=== PATIENT | male | born 1965 | race African-American/Black ===

== ENCOUNTER 2024-01-15 14:48 | Outpatient (AMB) | payer OTHER, SELFPAY ==
--- NOTE | 2024-01-15 14:53 | MHC.OFFVIS ---
Intake Visit Reasons: ENP-Neuropathy Intake Note: Patient presents for neuropathy Coding
[2024-01-15 14:59] VITALS: BP 120/84; PULSE 108; O2SAT 98; BMI 22.2
--- NOTE | 2024-01-15 14:59 | A.OFFVIS_ITS ---
Vital Signs 01/15/24 14:59 Height 5 ft 10 in Weight 155 lb BMI 22.2 BP 120/84 Blood Pressure Location Rt brachial Position Sitting Pulse 108 H Pulse Source Pulse Oximeter Pulse Oximetry (%) 98 Oxygen Delivery Method Room Air Intake Visit Reasons: ENP-Neuropathy Intake Note: Patient presents for neuropathy. I'm having numbness in feet at night time before going to bed. Allergies No Known Allergies Allergy (Verified 01/15/24 15:00) Medication List - Last Reconciled 01/15/24 by KRISTIN Ernst allopurinol 300 mg PO DAILY ferrous sulfate (Feosol) 325 mg PO DAILY [id number] 3,000-9,500- 15,000 unit (Creon) caps PO metformin ER 500 mg PO BID metoclopramide HCl 5 mg PO DAILY HPI Comments Details: 58-yr-old male presents for neurological evaluation of: BLE paresthesias. 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 He states he does not have diabetes, his HgA1C was elevated at some point but this has been normal for a while. Pt reports he has BLE distal 1/3 of calves down through entire foot pain and decreased sensation (if he curls his toes it feels funny), which is most noticable once he lies down in bed. He may occasionally have some non-bothersome sensations in his feet. Pt states that he has had this for a little while , at least a yr. He takes Gabapentin 300mg qhs, thinks it helps. Rarely has an episode of more intense BLE pain, again only in bed. He can feel a little off-balance when walking on stairs, finding himself needing to hold onto a banister/railing if on unfamiliar stairs. He can no longer stand on one leg. States if he is walking, he does feel his legs. He has had 4-5 episodes of syncope/pre-syncope- last episodes was 5-8 months ago, now thinks this was being active in hot weather, tries to pace himself and take fluids in the hot weather. DEscribes as seeing a white flash, dizziness, passes out, unsure of duration. When he comes to, he feels ok. One time, he was about to pass out, his brother sat him down and this prevented him from fulling passing out. He states he eats 1-2 meals per day, snacks, has at least 1 meal. Does take salt. Drinks juices/water/milk. Alcohol use- beer use varies- 6 pack/day most days, more if social gathering. Denies headaches, back/neck pain, leg cramps, restless legs, sleep issues. 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 He previously saw Dr Mata. States he has had a nerve conduction study. November labs showed- H&H 11.4 & 33.3, MCV 103.7H, B12 414, folate > 20, Sodium 131 (12/04) 134 (12/17), Ferritin 313 October 2022, MRI BRAIN WITHOUT CONTRAST: unremarkable. Jun 2022: HST- AHI 2/hr w/ O2 amanda 84% (SpO2 < 90% x's 14 min) [facility] Medical History (Updated 01/15/24 @ 16:46 by KRISTIN Ernst) Weight loss Pancreatitis Hyperlipidemia Allergic rhinitis Gout Fatty liver Atypical chest pain Syncope Pancreatic mass Diabetes Surgical History (Updated 01/15/24 @ 15:32 by ROYAL Villarreal) H/O vasectomy Hx of colonoscopy Family History (Updated 01/15/24 @ 15:02 by ROYAL Villarreal) Father HTN (hypertension) Mother HTN (hypertension) Social History (Updated 01/15/24 @ 15:02 by ROYAL Villarreal) Alcohol intake: current Patient Tobacco Use Status: Never used Tobacco Review of Systems Const All systems reviewed & are unremarkable except as noted in HPI and below Physical Exam Vital Signs: Last Vital Signs Pulse 108 H 01/15/24 14:59 BP 120/84 01/15/24 14:59 Pulse Ox 98 01/15/24 14:59 Oxygen Delivery Method Room Air 01/15/24 14:59 BMI result Body Mass Index 22.2 Const General: cooperative and no acute distress Orientation/consciousness: patient oriented x3 HEENT Head: Yes normocephalic Resp Effort & Inspection: normal respiratory effort and able to speak in complete sentences Neuro Other: RUE and BLE R > L tone. No tremor Tandem- slightly unsteady. General: patient oriented x3, Normal light touch and pain sensation and CN's II- XI intact bilaterally Cognition (Neuro): normal cognition Gait exam (Neuro): Normal gait present Motor exam (neuro): 5/5 motor strength present throughout Deep tendon reflexes (DTR's): Right triceps reflex intensity grade: 2+, Left triceps reflex intensity grade: 2+, Rt Biceps (C5, C6): 2+, Left biceps reflex intensity grade: 2+, Right brachioradialis reflex intensity grade: 2+, Left brachioradialis reflex intensity grade: 2+, Right patellar reflex intensity grade: 1+ and Left patellar reflex intensity grade: 1+ Coordination: atcnfk-wh-[id number] test normal and Romberg test negative Psych Appearance: grossly normal Mental Status: mental status grossly normal Speech and movement: Normal speech and movement present Affect: normal affect Attitude: cooperative Thought process: Normal thought process present Thought content: Normal thought content present Insight: Good insight present (Psych) Assessment & Plan Assessment & Plan (1) Peripheral neuropathy: Code(s): G62.9 - Polyneuropathy, unspecified Category: Medical (2) Anemia: Code(s): D64.9 - Anemia, unspecified Category: Medical Plan Check labs for nutritional deficiencies which may be causing/worsening BLE neuropathy s/s. Advised to start OTC Vitamin B complex. Advised to reduce alcohol intake- pt states he can stop at anytime. Will request previous EMG/NCS done through Dr Mata's office- if not done yet, will order BLE EMG/NCS. Pt seen in c/w Dr Chyna Ray. Orders: Orders Vitamin B1 Today D64.9 - Anemia, unspecified, G62.9 - Polyneuropathy, unspecified Vitamin B3 (Niacin) Today D64.9 - Anemia, unspecified, G62.9 - Polyneuropathy, unspecified Complete Blood Count Auto Diff Today D64.9 - Anemia, unspecified, G62.9 - Polyneuropathy, unspecified Comprehensive Met. Panel Today D64.9 - Anemia, unspecified, G62.9 - Polyneuropathy, unspecified Homocysteine Today D64.9 - Anemia, unspecified, G62.9 - Polyneuropathy, unspecified Vitamin B12 and Folate Today D64.9 - Anemia, unspecified, G62.9 - Santiago yneuropathy, unspecified Vitamin B2 (Riboflavin) Today D64.9 - Anemia, unspecified, G62.9 - Polyneuropathy, unspecified Vitamin B5 (Pantothenic Acid) Today D64.9 - Anemia, unspecified, G62.9 - Polyneuropathy, unspecified Vitamin B6 Today D64.9 - Anemia, unspecified, G62.9 - Polyneuropathy, unspecified Methylmalonic Acid Today D64.9 - Anemia, unspecified, G62.9 - Polyneuropathy, unspecified Coding Level of Care Code New Pt Level 4 (90497) Diagnoses Peripheral neuropathy G62.9 Anemia D64.9
== END 2024-01-15 16:12 | disposition home or self-care (01) ==
PROVIDERS: PCP Internal Medicine; Visit Provider Nurse Practitioner Family
DX: G62.9 Polyneuropathy, unspecified (principal); D64.9 Anemia, unspecified
CPT/HCPCS: 99204

== ENCOUNTER → 2024-01-15 14:48 | Outpatient (BNVA) | payer OTHER, SELFPAY | PROVIDERS: PCP Internal Medicine; Visit Provider Nurse Practitioner Family ==

== ENCOUNTER 2024-01-16 08:52 | Outpatient (REF) | payer OTHER, SELFPAY ==
[2024-01-16 18:12] LABS: Hematocrit 35.2 % (42.0-52.0); Hemoglobin 12.4 g/dl (14.0-18.0); Mean Corpuscular HGB Conc 35.2 g/dl (31.0-36.0); PLT CLUMP 1; Red Cell Distribution Width 12.3 % (11.0-16.0); SCAN SMEAR FLAG 1
[2024-01-16 18:15] LABS: Basophils Percent Auto 0.8 % (0-2); Eosinophils Absolute Auto 0.1 X10*3/uL (0.0-0.4); Eosinophils Percent Auto 3.3 % (0-4); Imm Gran Abs Auto 0.01 X10*3/uL (0.00-0.03); Imm Gran Pct Auto 0.4 % (0.0-0.4); Lymphocytes Absolute Auto 0.9 X10*3/uL (1.2-4.9); MANUAL DIFF FLAG SCAN; Mean Corpuscular Hemoglobin 36.5 pg (27.0-33.0); Mean Corpuscular Volume 103.5 fL (80.0-98.0); Monocytes Absolute Auto 0.3 X10*3/uL (0.1-1.2); Monocytes Percent Auto 11.1 % (2-11); Neutrophils Absolute Auto 1.2 x10*3/uL (2.0-8.3); Neutrophils Percent Auto 49.4 % (45-73)
[2024-01-16 18:38] LABS: Alanine Aminotransferase 26 U/L (0-40); Albumin Level 3.4 g/dL (3.5-5.0); Alkaline Phosphatase 114 U/L (39-117); Anion Gap 15 (12-20); Aspartate Amino Transferase 50 U/L (5-37); Bilirubin Total 0.9 mg/dL (0.0-1.0); Blood Urea Nitrogen 4 mg/dL (9-16); Calcium 9.2 mg/dL (8.4-10.2); Carbon Dioxide 26 mmol/L (22-29); Chloride 100 mmol/L (96-108); Estimated Glomerular Filt Rate > 60; Glucose Random 119 mg/dL (60-115); Potassium 4.5 mmol/L (3.3-5.1); Sodium 136 mmol/L (135-145); Total Protein 6.6 g/dL (6.5-8.0)
[2024-01-16 18:42] LABS: Platelet Count 140 X10*3/uL (160-400); White Blood Count 2.2 X10*3/uL (4.8-10.8)
[2024-01-16 18:43] LABS: SLIDE REVIEW VERIFIED
[2024-01-16 19:21] LABS: Folate 11.7 ng/mL (> or = 4.0); Vitamin B12 427 pg/mL (200-900)
[2024-01-17 20:38] LABS: Homocysteine 27.9 umol/L (<11.4)
[2024-01-21 10:54] LABS: Methylmalonic Acid 149 nmol/L (55-335)
[2024-01-22 14:04] LABS: Nicotinamide <20 ng/mL (see note); Vit B3 - Nicotinic Acid <20 ng/mL (see note)
[2024-01-27 06:34] LABS: Vitamin B1 <6 nmol/L (8-30)
[2024-02-02 12:59] LABS: Vitamin B6 45.7 ng/mL (2.1-21.7)
== END 2024-01-16 08:53 | disposition home or self-care (01) ==
LOC: HO.HKASLDS 08:52
PROVIDERS: Visit Provider Nurse Practitioner Family
DX: G62.9 Polyneuropathy, unspecified (principal); D64.9 Anemia, unspecified
CPT/HCPCS: 36415; 80053; 82607; 82746; 83090; 83921; 84207; 84252; 84425; 84591; 85025

== ENCOUNTER 2024-01-30 08:44 | Outpatient (REF) | payer OTHER, SELFPAY ==
[2024-01-30 16:39] LABS: Iron 105 mcg/dL (45-160); Percent Iron Saturation 53 % (15-50); Total Iron Binding Capacity 198 mcg/dL (228-428); Unsaturated Iron Binding 93 ug/dL
[2024-01-30 16:56] LABS: Ferritin 241 ng/mL (20-250)
[2024-01-31 14:43] LABS: Transferrin 171 mg/dL (188-341)
== END 2024-01-30 08:45 | disposition home or self-care (01) ==
LOC: HO.HKASLDS 08:44
PROVIDERS: Visit Provider Nurse Practitioner Family
DX: D64.9 Anemia, unspecified (principal)
CPT/HCPCS: 36415; 82728; 83540; 84466

== ENCOUNTER 2024-07-22 13:49 | Outpatient (AMB) | payer OTHER, SELFPAY ==
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
[2024-07-22 14:04] VITALS: BP 120/84; PULSE 88; O2SAT 97; BMI 23.5
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
--- OUTSIDE RECORDS SUMMARY | 2024-07-22 16:31 | XMS_ITS | Encounter Summary ---
Author Organization [facility] Address [address] [place] [address] Care Team Providers Care Doula Name Role Phone Sriram Moreland MD Primary Care Provider [phone] Reason for Visit * Reason Comments Rash On back for about 6 months itchy Encounter Details Date Type Department Care Team (Late st Contact Info) Description 07/11/2024 9:45 AM EST Office Visit Walk-In Clinic [facility] [address] [place] [id number] Jose Ocasio PA [address] [place] [address] Tinea versicolor (Primary Dx) Social History Tobacco Use Types Packs/Day Years [...] on file documented as of this encounter Last Filed Vital Signs Vital Sign Reading Time Taken Comments Blood Pressure 106/62 07/11/2024 9:47 AM EST Pulse 104 07/11/2024 9:47 AM EST Temperature 36.4 ??C (97.6 ??F) 07/11/2024 9:47 AM ES T Respiratory Rate - - Oxygen Saturation 99% 07/11/2024 9:47 AM EST Inhaled Oxygen Concentration - - Weight - - Height - - Body Mass Index - - documented in this encounter Ordered Prescriptions Prescription Sig Dispense Quantity Refills Last Filled Start Date End Date fluconazole (DIFLUCAN) 150 mg tablet Take 2 tablets by mouth at the same time once weekly until resolution, up to 4 weeks. 8 tablet 07/11/2024 documented in this encounter Progress Notes * LUCIANO Greene - 07/11/2024 9:45 AM EST CHIEF COMPLAINT: Chief Complaint Patient presents with Rash On back for about 6 months itchy HPI: Mikey Vann Jr. is a 59 y.o. old male presenting with about 6 months of itchy rash on the trunk and back inside of the legs. The region is itching intermittently. He received ciclopirox cream which he has been using for a couple of days and states that it is helping the areas to feel better, however he has sites on his back that he has not been able to reach. Requesting alternative therapy sincehe cannot apply cream to his back and has no one at home to help him apply at a regular basis. ROS: Remainder of the 12 point review of symptoms unremarkable except for those idenitified in the HPI. PAST MEDICAL HISTORY: Patient Active Problem List Diagnosis Date Noted Tinea pedis of both feet 07/06/2024 Tinea corporis 07/06/2024 Insomnia 07/06/2024 Lung nodule 07/23/2023 Syncope 08/20/2022 Atypical chest pain 08/14/2022 Type 2 diabetes mellitus with microalbuminuria ([facility]) 04/17/2021 Type 2 diabetes mellitus with diabetic neuropathy ([facility]) 06/17/2020 Pancreatic mass 12/14/2016 Fatty liver 08/04/2013 Allergic rhinitis 05/01/2006 Gout 05/01/2006 Hyperlipidemia 06/18/2005 Past Surgical History: Procedure Laterality Date COLONOSCOPY 03/12/2014 PROCEDURE: HISTORICAL COLONOSCOPY; COMMENT: Urgent procedure as inpt at [facility]; sub-optimal prep; not an adequate screening exam. COLONOSCOPY 03/21/2010 PROCEDURE: HISTORICAL COLONOSCOPY; COMMENT: Up to cecum, good preparation, 2 rectal polyps removed:hyperplastic UPPER GASTROINTESTINAL ENDOSCOPY 03/09/2014 PROCEDURE: CA UPPER GI ENDOSCOPY PERFORMED; COMMENT: Rickie; normal. VASECTOMY 2002 PROCEDURE: CA VASECTOMY UNI/BI SPX W/POSTOP SEMEN EXAMS SOCIAL HISTORY: Social History Tobacco Use Smoking status: Never Smokeless tobacco: Never Substance Use Topics Alcohol use: Yes FAMILY HISTORY: Family History Problem Relation Name Age of Onset Diabetes Mother emphysema, Copd, smoker, normal [id number] level Stroke Maternal Grandfather Other (Other: TB) Paternal Grandmother Hypertension Father HTN, 3 adenomatous transverse colon polyps Colon polyps Father Glaucoma Maternal Grandmother CRF-dialysis Asthma Brother Hypertension Brother Family Status Relation Name Status Mother at age 60 MGF PGM Father Alive MGM (Not Specified) Brother Alive Brother Alive PGF at age 67 No partnership data on file MEDICATIONS DISCONTINUED/REORDERED: There are no discontinued medications. ACTIVE MEDICATIONS: No outpatient medications have been marked as taking for the 07/11/24 encounter (Office Visit) with LUCIANO Greene. ALLERGIES: Allergies Allergen Reactions Other Seasonal Allergies PHYSICAL EXAM: Vitals: 07/11/24 0947 BP: 106/62 Pulse: 104 Temp: 36.4 ??C (97.6 ??F) SpO2: 99% CONSTITUTIONAL: alert, calm, cooperative, in no acute distress HEAD: normocephalic, atraumatic EYES: extraocular movement intact (EOMI), sclera non-icteric EARS: no hearing deficit noted NECK/THYROID: neck range of motion grossly intact SKIN: warm and dry. Scaling xerotic well-demarcated hyperpigmented patches noted scattered along the trunk, multiple sites coalescing into large plaques which are irregular but up to a region of 13 cm in diameter. Skin type IV. LUNGS: respirations regular rate and depth without acute distress EXTREMITIES: no clubbing, cyanosis, or edema NEUROLOGIC: alert and oriented, no tremor, cranial nerves II-XII grossly intact PSYCH: mood/affect full range, speech clear, good eye contact, cooperative with exam LABS/IMAGING: None Lab Results Component Value Date EGFR 104 04/07/2024 IMPRESSION: 1. Tinea versicolor PLAN: The patient's PMH, problem list and medications were reviewed in reference to the above diagnosis/diagnoses. Based on ROS, HPI, and PE, suggestive of tinea versicolor. Patient unable to reach the sites on hisback that are affected and unable to apply topical antifungals. Oral antifungal indicated. Educated patient to keep the area clean and dry. May moisturize as needed. Initiate fluconazole 300 mg by mouth once weekly until resolution, approximately 2-4 weeks. The risks and benefits of this medication were discussed with the patient. The patient understands the potential side effects and basic interactions of this medication. The patient is asked to call me or my colleagues if they begin to experience any difficulties with this medication. Advised to follow up with PCP in if symptoms do not improve. Advised to follow up with UC or PCP immediately for new or worsening symptoms. Educated on red flags symptoms. Advised to go to the ER or call 911 for these symptoms. Patient understands the plan. Patient verbalizes agreement with the plan. No orders of the defined types were placed in this encounter. Other orders fluconazole (DIFLUCAN) 150 mg tablet; Take 2 tablets by mouth at the same time once weekly until resolution, up to 4 weeks. LUCIANO Greene on 07/11/2024 at 10:15 AM EST Today's documentation was made using voice recognition software. This note may contain grammatical errors secondary to this software. Cosigned by Geoff Cyr MD at 07/16/2024 12:05 PM EST documented in this encounter Plan of Treatment Upcoming Encounters Date Type Department Care Team (Late st Contact Info) Description 10/01/2024 11:30 AM EDT Office Visit Internal Medicine - [address] [phone] Sriram Moreland MD [address] [place] [address] 10/05/2024 1:30 PM EDT Office Visit Internal Medicine - [address] [phone] Ele Lyon NP [address] [place] [address] documented as of this encounter Visit Diagnoses Diagnosis Tinea versicolor- Primary Pityriasis versicolor documented in this encounter Care Teams Doula Relationship Specialty Start Date End Date Sriram Moreland MD [address] [place] [id number] PCP - General Internal Medicine 01/18/20 documented as of this encounter
--- OUTSIDE RECORDS SUMMARY | 2024-07-22 16:31 | XMS_ITS | Clinical Summary ---
Author Organization [address] [facility] Building Address [address] [place] [phone] Phone Care Team Providers Care Cs Associate Name Role Phone Sriram Moreland MD Primary Care Provider [phone] Allergies Active Allergy Reactions Criticality Noted Date Comments Other 11/18/2012 Seasonal Allergies Medications allopurinoL (ZYLOPRIM) 300 mg tablet Take 1 tablet (300 mg total) by mouth 1 (one) time each day. 4 Active gabapentin (NEURONTIN) 300 mg capsule Take 1 cap before sleep 4 Active multivitamin with minerals (MULTIPLE VITAMIN-MINERAL S ORAL) Take 1 capsule by mouth 1 (one) time each day. Active pantoprazole (PROTONIX) 40 mg EC tablet TAKE 1 TAB BY MOUTH DAILY IN THE AM ON EMPTY STOMACH, WAIT 30 MIN & THEN EAT TO ACTIVATE MEDICATION 4 Active pancrelipase, Yck-Ndfz-Ddmo, (Creon) 24,000-76,000 -120,000 unit capsule Take 1 Capsule by mouth 3 times daily. 0 Active cyanocobalamin (VITAMIN B-12) 500 mcg tablet Take 1 tablet (500 mcg total) by mouth 1 (one) time each day. for 30 days 4 Active metFORMIN XR (GLUCOPHAGE-XR) 500 mg 24 hr tablet TAKE 1 TABLET BY MOUTH TWICE A DAY WITH FOOD 180 tablet 1 4 Active mirtazapine (REMERON) 7.5 mg tabletIndicatio ns:Insomnia, unspecified type Take 1 tablet (7.5 mg total) by mouth at bedtime. at bedtime. 90 tablet 3 5 Active ciclopirox (LOPROX) 0.77 % creamIndication s:Tinea pedis of both feet,Tinea corporis Apply thin layer to affected area BID for 2 weeks then stop. 30 g 5 Active fluconazole (DIFLUCAN) 150 mg tablet Take 2 tablets by mouth at the same time once weekly until resolution, up to 4 weeks. 8 tablet 5 Active mirtazapine (REMERON) 7.5 mg tablet Take 1 Tablet by mouth at bedtime. 4 07/06/19 25 Discontin ued(Reord er) Active Problems Problem Noted Date Diagnosed Date Tinea pedis of both feet 07/06/2024 Tinea corporis 07/06/2024 Insomnia 07/06/2024 Lung nodule 07/23/2023 Assessment & Plan (04/07/2024 1:38 PM EST): I have ordered a CT chest again and advised patient to make sure he books appointment to follow-up on his lung nodule. Orders: CT Chest wo Contrast; Future Syncope 08/20/2022 Overview (02/25/2024): - Recurrent episodes that are vaguely described but sound orthostatic in nature with clear prodrome of tunnel vision, diaphoresis followed by loss of consciousness or near loss of consciousness - Orthostatics trending towards positive on today's exam - Has had an unexplained weight loss over the past couple of years Last Assessment & Plan: Likely secondary to orthostasis/vasovagal phenomenon At this point, I am discontinuing his antihypertensive medications-he is normotensive today and in reviewing his flowsheets, he has actually had some blood pressures that are below 100 systolic; he trended fairly heavily towards having orthostatic vital signs being positive (there was ultimately more than a 20 point drop in systolic blood pressure from lying to standing) Consider hematology/oncology work-up for pancytopenia, unexplained weight loss-ultimately I defer to his PCP No primary cardiac cause suspected Counseled him specifically on alcohol cessation or at least cutting back significantly as undoubtedly this is affecting his current physiology Atypical chest pain 08/14/2022 Overview (02/25/2024): - Exercise stress echocardiogram on 06/06/2022: He exercised for just over 6 minutes to 95% of max predicted heart rate with no echocardiographic evidence of ischemia or infarction. He did not have any resting wall motion abnormalities and had a preserved ejection fraction of 55 to 60%. Last Assessment & Plan: Noncardiac-reassuring exercise stress echo, no further work-up Type 2 diabetes mellitus with microalbuminuria 1 06/17/2020 Type 2 diabetes mellitus with diabetic neuropath y 06/17/2020 Assessment & Plan (04/07/2024 1:39 PM EST): Will monitor A1c. Diabetic diet discussed. If diabetes improves, I will reduce his metformin dose. He is on gabapentin for neuropathy. Strongly advised him to quit drinking alcohol for his neuropathy. 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 Resolved as of February 2020 Fatty liver 08/04/2013 Assessment & Plan (04/07/2024 1:39 PM EST): Will monitor LFTs. He is being followed by GI as well. Orders: Comprehensive metabolic panel; Future Allergic rhinitis 05/01/2006 Gout 05/01/2006 Assessment & Plan (04/07/2024 1:39 PM EST): Under control with allopurinol. Hyperlipidemia 06/18/2005 Encounters Date Type Department Care Team Description 07/11/2024 9:45 AM EST Office Visit [facility] - [place] [address] [place] [phone] Jose Ocasio PA Tinea versicolor (Primary Dx) 07/10/2024 Telephone Internal Medicine - [facility] [address] [place] [phone] Sriram Moreland MD Rash 07/06/2024 2:30 PM EST Office Visit Internal Medicine - [address] [phone] Ele Lyon, EM Tinea pedis of both feet (Primary Dx); Tinea corporis; Insomnia, unspecified type 06/29/2024 1:45 PM EST Office Visit [facility] Hematology Oncology [address] [place] [phone] Marta Mack MD Anemia, unspecified type; Thrombocytopenia (CMS/HCC) 06/25/2024 Lab Requisition [facility] - Main Lab [address] [facility] [place] [phone] Jose Covarrubias MD Dysuria 06/12/2024 1:00 PM EST Office Visit Gastroenterology [facility] [address] [facility] [address] [facility] [address] [place] [phone] Jan Hoover, PA Fatty liver (Primary Dx); Elevated LFTs; Pancreatic insufficiency; Diabetes 1.5, managed as type 2 (CMS/HCC) 05/25/2024 Telephone Internal Medicine - [address] [phone] Sriram Moreland MD Call Back 04/27/2024 8:53 AM EST - 04/27/2024 11:59 PM EST Hospital Encounter CT Scan - [address] [phone] Lung nodule Discharge Disposition: Home or Self Care from Last 3 Months Immunizations Name Administration Dates Next Due Influenza Quadravalent, MDCK , 0.5ml, preservative free (Flucelvax) 6mo and older 08/06/2019 Influenza trivalent, with pr eservative (Fluzone; Afluria) 6mo and older 02/29/2012,02/21/2011,05/06/2007,05/01 MMR, measles mumps and rubel la Live (Priorix; M-M-R II) 12mo and older 04/25/2012 Pneumococcal polysaccharide 23 valent (Pneumovax 23) 2yo and older 04/18/2021 Td Tetanus diptheria (Tdvax) 7yo and older 05/01/2006 Tdap Tetanus diptheria acell ular pertussis (Boostrix; Adacel) 7yo and older 12/05/2023,08/03/2013 Zoster recombinant (Shingrix ) 19yo and older 08/07/2021 Surgical History Surgery Date Site/Laterality Comments VASECTOMY 2002 PROCEDURE: KS VASECTOMY UNI/BI SPX W/POSTOP SEMEN EXAMS COLONOSCOPY 03/12/2014 PROCEDURE: HISTORICAL COLONOSCOPY; COMMENT: Urgent procedure as inpt at [facility]; sub-optimal prep; not an adequate screening exam. COLONOSCOPY 03/21/2010 PROCEDURE: HISTORICAL COLONOSCOPY; COMMENT: Up to cecum, good preparation, 2 rectal polyps removed: hyperplastic UPPER GASTROINTESTINAL ENDOSCOPY 03/09/2014 PROCEDURE: KS UPPER GI ENDOSCOPY PERFORMED; COMMENT: Rickie; normal. Medical History Medical History Date Comments Fatty liver 08/04/2013 DX:Fatty liver Allergic rhinitis 05/01/2006 DX:Allergic rh initis Gout 05/01/2006 DX:Gout Hyperlipidemia 06/18/2005 DX:Hyperlipidemi a History of pancreatitis 02/24/2015 DX:Histo ry of pancreatitis Hypertension 05/01/2006 DX:Hypertension History of chronic pancreatitis 12/14/2016 DX:History of chronic pancreatitis; COMMENT: 3 enlarging cystic masses noted on MRI 07/2016 COVID-19 virus detected 04/24/2020 DX:COVID -19 virus detected; COMMENT: 04/24/2020--- positive precolonoscopy COVID-19 test. Type 2 diabetes mellitus wit h diabetic neuropathy (CMS/HCC) 06/17/2020 DX:Type 2 diabetes melli tus with diabetic neuropathy (HCC) Type 2 diabetes mellitus wit h microalbuminuria (CMS/HCC) 04/17/2021 DX:Type 2 diabetes mellitus with microalbuminuria (HCC) Weight loss DX:Weight loss Pancreatitis DX:Pancreatitis Gastritis DX:Gastritis Weight loss, abnormal DX:Weight loss, abnormal Decreased appetite DX:Decreased appetite Esophageal reflux DX:Esophageal reflux Chronic pancreatitis (CMS/HCC) D X:Chronic pancreatitis (HCC) Lung nodule 07/23/2023 DX:Lung nodule Family History Medical History Relation Name Comments Asthma Brother 1 Hypertension Brother 2 Colon polyps Father Hypertension Father HTN, 3 adenomat ous transverse colon polyps Stroke Maternal Grandfather Glaucoma Maternal Grandmother CRF-otis lysis Diabetes Mother emphysema, Copd , smoker, normal [id number] level Other: TB Paternal Grandmother Relation Name Status Comments Brother 1 Alive Brother 2 Alive Father Alive Maternal Grandfather Maternal Grandmother Mother (Age 60) Paternal Grandfather (Age 67) Paternal Grandmother Social History Tobacco Use Types Packs/Day Years Used Date Smoking Tobacco: Never Smokeless Tobacco: Never Tobacco Cessation:Counseling Given: Not Answered Alcohol Use Standard Drinks/Week Comments Yes 0 (1 standard drink = 0.6 oz pur e alcohol) Sex and Gender Information Value Date Recorded Sex Assigned at Not on file Legal Sex Male 9:20 PM EST Gender Identity Not on file Sexual Orientation Not on file Obstetrics History Last Filed Vital Signs Vital Sign Reading Time Taken Comments Blood Pressure 106/62 07/11/2024 9:47 AM EST Pulse 104 07/11/2024 9:47 AM EST Temperature 36.4 ??C (97.6 ??F) 07/11/2024 9:47 AM ES T Respiratory Rate - - Oxygen Saturation 99% 07/11/2024 9:47 AM EST Inhaled Oxygen Concentration - - Weight 73.1 kg (161 lb 1.6 oz) 07/06/2024 2:34 P M EST Height 177.8 cm (5' 10 ) 06/12/2024 1:04 PM EST Body Mass Index 23.12 06/12/2024 1:04 PM EST Plan of Treatment Upcoming Encounters Date Type Department Care Team (Late st Contact Info) Description 10/01/2024 11:30 AM EDT Office Visit Internal Medicine - [address] [phone] Sriram Moreland MD [address] [place] [address] 10/05/2024 1:30 PM EDT Office Visit Internal Medicine - [address] [phone] Ele Lyon NP [address] [place] [address] Health Maintenance Due Date Last Done Comments Diabetes: Annual Retina Eye Exam 1975 Hepatitis A Vaccines (1 of 2 - Risk 2-dose series) 1984 Hepatitis B Vaccines (1 of 3 - 19+ 3-dose series) 1984 Pneumococcal Vaccine: 50+ Years (2 of 2 - PCV) 04/18/2022 04/18/2021 Pneumococcal Vaccine: Pediatrics (0 to 5 Years) and At-Risk Patients (6 to 64 Years) (2 of 2 - PCV) 04/18/2022 04/18/2021 Depression Screening 04/21/2022 Social Influencers of Health Screening 04/21/2022 COVID-19 Vaccine ( season) 2024 06/23/2021, 08/25/2020, 07/29/2020 Influenza Vaccine (#1) 2024 , 02/29/2012, 02/21/2011, Additional history exists Diabetes: Annual Foot Exam 04/02/2024 04/02/2023 Diabetes: Blood Sugar Control Test (HGBA1C) 10/05/2024 04/07/2024, 12/05/2023, 12/05/2023 Diabetes: Annual Urine Albumin-Creatinine Ratio (uACR) 12/17/2024 12/18/2023 Diabetes: Annual GFR (Glomerular Filtration Rate) 04/07/2025 04/07/2024, 12/05/2023, 12/05/2023 Cholesterol Screening (Lipid Panel) 12/04/2028 12/05/2023, 07/01/2023 Colorectal Cancer Screening: Colonoscopy 08/04/2031 08/03/2021 DTaP,Tdap,and Td Vaccines (4 - Td or Tdap) 12/04/2033 12/05/2023, 08/03/2013, 05/01/2006 RSV Immunization Patients 60+ Years Old (1 - 1-dose 75+ series) 2040 MMR Vaccines Aged Out 04/25/2012 No longer eligi ble based on patient's age to complete this topic Zoster Vaccines Completed 08/07/2021, 06/22/2021 HIV Screening Completed 05/03/2022 Hepatitis C Screening Completed 04/02/2023 HIB Vaccines Aged Out No longer eligi ble based on patient's age to complete this topic HPV Vaccines Aged Out No longer eligi ble based on patient's age to complete this topic IPV Vaccines Aged Out No longer eligi ble based on patient's age to complete this topic Meningococcal ACWY Vaccine Aged Out N o longer eligible based on patient's age to complete this topic Meningococcal B Vacine Aged Out No lo nger eligible based on patient's age to complete this topic RSV Immunization Patients Under 20 months Aged Out No longer eligible based on patient's age to complete this topic Varicella Vaccines Aged Out No longer eligible based on patient's age to complete this topic Procedures Procedure Name Priority Date/Time Associated Diagnosis Comments CHLAMYDIA TRACHOMATIS AND NEISSERIA GONORRHOEAE PCR Routine 06/25/2024 12:[address] CHEST WO CONTRAST Routine 04/27/2024 9:03 AM EST Lung nodule COMPREHENSIVE METABOLIC PANEL Routine 04/07/2024 1:45 PM EST Fatty liver HEMOGLOBIN A1C Routine 04/07/2024 1:45 PM EST Type 2 diabetes mellitus with diabetic neuropathy, without long-term current use of insulin ([facility]/HCC) URINE ALBUMIN CREATININE RATIO Routine 12/18/2023 LIPID PANEL Routine 12/05/2023 HEPATITIS C SCREENING Routine 04/02/2023 DIABETES FOOT EXAM Routine 04/02/2023 HIV SCREENING Routine 05/03/2022 COLONOSCOPY Routine 08/03/2021 from Last 3 Months or Most Recently Relevant to Health Maintenance Results * Chlamydia trachomatis and Neisseria gonorrhoeae molecular study (06/25/2024 12:00 AM EST) Neisseria gonorrhoeae PCR Negative Negative LAB MOLECULAR DIAGNOSTICS METHOD 06/25/2024 5:36 PM EST [facility] Chlamydia trachomatis PCR Negative Negative LAB MOLECULAR DIAGNOSTICS METHOD 06/25/2024 5:36 PM EST [facility] Urine Urethral structure / Unknown Non-blood Collection / Unknown 06/25/2024 06/25/2024 2:34 PM EST us Jose Covarrubias MD LAB MICROBIOLOGY - GENERAL ORDER LAXMI Final Result [facility] [address] [place] [address], [place] [phone] * CT Chest wo Contrast (04/27/2024 9:03 AM EST) Anatomical Region Laterality Modality Body Computed Tomogra phy 04/27/2024 9:50 AM EST Impressions 04/27/2024 10:17 AM EST Platelike nodularity along the bilateral fissures as described above, stable from June 2023. -------- FINAL REPORT -------- Dictated By: Jazmyne Kumar Dictated Date: 04/27/2024 09:50 ET Assigned Physician: Jazmyne Kumar Reviewed and Electronically Signed By: Jazmyne Kumar Signed Date: 04/27/2024 10:17 ET Workstation ID: [id number] Transcribed By: Self Edit Transcribed Date: 04/27/2024 09:50 ET Narrative 04/27/2024 10:[address] CHEST WO CONTRAST TECHNIQUE: Multidetector CT of the chest was performed without intravenous contrast. COMPARISON: Chest CT on July 09, 2023. ??MRI of the abdomen on August 02, 2023 HISTORY: follo wup on lung nodule FINDINGS: Lungs: Central airways are patent. ??No focal consolidation. ??Tiny 0.2 cm pulmonary nodule in the anteromedial aspect of the left upper lobe is unchanged (2:81). ??Previously seen right middle lobe nodule measuring up to 0.5 cm appears to represent a platelike thickening of the right minor fissure (2:155, sagittal 80,342:151). ??Nodularity and focal platelike thickening along the left major fissure are unchanged: 2:143, 2:148, 2:155. Pleura: No pleural effusion or pneumothorax. Mediastinum: Heart is normal in size. ??Severe coronary artery calcifications. ??No pericardial effusion. ??Unchanged caliber of the ascending thoracic aorta measuring up to 3.3 cm on the coronal plane (80,341:44). Lymph Nodes: No lymphadenopathy. Upper Abdomen: Hepatic steatosis. ??Vascular calcifications. ??Chronic findings of the pancreas were better seen on the previous MR study. Chest Wall: No concerning findings. Bones: No suspicious bone lesions. Procedure Note Jazmyne Kumar MD - 04/27/2024 CT CHEST WO CONTRAST TECHNIQUE: Multidetector CT of the chest was performed without intravenouscontrast. COMPARISON: Chest CT on July 09, 2023. MRI of the abdomen on 2023 HISTORY: follo wup on lung nodule FINDINGS: Lungs: Central airways are patent. No focal consolidation. Tiny 0.2 cmpulmonary nodule in the anteromedial aspect of the left upper lobe isunchanged (2:81). Previously seen right middle lobe nodule measuring upto 0.5 cm appears to represent a platelike thickening of the right minorfissure (2:155, sagittal 80,342:151). Nodularity and focal platelikethickening along the left major fissure are unchanged: 2:143, 2:148,2:155. Pleura: No pleural effusion or pneumothorax. Mediastinum: Heart is normal in size. Severe coronary arterycalcifications. No pericardial effusion. Unchanged caliber of theascending thoracic aorta measuring up to 3.3 cm on the coronal plane(80,341:44). Lymph Nodes: No lymphadenopathy. Upper Abdomen: Hepatic steatosis. Vascular calcifications. Chronicfindings of the pancreas were better seen on the previous MR study. Chest Wall: No concerning findings. Bones: No suspicious bone lesions. IMPRESSION: Platelike nodularity along the bilateral fissures as described above,stable from June 2023. -------- FINAL REPORT -------- Dictated By: Jazmyne Kumar Dictated Date: 04/27/2024 09:50 ET Assigned Physician: Jazmyne Kumar Reviewed and Electronically Signed By: Jazmyne Kumar Signed Date: 04/27/2024 10:17 ET Workstation ID: [id number] Transcribed By: Self Edit Transcribed Date: 04/27/2024 09:50 ET Sriram Moreland MD IMG CT PROCEDURES Final R esult * Hemoglobin A1c (04/07/2024 1:45 PM EST) Pathologist [facility] Hemoglobin A1C 5.0 <6.5 % LAB CHEMISTRY METHOD 04/08/2024 1:01 PM EST [facility] Mean Bld Glu Estim. 97 mg/dL LAB CHEMISTRY METHOD 04/08/2024 1:01 PM [facility] Blood Venous blood specimen / Unknown Venipuncture / Unknown 04/07/2024 1:45 PM EST 04/07/2024 1:45 PM EST Sriram Moreland MD LAB BLOOD ORDERABLES Cathleen l Result [facility] [address] [place] [address], * (ABNORMAL) Comprehensive metabolic panel (04/07/2024 1:45 PM EST) [facility] Sodium 136 133 - 145 mmol/L LAB CHEMISTRY METHOD 04/07/2024 6:23 PM [facility] Potassium 4.3 3.5 - 5.5 mmol/L LAB CHEMISTRY METHOD 04/07/2024 6:23 PM [facility] Chloride 101 96 - 110 mmol/L LAB CHEMISTRY METHOD 04/07/2024 6:23 PM [facility] CO2 26 21 - 32 mmol/L LAB CHEMISTRY METHOD 04/07/2024 6:23 PM [facility] Anion Gap 9 3 - 11 LAB CHEMISTRY METHOD 04/07/2024 6:23 PM [facility] Glucose 112(H) 70 - 100 mg/dL LAB CHEMISTRY METHOD 04/07/2024 6:23 PM [facility] BUN 4(L) 5 - 25 mg/dL LAB CHEMISTRY METHOD 04/07/2024 6:23 PM [facility] Creatinine 0.77 0.70 - 1.30 mg/dL LAB CHEMISTRY METHOD 04/07/2024 6:23 PM [facility] eGFR 104 >=60 mL/min/1. 73m2 LAB CHEMISTRY METHOD 04/07/2024 6:23 PM [facility] Comment:Calculation based on the??Chronic Kidney Disease Epidemiology Collaboration (CKD-EPI) equation refit??without adjustment for race. BUN/Creatinine Ratio 5.2 LAB CHEMISTRY METHOD 04/07/2024 6:23 PM [facility] Calcium 8.9 8.5 - 10.5 mg/dL LAB CHEMISTRY METHOD 04/07/2024 6:23 PM [facility] AST (SGOT) 92(H) 10 - 42 unit/L LAB CHEMISTRY METHOD 04/07/2024 6:23 PM [facility] ALT (SGPT) 39 10 - 60 unit/L LAB CHEMISTRY METHOD 04/07/2024 6:23 PM [facility] Alkaline Phosphatase 131(H) 42 - 121 unit/L LAB CHEMISTRY METHOD 04/07/2024 6:23 PM [facility] Total Protein 6.6 6.0 - 8.0 g/dL LAB CHEMISTRY METHOD 04/07/2024 6:23 PM [facility] Albumin 3.1(L) 3.2 - 5.0 g/dL LAB CHEMISTRY METHOD 04/07/2024 6:23 PM [facility] Total Bilirubin 1.1 0.0 - 1.4 mg/dL LAB CHEMISTRY METHOD 04/07/2024 6:23 PM [facility] Blood Venous blood specimen / Unknown Venipuncture / Unknown 04/07/2024 1:45 PM EST 04/07/2024 1:45 PM EST Sriram Moreland MD LAB BLOOD ORDERABLES Cathleen l Result [facility] [address] [place] [address], [place] [phone] * Urine Albumin Creatinine Ratio (12/18/2023) [facility] Urine Albumin Creatinine Ratio abstracted Historical Provider HEALTH MAINTENANCE Final Result * Lipid panel (12/05/2023) [facility] Cholesterol 105 0 - 200 mg/dL Blood Venous blood specimen / Unknown Result [facility] Provider LAB BLOOD ORDERABLES Cathleen l Result * Hepatitis C Screening (04/02/2023) [facility] Hepatitis C Screening abstracted Historical Provider HEALTH MAINTENANCE Final Result * Diabetes Foot Exam (04/02/2023) [facility] Diabetes: Annual Foot Exam abstracted Result [facility] Historical Provider HEALTH MAINTENANCE Final Result * HIV Screening (05/03/2022) [facility] HIV Screening abstracted Result [facility] Provider HEALTH MAINTENANCE Final Result * Colonoscopy (08/03/2021) [facility] Colonoscopy no interpretation , abstracted Anatomical Region Laterality Modality Other Result [facility] Historical Provider HEALTH MAINTENANCE Final Result from Last 3 Months or Most Recently Relevant to Health Maintenance Insurance [employer] Advance Directives Documents on File Type Date Recorded Patient Design Consultant Expl anation Health Care Decision (hx) 01/19/2020 AD GEORGE DIRECTIVE Health Care Decision (hx) 01/19/2020 AD GEORGE DIRECTIVE Health Care Decision (hx) 01/19/2020 AD GEORGE DIRECTIVE Health Care Decision (hx) 01/19/2020 AD GEORGE DIRECTIVE Health Care Decision (hx) 01/19/2020 AD GEORGE DIRECTIVE Health Care Decision (hx) 01/19/2020 AD GEORGE DIRECTIVE Health Care Decision (hx) 01/19/2020 AD GEORGE DIRECTIVE Health Care Decision (hx) 01/19/2020 AD GEORGE DIRECTIVE Health Care Decision (hx) 01/19/2020 AD GEORGE DIRECTIVE Health Care Decision (hx) 01/19/2020 AD GEORGE DIRECTIVE Health Care Decision (hx) 01/19/2020 AD GEORGE DIRECTIVE Care Teams Cs Associate Relationship Specialty Start Date End Date Sriram Moreladn MD [address] [place] [id number] PCP - General Internal Medicine 01/18/20
--- OUTSIDE RECORDS SUMMARY | 2024-07-22 16:31 | XMS_ITS | Encounter Summary ---
Author Organization [facility] Address [address] [place] [address] Care Team Providers Care Mold Cutting Machine Operator Name Role Phone Sriram Moreland MD Primary Care Provider [phone] [phone] Reason for Visit * Reason Comments Follow-up * Consultation (Routine) - Closed Specialty Diagnoses / Procedures Referred By Contstephon t Referred To Contact Hematology and Oncology Diagnoses Anemia, unspecified type Thrombocytopenia (CMS/HCC) Sriram Moreland MD [address] [place] [address] Phone: tel: fax: [facility] Hematology Oncology [address] [place] [phone] Phone: tel: fax: Referral ID Status Reason Start Date Expiration Date V isits Requested Visits Authorized [id number] Closed Specialty Services Required 04/12/2024 04/12/2025 1 1 Encounter Details Date Type Department Care Team (Late st Contact Info) Description 06/29/2024 1:45 PM EST Office Visit [facility] Hematology Oncology [address] [place] [phone] Marta Mack MD [address] [place], [place] [id number] Anemia, unspecified type; Thrombocytopenia (CMS/HCC) Social History Tobacco Use Types Packs/Day Years [...] Sign Reading Time Taken Comments Blood Pressure 137/79 06/29/2024 1:52 PM EST Pulse 93 06/29/2024 1:52 PM EST Temperature 36.8 ??C (98.2 ??F) 06/29/2024 1:52 PM ES T Respiratory Rate - - Oxygen Saturation 99% 06/29/2024 1:52 PM EST Inhaled Oxygen Concentration - - Weight 72.6 kg (160 lb) 06/29/2024 1:52 PM EST Height - - Body Mass Index 22.96 06/12/2024 1:04 PM EST documented in this encounter Progress Notes * Marta Mack MD - 06/29/2024 1:45 PM EST ONC CANCER FOLLOW UP CHIEF COMPLAINT: Follow-up IDENTIFIER:Mikey Vann Jr. is a 59 y.o. male. HPI: 59-year-old man with multiple medical issues including chronic liver disease/pancreatitis due to alcohol, patient saw me a couple years ago regarding pancytopenia, patient was sees pancytopenia is secondary to chronic liver disease, patient recent labs again showed mild to moderate pancytopenia with elevation of liver enzymes. ROS: Has been feeling fair No significant recurrent infection Denies any chest pain shortness of breath or cough Denies any abdominal pain or discomfort Denies any significant bleeding bruising PAST MEDICAL HISTORY: Patient Active Problem List Diagnosis Allergic rhinitis Atypical chest pain Fatty liver Gout Hyperlipidemia Lung nodule Pancreatic mass Syncope Type 2 diabetes mellitus with diabetic neuropathy (CMS/HCC) Type 2 diabetes mellitus with microalbuminuria (CMS/HCC) Past Medical History: Diagnosis Date Allergic rhinitis 05/01/2006 DX:Allergic rhinitis Chronic pancreatitis (CMS/HCC) DX:Chronic pancreatitis (HCC) COVID-19 virus detected 04/24/2020 DX:COVID-19 virus detected; COMMENT: 04/24/2020--- positive precolonoscopy COVID- 19 test. Decreased appetite DX:Decreased appetite Esophageal reflux DX:Esophageal reflux Fatty liver 08/04/2013 DX:Fatty liver Gastritis DX:Gastritis Gout 05/01/2006 DX:Gout History of chronic pancreatitis 12/14/2016 DX:History of chronic pancreatitis; COMMENT: 3 enlarging cystic masses noted on MRI 07/2016 History of pancreatitis 02/24/2015 DX:History of pancreatitis Hyperlipidemia 06/18/2005 DX:Hyperlipidemia Hypertension 05/01/2006 DX:Hypertension Lung nodule 07/23/2023 DX:Lung nodule Pancreatitis DX:Pancreatitis Type 2 diabetes mellitus with diabetic neuropathy (CMS/HCC) 06/17/2020 DX:Type 2 diabetes mellitus with diabetic neuropathy (HCC) Type 2 diabetes mellitus with microalbuminuria (CMS/HCC) 04/17/2021 DX:Type 2 diabetes mellitus with microalbuminuria (HCC) Weight loss DX:Weight loss Weight loss, abnormal DX:Weight loss, abnormal SOCIAL HISTORY: Social History Tobacco Use Smoking status: Never Smokeless tobacco: Never Substance Use Topics Alcohol use: Yes FAMILY HISTORY: Family History Problem Relation Name Age of Onset Diabetes Mother emphysema, Copd, smoker, normal yczhq-1-gmagpzjqdff level Stroke Maternal Grandfather Other (Other: TB) Paternal Grandmother Hypertension Father HTN, 3 adenomatous transverse colon polyps Colon polyps Father Glaucoma Maternal Grandmother CRF-dialysis Asthma Brother Hypertension Brother Family Status Relation Name Status Mother at age 60 MGF PGM Father Alive MGM (Not Specified) Brother Alive Brother Alive PGF at age 67 No partnership data on file Current Outpatient Medications: allopurinoL (ZYLOPRIM) 300 mg tablet, Take 1 tablet (300 mg total) by mouth 1 (one) time each day.,Disp: , Rfl: cyanocobalamin (VITAMIN B-12) 500 mcg tablet, Take 1 tablet (500 mcg total) by mouth 1 (one) time each day. for 30 days, Disp: , Rfl: gabapentin (NEURONTIN) 300 mg capsule, Take 1 cap before sleep, Disp: , Rfl: metFORMIN XR (GLUCOPHAGE-XR) 500 mg 24 hr tablet, TAKE 1 TABLET BY MOUTH TWICE A DAY WITH FOOD, Disp: 180 tablet, Rfl: 1 mirtazapine (REMERON) 7.5 mg tablet, Take 1 Tablet by mouth at bedtime., Disp: , Rfl: multivitamin with minerals (MULTIPLE VITAMIN-MINERALS ORAL), Take 1 capsule by mouth 1 (one) time each day., Disp: , Rfl: pancrelipase, Eag-Fafm-Truz, (Creon) 24,000-76,000 -120,000 unit capsule, Take 1 Capsule by mouth 3times daily., Disp: , Rfl: pantoprazole (PROTONIX) 40 mg EC tablet, TAKE 1 TAB BY MOUTH DAILY IN THE AM ON EMPTY STOMACH, WAIT30 MIN & THEN EAT TO ACTIVATE MEDICATION, Disp: , Rfl: Allergies Allergen Reactions Other Seasonal Allergies PHYSICAL EXAM: Visit Vitals BP 137/79 (BP Location: Left arm, Patient Position: Sitting, BP Cuff Size: Adult) Pulse 93 Temp 36.8 ??C (98.2 ??F) (Temporal) Wt 72.6 kg (160 lb) SpO2 99% BMI 22.96 kg/m?? Smoking Status Never BSA 1.9 m?? ECOG 0 APPEARANCE: Alert and oriented in no acute distress EYES: nonicteric sclera pink conjunctiva ORAL CAVITY: No mucositis or thrush NECK: Neck supple, no significant adenopathy, HEART: normal S1 and S2 LUNG: clear to auscultation bilaterally LYMPH NODES: No palpable superficial adenopathy ABDOMEN: Slightly distended, soft, nontender and no gross organomegaly appreciated though there is some fullness in upper quadrant EXTREMITIES: No petechia ecchymosis purpura LABS: WBC 3.3, hemoglobin 12.2 g, hematocrit 36.4%, MCV 104.9 and platelet count 110 IMPRESSION: 1. Anemia, unspecified type 2. Thrombocytopenia (CMS/HCC) Patient is a 59-year-old [place] Citizen man, who has chronic mild pancytopenia, patient also havefatty liver and chronic liver disease, patient workup was unremarkable couple years ago patient total blood cell counts are not significantly different than 2022, I told patient he has mild pancytopenia most likely secondary to chronic liver disease, I did counseling on alcohol as well as recommendthat he should see a finishing range feeder. I told patient I would not recommend bone marrow biopsy or any hematological intervention at this time PLAN: I would recommend strongly that patient should cut down on alcohol consumption as well as patient should be referred to finishing range feeder Marta Mack MD documented in this encounter Plan of Treatment Upcoming Encounters Date Type Department Care Team (Late st Contact Info) Description 10/01/2024 11:30 AM EDT Office Visit Internal Medicine - [address] [phone] Sriram Moreland MD [address] [place] [address] 10/05/2024 1:30 PM EDT Office Visit Internal Medicine - [address] [phone] Ele Lyon NP [address] [place] [address] documented as of this encounter Visit Diagnoses Diagnosis Anemia, unspecified type Thrombocytopenia (CMS/HCC) Unspecified thrombocytopenia documented in this encounter Orders Outpatient Referral Count Last Ordered Date Fir st Ordered Date AMB REFERRAL TO HEMATOLOGY / ONCOLOGY 1 02/2025 documented in this encounter Care Teams Mold Cutting Machine Operator Relationship Specialty Start Date End Date Sriram Moreland MD [address] [place] [id number] PCP - General Internal Medicine 01/18/20 documented as of this encounter
--- OUTSIDE RECORDS SUMMARY | 2024-07-22 16:31 | XMS_ITS | Encounter Summary ---
Author Organization [facility] Address [address] [place] [address] Care Team Providers Care Hydro Generation Manager Name Role Phone Sriram Moreland MD Primary Care Provider [phone] Reason for Visit * Reason Onset Date Comments Call Back 05/25/2024 Encounter Details Date Type Department Care Team (Late st Contact Info) Description 05/25/2024 [facility] [address] [place] [phone] Sriram Moreland MD [address] [place] [phone] Call Back Social History Tobacco Use Types Packs/Day Years [...] as of this encounter Progress Notes * Sriram Moreland MD - 05/26/2024 7:11 PM EST Noted. * Chana Barrera MA - 05/26/2024 10:48 AM EST Spoke with pt and relayed referral denial message. Pt stated he was aware and that he already applied to the Fire department services as suggested by Referral dept. * Giana Mclaughlin MA - 05/26/2024 8:17 AM EST Did anyone call this patient? * Pamella Nye - 05/25/2024 5:03 PM EST Patient returning call to PCP's office. documented in this encounter Plan of Treatment Upcoming Encounters Date Type Department Care Team (Late st Contact Info) Description 10/01/2024 11:30 AM EDT Office Visit Internal Medicine - [facility] [address] [place] [address] Sriram Moreland MD [address] [place] [phone] 10/05/2024 1:30 PM EDT Office Visit Internal Medicine - [facility] [address] [place] [address] Ele Lyon NP [address] [place] [address] documented as of this encounter Visit Diagnoses Not on filedocumented in this encounter Care Teams Hydro Generation Manager Relationship Specialty Start Date End Date Sriram Moreland MD [address] [place] [address] PCP - General Internal Medicine 01/18/20 documented as of this encounter
--- OUTSIDE RECORDS SUMMARY | 2024-07-22 16:31 | XMS_ITS | Encounter Summary ---
Author Organization [facility] Address [address] [place] [address] Care Team Providers Care Carrier Loader Name Role Phone Sriram Moreland MD Primary Care Provider [phone] [phone] Reason for Visit * Reason Comments Rash Encounter Details Date Type Department Care Team (Late st Contact Info) Description 07/06/2024 2:30 PM EST Office Visit Internal Medicine - [address] [phone] Ele Lyon, EM [address] [place] [address] Tinea pedis of both feet (Primary Dx); Tinea corporis; Insomnia, unspecified type Social History Tobacco Use Types Packs/Day Years [...] Sign Reading Time Taken Comments Blood Pressure 107/85 07/06/2024 2:34 PM EST Pulse 100 07/06/2024 2:34 PM EST Temperature - - Respiratory Rate - - Oxygen Saturation - - Inhaled Oxygen Concentration - - Weight 73.1 kg (161 lb 1.6 oz) 07/06/2024 2:34 P M EST Height - - Body Mass Index 23.12 06/12/2024 1:04 PM EST documented in this encounter Ordered Prescriptions Prescription Sig Dispense Quantity Refills Last Filled Start Date End Date ciclopirox (LOPROX) 0.77 % creamIndications:T inea pedis of both feet,Tinea corporis Apply thin layer to affected area BID for 2 weeks then stop. 30 g 07/06/2024 mirtazapine (REMERON) 7.5 mg tabletIndications: Insomnia, unspecified type Take 1 tablet (7.5 mg total) by mouth at bedtime. at bedtime. 90 tablet 3 07/06/2024 documented in this encounter Progress Notes * Ele Soto NP - 07/06/2024 2:30 PM EST CHIEF COMPLAINT: Rash HPI: Mikey Vann Jr. is a 59 y.o. old male with PMH of [place], syncope, lung nodules, rhinitis, insomnia and gout. Patient is here today for a rash on his body. Patient has a rash on bilateral foot. skin area is dry and itchy. Patient also feels tightness on the skin in the area. No drainage, no redness. Feels as if there is swelling. Also has 2 other areas 1 on his back and 1 on his chest. Over the last 2 were much more smaller. ROS: See HPI for pertinent positives Constitutional: no weakness fever/ sweats, or weight change Respiratory: no shortness of breath, cough or wheezing Cardiovascular: no chest pain or palpitations, no orthopnea or edema Skin: See HPI PHYSICAL EXAM: Visit Vitals BP 107/85 (BP Location: Right arm, Patient Position: Sitting, BP Cuff Size: Large adult) Pulse 100 Wt 73.1 kg (161 lb 1.6 oz) BMI 23.12 kg/m?? Smoking Status Never BSA 1.9 m?? APPEARANCE: Alert and in no acute distress HEART: RRR with normal S1 and S2, no murmurs, no gallops LUNG: Clear to auscultation bilaterally. Able to talk in full complete sentences Skin: Rash noted on bilateral feet on the top of the foot. Positive pedal pulses, positive ROM, positive capillary refill less than 3 seconds. No discoloration, no edema. Skin color, texture, turgor normal. The rash is not scaly but is very dry. The rash on the left foot looks like ringworm EXTREMITIES: Extremities warm and well perfused without clubbing, cyanosis, or edema. NEURO: Alert and oriented x 3. Gait steady. PAST MEDICAL HISTORY: Patient Active Problem List Diagnosis Allergic rhinitis Atypical chest pain Fatty liver Gout Hyperlipidemia Lung nodule Pancreatic mass Syncope Type 2 diabetes mellitus with diabetic neuropathy (CMS/HCC) Type 2 diabetes mellitus with microalbuminuria (CMS/HCC) Tinea pedis of both feet Tinea corporis Insomnia ACTIVE MEDICATIONS: Outpatient Medications Marked as Taking for the 07/06/24 encounter (Office Visit) with Ele Soto NP Medication Sig Dispense Refill allopurinoL (ZYLOPRIM) 300 mg tablet Take 1 tablet (300 mg total) by mouth 1 (one) time each day. cyanocobalamin (VITAMIN B-12) 500 mcg tablet Take 1 tablet (500 mcg total) by mouth 1 (one) time each day. for 30 days gabapentin (NEURONTIN) 300 mg capsule Take 1 cap before sleep metFORMIN XR (GLUCOPHAGE-XR) 500 mg 24 hr tablet TAKE 1 TABLET BY MOUTH TWICE A DAY WITH FOOD 180 tablet 1 mirtazapine (REMERON) 7.5 mg tablet Take 1 tablet (7.5 mg total) by mouth at bedtime. at bedtime. 90 tablet 3 multivitamin with minerals (MULTIPLE VITAMIN-MINERALS ORAL) Take 1 capsule by mouth 1 (one) time each day. pancrelipase, Yql-Ndkz-Ovpn, (Creon) 24,000-76,000 -120,000 unit capsule Take 1 Capsule by mouth 3 times daily. pantoprazole (PROTONIX) 40 mg EC tablet TAKE 1 TAB BY MOUTH DAILY IN THE AM ON EMPTY STOMACH, WAIT 30 MIN & THEN EAT TO ACTIVATE MEDICATION [DISCONTINUED] mirtazapine (REMERON) 7.5 mg tablet Take 1 Tablet by mouth at bedtime. ALLERGIES: Allergies Allergen Reactions Other Seasonal Allergies IMPRESSION: 1. Tinea pedis of both feet 2. Tinea corporis 3. Insomnia, unspecified type PLAN: 1. Patient has a rash on the top of both feet, upper chest and back.: Differential diagnosis tinea corporis, tinea pedis of bilateral feet, eczema, psoriasis. Prescribed Loprox, a fungal cream to apply on both feet and to upper chest and back area. 2. Patient requesting refill on on medication for sleep. Refill sent to pharmacy. 3. Follow-up in 3 months with PCP and team. Discussed red flags that would warrant further evaluation. Plan of care reviewed with patient and patient verbalized understanding and is in agreement with plan. Today's documentation was made using voice recognition software.This note may contain grammatical errors secondary to this software. Ele Soto NP on 07/06/2024 documented in this encounter Plan of Treatment Upcoming Encounters Date Type Department Care Team (Late st Contact Info) Description 10/01/2024 11:30 AM EDT Office Visit Internal Medicine - [address] [phone] Sriram Moreland MD [address] [place] [address] 10/05/2024 1:30 PM EDT Office Visit Internal Medicine - [address] [phone] Ele Lyon NP [address] [place] [address] documented as of this encounter Visit Diagnoses Diagnosis Tinea pedis of both feet- Primary Tinea corporis Dermatophytosis of the body Insomnia, unspecified type documented in this encounter Discontinued Medications Medication Sig Discontinue Reason Start Date End Da te mirtazapine (REMERON) 7.5 mg tablet Take 1 Tablet by mouth at bedtime. Reorder 12/05/2023 07/06/2024 documented as of this encounter Care Teams Carrier Loader Relationship Specialty Start Date End Date Sriram Moreland MD [address] [place] [address] PCP - General Internal Medicine 01/18/20 documented as of this encounter
--- OUTSIDE RECORDS SUMMARY | 2024-07-22 16:31 | XMS_ITS | Clinical Summary ---
Author Organization [facility] Address [address] [place] [address] Care Team Providers Care Film Color Tester Name Role Phone Sriram Moreland MD Primary Care Provider [phone] [phone] Medications No known medications Active Problems No known active problems Social History Tobacco Use Types Packs/Day Years Used Date Smoking Tobacco: Never Passive Smoke Exposure: Past Smokeless Tobacco: Never Tobacco Cessation:Counseling Given: Not Answered Alcohol Use Standard Drinks/Week Comments Yes 0 (1 standard drink = 0.6 oz pur e alcohol) Rare Sex and Gender Information Value Date Recorded Sex Assigned at Not on file Gender Identity Not on file Sexual Orientation Not on file Job Start Date Occupation Industry Not on file Not on file Not on file Last Filed Vital Signs Vital Sign Reading Time Taken Comments Blood Pressure 119/81 05/25/2022 8:10 AM EST Pulse 88 05/25/2022 8:10 AM EST Temperature 37.2 ??C (98.9 ??F) 05/25/2022 8:10 AM ES T Respiratory Rate - - Oxygen Saturation 100% 05/25/2022 8:10 AM EST Inhaled Oxygen Concentration - - Weight 62.1 kg (137 lb) 05/25/2022 8:10 AM EST Height 177.8 cm (5' 10 ) 05/25/2022 8:10 AM EST Body Mass Index 19.66 05/25/2022 8:10 AM EST Plan of Treatment Health Maintenance Due Date Last Done Comments Hepatitis B Vaccines (1 of 3 - 3-dose series) 1965 Hepatitis C Screening 1965 COVID-19 Vaccine (#1) 1965 Depression Screening 1977 Preventative Health Evaluation 1983 Colon Cancer Screening (Colonoscopy) 2010 Shingrix-Zoster Vaccine (2 of 2) 10/02/2021 08/07/2021 DTap / Tdap / Td (2 - Td or Tdap) 08/04/2023 08/03/2013, 05/01/2006 Influenza Vaccine (#1) 2024 0, 02/29/2012, 02/21/2011, Additional history exists Pneumococcal Vaccine Aged Out 04/18/2021 No long er eligible based on patient's age to complete this topic RSV Ped < 20 months Aged Out No longe r eligible based on patient's age to complete this topic Care Teams Film Color Tester Relationship Specialty Start Date End Date Sriram Moreland MD [address] [place] [address] PCP - General Internal Medicine 05/15/22
--- OUTSIDE RECORDS SUMMARY | 2024-07-22 16:31 | XMS_ITS | Encounter Summary ---
Author Organization [facility] Address [address] [place] [address] Care Team Providers Care Police Crime Scene Technician Name Role Phone Sriram Moreland MD Primary Care Provider [phone] Encounter Details Date Type Department Care Team (Late Contact Info) Description 06/25/2024 Lab Requisition [facility] - Main Lab [address] [facility] [address] Jose Covarrubias MD [address] [phone] Dysuria Social History Tobacco Use Types Packs/Day Years [...] on file documented as of this encounter Plan of Treatment Upcoming Encounters Date Type Department Care Team (Late Contact Info) Description 10/01/2024 11:30 AM EDT Office Visit Internal Medicine - [address] [phone] Sriram Moreland MD [address] [place] [address] 10/05/2024 1:30 PM EDT Office Visit Internal Medicine - [address] [phone] Ele Lyon, EM [address] [place] [address] documented as of this encounter Procedures Procedure Name Priority Date/Time Associated Diagnosis Comments CHLAMYDIA TRACHOMATIS AND NEISSERIA GONORRHOEAE PCR Routine 06/25/2024 12:00 AM EST Dysuria documented in this encounter Results * Chlamydia trachomatis and Neisseria gonorrhoeae molecular study (06/25/2024 12:00 AM EST) Neisseria gonorrhoeae PCR Negative Negative LAB MOLECULAR DIAGNOSTICS METHOD 06/25/2024 5:36 PM EST [facility] Chlamydia trachomatis PCR Negative Negative LAB MOLECULAR DIAGNOSTICS METHOD 06/25/2024 5:36 PM EST [facility] Urine Urethral structure / Unknown Non-blood Collection / Unknown 06/25/2024 06/25/2024 2:34 PM EST us Jose Covarrubias MD LAB MICROBIOLOGY - GENERAL ORDER LAXMI Final Result [facility] [address] [place] [address], documented in this encounter Visit Diagnoses Diagnosis Dysuria documented in this encounter Care Teams Police Crime Scene Technician Relationship Specialty Start Date End Date Sriram Moreland MD [address] [place] [address] PCP - General Internal Medicine 01/18/20 documented as of this encounter
== END 2024-07-22 14:45 | disposition home or self-care (01) ==
PROVIDERS: PCP Internal Medicine; Visit Provider Nurse Practitioner Family
DX: G62.9 Polyneuropathy, unspecified (principal); D64.9 Anemia, unspecified; E67.2 Megavitamin-B6 syndrome; E51.9 Thiamine deficiency, unspecified; E53.8 Deficiency of other specified B group vitamins
CPT/HCPCS: 99214

== ENCOUNTER → 2024-07-22 13:49 | Outpatient (BNVA) | payer OTHER, SELFPAY | PROVIDERS: PCP Internal Medicine; Visit Provider Nurse Practitioner Family ==

== ENCOUNTER 2024-08-20 13:25 | Outpatient (REF) | payer OTHER, SELFPAY ==
--- NOTE | 2024-08-20 13:28 | EMG_ITS ---
Chief complaint: Feet numbness, history of B12 and B1 deficiency Exam: no atrophy, no foot drop Reason for referral: Evaluate for neuropathy Referred by: Lisa Yoo NP Procedure done: Bilateral lower extremity NCS/EMG Precautions and/or limitations: None The limb temperature was monitored continuously and remained between 32-36 degrees C during the performance of the NCS. Nerve Conduction Studies Anti Sensory Summary Table ?Stim Site NR Onset (ms) Norm Onset (ms) Peak (ms) Norm Peak (ms) O-P Amp (?V) Norm O-P Amp Site1 Site2 Delta-0 (ms) Dist (cm) Lai (m/s) Norm Lai (m/s) Left Sural Anti Sensory (Lat Mall) Calf NR <4.0 >5.0 Calf Lat Mall 14.0 Right Sural Anti Sensory (Lat Mall) Calf NR <4.0 >5.0 Calf Lat Mall 14.0 Motor Summary Table ?Stim Site NR Onset (ms) Norm Onset (ms) O-P Amp (mV) Norm O-P Amp iAmp (mV) Amp (1st) (%) Site1 Site2 Delta-0 (ms) Dist (cm) Lai (m/s) Norm Lai (m/s) Right Peroneal Motor (Ext Dig Brev) Ankle ? 5.9 <4.0 1.0 >2.5 1.2 100.0 Ankle Ext Dig Brev 5.9 0.0 B Fib ? 15.1 0.7 0.8 70.0 B Fib Ankle 9.2 33.0 36 >40 Poplt ? 16.7 0.7 0.8 70.0 Poplt B Fib 1.6 6.5 41 >40 Left Tibial Motor (Abd Zuniga Brev) Ankle ? 4.3 <5 5.4 >2.5 7.1 100.0 Ankle Abd Zuniga Brev 4.3 0.0 Knee ? 15.2 2.7 3.3 50.0 Knee Ankle 10.9 39.0 36 >40 Right Tibial Motor (Abd Zuniga Brev) Ankle ? 3.5 <5 4.2 >2.5 5.7 100.0 Ankle Abd Zuniga Brev 3.5 0.0 Knee ? 14.9 2.5 3.0 59.5 Knee Ankle 11.4 43.5 38 >40 EMG ?Side Muscle Nerve Root Ins Act Fibs Psw Amp Dur Poly Recrt Int Pat Comment Right AbdHallucis MedPlantar S1-2 Incr 1+ 1+ Nml Nml 0 Nml Complete Right AntTibialis Dp Br Peron L4-5 Nml Nml Nml Nml Nml 0 Nml Complete Right PostTibialis Tibial L5, S1 Nml Nml Nml Nml Nml 0 Nml Complete Right MedGastroc Tibial S1-2 Nml Nml Nml Nml Nml 0 Nml Complete Right VastusMed Femoral L2-4 Nml Nml Nml Nml Nml 0 Nml Complete Left AbdHallucis MedPlantar S1-2 Incr 1+ 1+ Nml Nml 0 Nml Complete Left AntTibialis Dp Br Peron L4-5 Nml Nml Nml Nml Nml 0 Nml Complete Left PostTibialis Tibial L5, S1 Nml Nml Nml Nml Nml 0 Nml Complete Left MedGastroc Tibial S1-2 Nml Nml Nml Nml Nml 0 Nml Complete Left VastusMed Femoral L2-4 Nml Nml Nml Nml Nml 0 Nml Complete Paraspinal EMG ?Side Muscle Nerve Root Ins Act Fibs Psw Comment Right Lumbar Upper Rami Nml Nml Nml Right Lumbar Mid Rami Nml Nml Nml Right Lumbar Lower Rami Nml Nml Nml Left Lumbar Upper Rami Nml Nml Nml Left Lumbar Mid Rami Nml Nml Nml Left Lumbar Lower Rami Nml Nml Nml FINDINGS: Right peroneal nerve showed increased distal latency, low amplitude and slow conduction velocity. Bilateral tibial nerves showed normal distal latency, normal amplitude and slow conduction velocity. Bilateral sural nerves showed absent response. Concentric needle EMG was performed in selected muscles of the bilateral lower extremity and lumbar paraspinals. Study revealed signs of electric abnormalities as shown in the table above. Bilateral AH showed increased insertional activity, PSWs and fibrillations. IMPRESSION: 1. This is an abnormal study. 2. There is electrodiagnostic evidence for symmetric distal sensorimotor polyneuropathy, predominantly axonal. 3. There is no electrodiagnostic evidence for lumbosacral plexopathy or lumbar radiculopathy. Thank you for your kind referral. Jennifer Burks MD, JAN Board Certified, [place] Board of Physical Medicine and Rehabilitation (ABPMR) Board Certified, [place] Board of Electrodiagnostic Medicine (ABEM) CODIN [address]448 x 2 [facility]
--- OUTSIDE RECORDS SUMMARY | 2024-08-20 14:39 | XMS_ITS | Encounter Summary ---
Author Organization [facility] Address [address] [place] [address] Care Team Providers Care General Farmworker Name Role Phone Sriram Moreland MD Primary Care Provider [phone] Reason for Visit * Reason Comments Elevated LFTs Encounter Details Date Type Department Care Team (Latest Contact Info) Description 08/17/2024 2:20 PM EDT Office Visit Gastroenterology - [place] [address] [place] [phone] Jan Hoover PA [address] [place] [address] Fatty liver (Primary Dx); Elevated alkaline phosphatase level; Pancreatic insufficiency Social History Tobacco Use Types Packs/Day Years [...] Sign Reading Time Taken Comments Blood Pressure 112/70 08/17/2024 2:32 PM EDT Pulse 85 08/17/2024 2:32 PM EDT Temperature - - Respiratory Rate - - Oxygen Saturation - - Inhaled Oxygen Concentration - - Weight - - Height 177.8 cm (5' 10 ) 08/17/2024 2:32 PM EDT Body Mass Index - - documented in this encounter Patient Instructions * Attachments The following attachments cannot be sent through Care Everywhere. * NAFLD: Nonalcoholic Fatty Liver Disease (Amharic) documented in this encounter Progress Notes * LUCIANO Miguel - 08/17/2024 2:20 PM EDT Patient returns for follow up of fatty liver. It was noted that his alk phos was slight elevated but labs to rule out the isoenymzes show that a percentage is coming from the liver due to a fatty liver and the other portion is coming from his bones. Patient will continue to be monitored for a fattyliver. Has had noted a dilated pancreatic duct but last year had MRI which states that the duct was stabeleand no further work up is needed at this time. Patient will also continue to use the creon as directed. Aware to contact office with any questions or concerns. * LUCIANO Miguel - 08/17/2024 2:20 PM EDT DENTIFIER: Mikey Vann Jr. is a 59 y.o. old male who presents to the gastroenterology department today for re-evaluation of elevated alk phos, fatty liver and pancreatic insufficiency. HPI: 59-year-old gentleman returns for follow up of fatty liver. It was noted that his alk phos on recent labs was slight elevated but labs to rule out the isoenymzes show that a percentage is coming from the liver due to a fatty liver and the other portion is coming from his bones. It is aware that the alk phos being elevated slightly is due to a fatty liver and we will continue to monitor patient Has had noted a dilated pancreatic duct but last year had MRI which states that the duct was stableand no further work up is needed at this time. Patient does have pancreatic insufficiency and patient will also continue to use the creon as directed. Aware to contact office with any questions or concerns. ROS: GENERAL: No malaise, significant weight loss or fever HEENT: No changes in hearing or vision, nose bleeds or swallowing problems NECK: No lumps, goiter, pain or significant neck swelling RESPIRATORY: No cough, wheezing or shortness of breath CARDIOVASCULAR: No chest pain, leg swelling or palpitations GI: Positive for fatty liver, elevated alk phos, pancreatic insufficiency, history of slightly dilated pancreatic duct that stable MUSCULOSKELETAL: No joint pain or swelling, back pain, or muscle pain. SKIN: No lesions, rash or itching The remainder of the review of systems is reviewed and negative. PAST MEDICAL HISTORY: Patient Active Problem List Diagnosis Date Noted Tinea pedis of both feet 07/06/2024 Tinea corporis 07/06/2024 Insomnia 07/06/2024 Lung nodule 07/23/2023 Syncope 08/20/2022 Atypical chest pain 08/14/2022 Type 2 diabetes mellitus with microalbuminuria ([facility]) 04/17/2021 Type 2 diabetes mellitus with diabetic neuropathy ([facility]) 06/17/2020 Pancreatic mass 12/14/2016 Fatty liver 08/04/2013 Allergic rhinitis 05/01/2006 Gout 05/01/2006 Hyperlipidemia 06/18/2005 SOCIAL HISTORY: Social History Tobacco Use Smoking status: Never Smokeless tobacco: Never Substance Use Topics Alcohol use: Yes FAMILY HISTORY: Family History Problem Relation Name Age of Onset Diabetes Mother emphysema, Copd, smoker, normal [id number] level Stroke Maternal Grandfather Other (Other: TB) Paternal Grandmother Hypertension Father HTN, 3 adenomatous transverse colon polyps Colon polyps Father Glaucoma Maternal Grandmother CRF-dialysis Asthma Brother Hypertension Brother ACTIVE MEDICATIONS: Outpatient Medications Marked as Taking for the 08/17/24 encounter (Office Visit) with LUCIANO Miguel Medication Sig Dispense Refill allopurinoL (ZYLOPRIM) 300 mg tablet Take 1 tablet (300 mg total) by mouth 1 (one) time each day. ciclopirox (LOPROX) 0.77 % cream Apply thin layer to affected area BID for 2 weeks then stop. 30 g 0 cyanocobalamin (VITAMIN B-12) 500 mcg tablet Take 1 tablet (500 mcg total) by mouth 1 (one) time each day. for 30 days fluconazole (DIFLUCAN) 150 mg tablet Take 2 tablets by mouth at the same time once weekly until resolution, up to 4 weeks. 8 tablet 0 gabapentin (NEURONTIN) 300 mg capsule Take 1 cap before sleep metFORMIN XR (GLUCOPHAGE-XR) 500 mg 24 hr tablet TAKE 1 TABLET BY MOUTH TWICE A DAY WITH FOOD 180 tablet 1 mirtazapine (REMERON) 7.5 mg tablet Take 1 tablet (7.5 mg total) by mouth at bedtime. at bedtime. 90 tablet 3 multivitamin with minerals (Multiple Vitamin-Minerals) tablet Take 1 tablet by mouth 1 (one) time each day. 90 tablet 0 pancrelipase, Fku-Cssa-Talk, (Creon) 24,000-76,000 -120,000 unit capsule Take 1 Capsule by mouth 3 times daily. pantoprazole (PROTONIX) 40 mg EC tablet TAKE 1 TAB BY MOUTH DAILY IN THE AM ON EMPTY STOMACH, WAIT 30 MIN & THEN EAT TO ACTIVATE MEDICATION ALLERGIES: @ALL@ PHYSICAL EXAM: Visit Vitals BP 112/70 Pulse 85 Ht 1.778 m (70 ) BMI 23.12 kg/m?? Smoking Status Never BSA 1.9 m?? APPEARANCE: Alert and in no acute distress EYES: PERRLA, conjunctiva and sclera normal. MOUTH/THROAT: no erythema or exudates NECK: Neck supple, no adenopathy HEART: RRR with normal S1 and S2, no murmurs appreciated LUNG: clear to auscultation LYMPH NODES: grossly normal ABDOMEN: Soft, nontender, normal active bowel sounds throughout, no organomegaly RECTAL: Exam deferred. EXTREMITIES: Extremities warm and well perfused SKIN: Skin color, texture, turgor normal. LABS: Lab Results Component Value Date WBC 3.4 (L) 07/30/2024 WBC 3.3 (L) 04/07/2024 HGB 12.8 (L) 07/30/2024 HGB 12.2 (L) 04/07/2024 HCT 38.9 (L) 07/30/2024 HCT 36.4 (L) 04/07/2024 MCV 104.3 (H) 07/30/2024 MCV 104.9 (H) 04/07/2024 PLT 140 07/30/2024 PLT 110 (L) 04/07/2024 NA 137 07/30/2024 NA 136 04/07/2024 K 4.6 07/30/2024 K 4.3 04/07/2024 CL 101 07/30/2024 CL 101 04/07/2024 CO2 24 07/30/2024 CO2 26 04/07/2024 GLUCOSE 161 (H) 07/30/2024 GLUCOSE 112 (H) 04/07/2024 BUN 6 07/30/2024 BUN 4 (L) 04/07/2024 CREATININE 0.85 07/30/2024 CREATININE 0.77 04/07/2024 CALCIUM 9.0 07/30/2024 CALCIUM 8.9 04/07/2024 PROT 6.6 07/30/2024 PROT 6.6 04/07/2024 ALBUMIN 2.9 (L) 07/30/2024 ALBUMIN 3.1 (L) 04/07/2024 BILITOT 0.9 07/30/2024 BILITOT 0.9 07/30/2024 BILITOT 1.1 04/07/2024 AST 39 07/30/2024 AST 92 (H) 04/07/2024 ALT 27 07/30/2024 ALT 39 04/07/2024 MG 1.6 (L) 07/30/2024 ALKPHOS 108 08/06/2024 ALKPHOS 6 08/06/2024 ALKPHOS TNP 08/06/2024 EGFR 100 07/30/2024 EGFR 104 04/07/2024 Lab Results Component Value Date SEDRATE 10 07/30/2024 IRON 140 04/07/2024 IMAGING: CT Chest wo Contrast Narrative: CT CHEST WO CONTRAST TECHNIQUE: Multidetector CT of the chest was performed without intravenous contrast. COMPARISON: Chest CT on July 09, 2023. MRI of the abdomen on August 02, 2023 HISTORY: follo wup on lung nodule FINDINGS: Lungs: Central airways are patent. No focal consolidation. Tiny 0.2 cm pulmonary nodule in the anteromedial aspect of the left upper lobe is unchanged (2:81). Previously seen right middle lobe nodulemeasuring up to 0.5 cm appears to represent a platelike thickening of the right minor fissure (2:155, sagittal 80,342:151). Nodularity and focal platelike thickening along the left major fissure are unchanged: 2:143, 2:148, 2:155. Pleura: No pleural effusion or pneumothorax. Mediastinum: Heart is normal in size. Severe coronary artery calcifications. No pericardial effusion. Unchanged caliber of the ascending thoracic aorta measuring up to 3.3 cm on the coronal plane (80,341:44). Lymph Nodes: No lymphadenopathy. Upper Abdomen: Hepatic steatosis. Vascular calcifications. Chronic findings of the pancreas were better seen on the previous MR study. Chest Wall: No concerning findings. Bones: No suspicious bone lesions. Impression: Platelike nodularity along the bilateral fissures as described above, stable from June 2023. -------- FINAL REPORT -------- Dictated By: Jazmyne Kumar Dictated Date: 04/27/2024 09:50 ET Assigned Physician: Jazmyne Kumar Reviewed and Electronically Signed By: Jazmyne Kumar Signed Date: 04/27/2024 10:17 ET Workstation ID: [id number] Transcribed By: Self Edit Transcribed Date: 04/27/2024 09:[address] Results for orders placed during the hospital encounter of 04/27/24 CT Chest wo Contrast Narrative CT CHEST WO CONTRAST TECHNIQUE: Multidetector CT of the chest was performed without intravenous contrast. COMPARISON: Chest CT on July 09, 2023. MRI of the abdomen on August 02, 2023 HISTORY: follo wup on lung nodule FINDINGS: Lungs: Central airways are patent. No focal consolidation. Tiny 0.2 cm pulmonary nodule in the anteromedial aspect of the left upper lobe is unchanged (2:81). Previously seen right middle lobe nodulemeasuring up to 0.5 cm appears to represent a platelike thickening of the right minor fissure (2:155, sagittal 80,342:151). Nodularity and focal platelike thickening along the left major fissure are unchanged: 2:143, 2:148, 2:155. Pleura: No pleural effusion or pneumothorax. Mediastinum: Heart is normal in size. Severe coronary artery calcifications. No pericardial effusion. Unchanged caliber of the ascending thoracic aorta measuring up to 3.3 cm on the coronal plane (80,341:44). Lymph Nodes: No lymphadenopathy. Upper Abdomen: Hepatic steatosis. Vascular calcifications. Chronic findings of the pancreas were better seen on the previous MR study. Chest Wall: No concerning findings. Bones: No suspicious bone lesions. Impression Platelike nodularity along the bilateral fissures as described above, stable from June 2023. -------- FINAL REPORT -------- Dictated By: Jazmyne Kumar Dictated Date: 04/27/2024 09:50 ET Assigned Physician: Jazmyne Kumar Reviewed and Electronically Signed By: Jazmyne Kumar Signed Date: 04/27/2024 10:17 ET Workstation ID: [id number] Transcribed By: Self Edit Transcribed Date: 04/27/2024 09:50 ET US Results for orders placed in visit on 02/12/24 US SOFT TISSUE ABDOMEN/BACK, LIMITED ABD Narrative EXAM: Abdomen ultrasound limited. HISTORY: Fatty liver. COMPARISON: 07/09/2023, MRI abdomen 08/02/2023, 02/18/2020, and 03/11/2018 FINDINGS: Liver: Normal in size measuring 16.3 cm in craniocaudad extent. Parenchyma is echogenic as before. No mass detected. Gallbladder/Biliary Tree: Nonmobile nonshadowing echogenic structure again noted along the gallbladder wall toward the fundus which measures 0.4 x 0.4 x 0.4 cm, similar to the prior exam. No gallbladder wall thickening or pericholecystic fluid. No intra or extrahepatic biliary ductal dilatation. The common bile duct measures 0.5 cm. Pancreas: Largely obscured by bowel gas. Partially visualized pancreatic ductal dilatation measuring 0.7 cm, similar to previous imaging. Right kidney: Normal in size measuring 10.0 cm in craniocaudad extent. No hydronephrosis, focal lesions, or shadowing stones. Vasculature: Hepatopedal flow in the main portal vein. Impression IMPRESSION: Echogenic hepatic parenchyma again noted which corresponds with steatosis on the recent MRI. Stable small gallbladder polyp. POS [id number] IMPRESSION: 1. Fatty liver 2. Elevated alkaline phosphatase level 3. Pancreatic insufficiency PLAN: 1. Fatty liver, elevated alk phos, pancreatic insufficiency Patient has been followed for pancreatic insufficiency and is presently taking Creon as directed and is having no issues. Patient does have a history of dilated pancreatic duct but it has been stable over the last 2 studies that were performed and no further workup is needed at this time. Patient is also noted to have fatty liver and this and it of itself can contribute to the slightly elevated alk phos. He is also aware that part of the elevation is also due to his bones also contributing to the alk phos percentage. Is aware that no further workup is needed outside of the standard labs and ultrasound that are performed for a fatty liver. Patient is aware to contact office with any questions or concerns Total time of today's encounter is 33 minutes in preparing to see the patient, reviewing labs, diagnostic studies as well as other provider notes, documenting in charting, creating an HPI, performinga medically appropriate exam, counseling patient at length in regards to fatty liver, elevated alk phos and pancreatic insufficiency as well as prescribing medication. There was documentation in EMR after visit. None of which time was spent performing separately billable procedures or ancillary services. Much appreciation for allowing us to participate in patient's care No orders of the defined types were placed in this encounter. ADDITIONAL ORDERS: None LUCIANO Miguel documented in this encounter Plan of Treatment Upcoming Encounters Date Type Department Care Team (Late st Contact Info) Description 09/04/2024 8:15 AM EDT [facility] [address] [place] [address] 10/01/2024 11:30 AM EDT Office Visit Internal Medicine - [address] [phone] Sriram Moreland MD [address] [place] [address] 10/05/2024 1:30 PM EDT Office Visit Internal Medicine - [address] [phone] Ele Lyon NP [address] [place] [address] documented as of this encounter Visit Diagnoses Diagnosis Fatty liver- Primary Other chronic nonalcoholic liver disease Elevated alkaline phosphatase level Pancreatic insufficiency Other specified disease of pancreas documented in this encounter Care Teams General Farmworker Relationship Specialty Start Date End Date Sriram Moreland MD [address] [place] [phone] PCP - General Internal Medicine 01/18/20 documented as of this encounter
--- OUTSIDE RECORDS SUMMARY | 2024-08-20 14:39 | XMS_ITS | Encounter Summary ---
Author Organization [facility] Address [address] [place] [address] Care Team Providers Care Pad Assembler Name Role Phone Sriram Moreland MD Primary Care Provider [phone] Encounter Details Date Type Department Care Team (Late Contact Info) Description 06/25/2024 Lab Requisition [facility] - Main Lab [address] Replaced By [facility] [place] [phone] Jose Covarrubias MD [phone] [phone] Dysuria Social History Tobacco Use [...] Department Care Team (Late Contact Info) Description 09/04/2024 8:15 AM EDT Appointment Ultrasound - [place] [address] [place], [place] [phone] 10/01/2024 11:30 AM EDT Office Visit Internal Medicine - [place] [address] [place], [place] [phone] Sriram Moreland MD [address] [place] [id number] 10/05/2024 1:30 PM EDT Office Visit Internal Medicine - [address] [phone] Ele Lyon NP [address] [place] [address] documented as of this encounter Procedures Procedure Name Priority Date/Time Associated Diagnosis Comments CHLAMYDIA TRACHOMATIS AND NEISSERIA GONORRHOEAE PCR Routine 06/25/2024 12:00 AM EST Dysuria documented in this encounter Results * Chlamydia trachomatis and Neisseria gonorrhoeae molecular study (06/25/2024 12:00 AM EST) Neisseria gonorrhoeae PCR Negative Negative LAB MOLECULAR DIAGNOSTICS METHOD 06/25/2024 5:36 PM EST [facility] Chlamydia trachomatis PCR Negative Negative LAB MOLECULAR DIAGNOSTICS METHOD 06/25/2024 5:36 PM EST [facility] Urine Urethral structure / Unknown Non-blood Collection / Unknown 06/25/2024 06/25/2024 2:34 PM EST us Jose Covarrubias MD LAB MICROBIOLOGY - GENERAL ORDER LAXMI Final Result [facility] [address] [place] [address], documented in this encounter Visit Diagnoses Diagnosis Dysuria documented in this encounter Care Teams Pad Assembler Relationship Specialty Start Date End Date Sriram Moreland MD [address] [place] [id number] PCP - General Internal Medicine 01/18/20 documented as of this encounter
--- OUTSIDE RECORDS SUMMARY | 2024-08-20 14:40 | XMS_ITS | Clinical Summary ---
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 4 Active pantoprazole (PROTONIX) 40 mg EC tablet TAKE 1 TAB BY MOUTH DAILY IN THE AM ON EMPTY STOMACH, WAIT 30 MIN & THEN EAT TO ACTIVATE MEDICATION 4 Active pancrelipase, Eep-Zbet-Npur, (Creon) 24,000-76,000 -120,000 unit capsule Take 1 [...] to 4 weeks. 8 tablet 5 Active multivitamin with minerals (Multiple Vitamin-Mineral s) tablet Take 1 tablet by mouth 1 (one) time each day. 90 tablet 5 Active gabapentin (NEURONTIN) 300 mg capsule Take 1 cap before sleep 90 capsule 5 Active gabapentin (NEURONTIN) 300 mg capsule Take 1 cap before sleep 4 08/20/19 25 Discontin ued(Reord er) multivitamin with minerals (MULTIPLE VITAMIN-MINERAL S ORAL) Take 1 capsule by mouth 1 (one) time each day. 07/31/19 25 Discontin ued(Reord er) Active Problems Problem [...] Encounters Date Type Department Care Team Description 08/17/2024 2:20 PM EDT Office Visit Gastroenterology [facility] [address] [place] [address] Jan Hoover PA Fatty liver (Primary Dx); Elevated alkaline phosphatase level; Pancreatic insufficiency 08/11/[address] [facility] 175 [facility] 175 [facility] [address] [place] [address] Jan Hoover PA 07/11/2024 9:45 AM EST Office Visit Walk-In Clinic [facility] [address] [place] [phone] Jose Ocasio PA Tinea versicolor (Primary Dx) 07/10/2024 Telephone Internal Medicine - [address] [phone] Sriram Moreland MD Rash 07/06/2024 2:30 PM EST Office Visit Internal Medicine [address] [phone] Ele Lyon, EM Tinea pedis of both feet (Primary Dx); Tinea corporis; Insomnia, unspecified type 06/29/2024 1:45 PM EST Office Visit [facility] Hematology Oncology [address] [place] [phone] Marta Mack MD Anemia, unspecified type; Thrombocytopenia ([facility]/HCC) 06/25/2024 Lab Requisition [facility] - Main Lab 299 [facility] [place] [address] Jose Covarrubias MD Dysuria 06/12/2024 1:00 PM EST Office Visit Gastroenterology [facility] 175 [facility] [address] [phone] Jan Hoover PA Fatty liver (Primary Dx); Elevated LFTs; Pancreatic insufficiency; Diabetes 1.5, managed as type 2 (CMS/HCC) 05/25/2024 Telephone Internal Medicine [address] [phone] Sriram Moreland MD Call Back from Last 3 Months Immunizations Name Administration [...] Surgery Date Site/Laterality Comments VASECTOMY 2002 PROCEDURE: [place] VASECTOMY UNI/BI SPX W/POSTOP SEMEN EXAMS COLONOSCOPY 03/12/2014 PROCEDURE: HISTORICAL COLONOSCOPY; COMMENT: Urgent procedure as inpt [place] [facility]; sub-optimal prep; not an adequate screening exam. COLONOSCOPY 03/21/2010 PROCEDURE: HISTORICAL COLONOSCOPY; COMMENT: Up to cecum, good preparation, 2 rectal polyps removed: hyperplastic UPPER GASTROINTESTINAL ENDOSCOPY 03/09/2014 PROCEDURE: TN UPPER GI ENDOSCOPY PERFORMED; COMMENT: Rickie; normal. [...] Diabetes Mother emphysema, Copd , smoker, normal [id number] level Other: TB Paternal Grandmother Relation Name [...] Pulse 85 08/17/2024 2:32 PM EDT Temperature 36.4 ??C (97.6 ??F) 07/11/2024 9:47 AM ES T Respiratory Rate - - Oxygen Saturation 99% 07/11/2024 9:47 AM EST Inhaled Oxygen Concentration - - Weight 73.1 kg (161 lb 1.6 oz) 07/06/2024 2:34 P M EST Height 177.8 cm (5' 10 ) 08/17/2024 2:32 PM EDT Body Mass Index 23.12 06/12/2024 1:04 PM EST Plan of Treatment Upcoming Encounters Date Type Department Care Team (Late st Contact Info) Description 09/04/2024 8:15 AM EDT Appointment Ultrasound - [facility] [address] [place] [phone] 10/01/2024 11:30 AM EDT Office Visit Internal Medicine - [facility] [address] [place], [place] [phone] Sriram Moreland MD [address] [place] [phone] 10/05/2024 1:30 PM EDT Office Visit Internal Medicine - [address] [phone] Ele Lyon, EM [address] [place] [phone] Health Maintenance Due Date Last Done Comments [...] Vaccine ( season) 2024 06/23/2021, 08/25/2020, 07/29/2020 Diabetes: Annual Foot Exam 04/02/2024 04/02/2023 Diabetes: Annual Urine Albumin-Creatinine Ratio (uACR) 12/17/2024 12/18/2023 Influenza Vaccine (Season Ended) 2025 08/06/2019, 02/29/2012, 02/21/2011, Additional history exists Diabetes: Blood Sugar Control Test (HGBA1C) 02/06/2025 08/06/2024, 04/07/2024, 12/05/2023, Additional history exists Diabetes: Annual GFR (Glomerular Filtration Rate) 07/30/2025 07/30/2024, 04/07/2024, 12/05/2023, Additional history exists Cholesterol Screening (Lipid Panel) 12/04/2028 12/05/2023, 07/01/2023 Colorectal Cancer Screening: Colonoscopy 08/04/2031 08/03/2021 DTaP,Tdap,and Td Vaccines (4 - Td or Tdap) 12/04/2033 12/05/2023, 08/03/2013, 05/01/2006 RSV Immunization Adult Patients (1 - 1-dose 75+ series) 2040 MMR Vaccines Aged Out 04/25/2012 No longer eligi ble based on patient's age to complete this topic Zoster Vaccines Completed 08/07/2021, 06/22/2021 HIV Screening Completed 05/03/2022 Hepatitis C Screening Completed 08/06/2024, 023 HIB Vaccines Aged Out No longer eligi [...] Procedure Name Priority Date/Time Associated Diagnosis Comments VITAMIN B5 Routine 08/06/2024 10:33 AM EDT Hyposmolality syndrome Anemia, iron deficiency Polyneuropathy Other specified health status HEPATITIS PANEL, ACUTE WITH REFLEX TO CONFIRMATION Routine 08/06/2024 10:33 AM EDT Elevated LFTs HEMOGLOBIN A1C Routine 08/06/2024 10:33 AM EDT Elevated blood sugar ALKALINE PHOSPHATASE, ISOENZYMES Routine 08/06/2024 10:33 AM EDT Elevated alkaline phosphatase level BILIRUBIN, DIRECT Routine 08/06/2024 10: 33 AM EDT Elevated bilirubin BILIRUBIN DUPLICATE PROCEDURE TO ORDER Routine 07/30/2024 10:04 AM EDT Elevated LFTs CBC WITH AUTO DIFFERENTIAL Routine 07/30/2024 10:04 AM EDT Hypo-osmolality and hyponatremia Anemia, unspecified Polyneuropathy SEDIMENTATION RATE Routine 07/30/2024 10 :04 AM EDT Hypo-osmolality and hyponatremia Anemia, unspecified Polyneuropathy VITAMIN B12 AND FOLATE Routine 10:04 AM EDT Hypo-osmolality and hyponatremia Anemia, unspecified Polyneuropathy MAGNESIUM Routine 07/30/2024 10:04 AM EDT Hypo-osmolality and hyponatremia Anemia, unspecified Polyneuropathy VITAMIN D 25 HYDROXY Routine 07/30/2024 10:04 AM EDT Hypo-osmolality and hyponatremia Anemia, unspecified Polyneuropathy HOMOCYSTEINE, SERUM Routine 07/30/2024 1 0:04 AM EDT Hypo-osmolality and hyponatremia Anemia, unspecified Polyneuropathy METHYLMALONIC ACID, SERUM Routine 07/30/2024 10:04 AM EDT Hypo-osmolality and hyponatremia Anemia, unspecified Polyneuropathy VITAMIN B1 Routine 07/30/2024 10:04 AM EDT Hypo-osmolality and hyponatremia Anemia, unspecified Polyneuropathy CBC AND DIFFERENTIAL Routine 07/30/2024 10:04 AM EDT Hypo-osmolality and hyponatremia Anemia, unspecified Polyneuropathy THYROID STIMULATING HORMONE WITH REFLEX TO FREE T4 AND FREE T3 Routine 07/30/2024 10:04 AM EDT Hypo-osmolality and hyponatremia Anemia, unspecified Polyneuropathy VITAMIN B3 Routine 07/30/2024 10:04 AM EDT Hypo-osmolality and hyponatremia Anemia, unspecified Polyneuropathy VITAMIN B6 Routine 07/30/2024 10:04 AM EDT Hypo-osmolality and hyponatremia Anemia, unspecified Polyneuropathy FOLATE Routine 07/30/2024 10:04 AM EDT Hypo-osmolality and hyponatremia Anemia, unspecified Polyneuropathy COMPREHENSIVE METABOLIC PANEL Routine 07/30/2024 10:04 AM EDT Hypo-osmolality and hyponatremia Anemia, unspecified Polyneuropathy C REACTIVE PROTEIN, HIGH SENSITIVITY Routine 07/30/2024 10:04 AM EDT Hypo-osmolality and hyponatremia Anemia, unspecified Polyneuropathy CHLAMYDIA TRACHOMATIS AND NEISSERIA GONORRHOEAE PCR Routine 06/25/2024 12:00 AM EST Dysuria URINE ALBUMIN CREATININE RATIO Routine 12/18/2023 LIPID PANEL Routine 12/05/2023 DIABETES FOOT EXAM Routine 04/02/2023 HIV SCREENING Routine 05/03/2022 COLONOSCOPY Routine 08/03/2021 from Last 3 Months or Most Recently Relevant to Health Maintenance Results * Hepatitis panel, acute with reflex to confirmation (08/06/2024 10:33 AM EDT) Hepatitis B Surface Ag Negative Negative LAB CHEMISTRY METHOD 08/06/2024 12:54 PM EDT [facility] Hepatitis A Antibody IgM Negative Negative LAB CHEMISTRY METHOD 08/06/2024 12:54 PM EDT [facility] Hep B Core IgM Negative Negative LAB CHEMISTRY METHOD 08/06/2024 12:54 PM EDT [facility] Hepatitis C Antibody Negative Negative LAB CHEMISTRY METHOD 08/06/2024 12:54 PM EDT [facility] Blood Venous blood specimen / Unknown Venipuncture / Unknown 08/06/2024 10:33 AM EDT 08/06/2024 11:05 AM EDT Sriram Moreland MD LAB BLOOD ORDERABLES Cathleen l Result [facility] [address] [place] [address], * Vitamin B5 (08/06/2024 10:33 AM EDT) Vitamin B5 (Panththenic Acid) 197 <275 ng/mL 08/11/2024 1:56 PM EDT [facility] Comment: This test was developed and its analytical performance characteristics have been determined by [employer] [place]. It has not been cleared or approved by the FDA. This assay has been validated pursuant to the CLIA regulations and is used for clinical purposes. Test Performed by [facility], [employer], [address] [place] [address] Mik Santiago M.D., Ph.D., Director of Laboratories , CLIA [id number] Blood Venous blood specimen / Unknown Venipuncture / Unknown 08/06/2024 10:33 AM EDT 08/06/2024 11:05 AM EDT Lisa Yoo [facility] BLOOD ORDERABLES Cathleen l Result [facility] [address] [place] [address] * Alkaline phosphatase, isoenzymes (08/06/2024 10:33 AM EDT) Alkaline Phosphatase 108 35 - 144 U/L 08/13/2024 4:39 PM EDT [facility] Comment: Test Performed at: [facility] [address] [place] [address] ??[phone] ? I Theresa ALCANTARA, PhD, JAN Alk Phos Isoenzyme Intestine 6 1 - 24 % 08/13/2024 4:39 PM EDT [facility] Alk Phos Isoenzyme Bone 34 28 - 66 % 08/13/2024 4:39 PM EDT [facility] Alk Phos Isoenzyme Liver 60 25 - 69 % 08/13/2024 4:39 PM EDT [facility] Comment: Increased intestinal alkaline phosphatase can be seen in blood group O and B secretors and after fatty meals. Alk Phos Isoenzyme Placental 0 0 % 08/13/2024 4:39 PM EDT [facility] Comment: Test Performed at: [facility] [address] ??[phone] ? I Theresa ALCANTARA, PhD, JAN Alk Phos Isoenzyme Macrohepatic TNP 08/13/2024 4:39 PM EDT [facility] Alkaline Phosphatase Isoenzymes Interpretation TNP 08/13/2024 4:39 PM EDT [facility] Blood Venous blood specimen / Unknown Venipuncture / Unknown 08/06/2024 10:33 AM EDT 08/06/2024 11:07 AM EDT Sriram Moreland MD LAB BLOOD ORDERABLES Cathleen l Result [facility] [address] [place] [address] * Hemoglobin A1c (08/06/2024 10:33 AM EDT) Hemoglobin A1C 6.1 <6.5 % LAB CHEMISTRY METHOD 08/06/2024 1:56 PM EDT [facility] Mean Bld Glu Estim. 128 mg/dL LAB CHEMISTRY METHOD 08/06/2024 1:56 PM EDT [facility] Blood Venous blood specimen / Unknown Venipuncture / Unknown 08/06/2024 10:33 AM EDT 08/06/2024 11:06 AM EDT Sriram Moreland MD LAB BLOOD ORDERABLES Cathleen l Result [facility] [address] [place] [address], [place] [phone] * (ABNORMAL) Bilirubin, direct (08/06/2024 10:33 AM EDT) Bilirubin, Direct 0.6(H) 0.0 - 0.3 mg/dL LAB CHEMISTRY METHOD 08/06/2024 11:56 AM EDT [facility] Blood Venous blood specimen / Unknown Venipuncture / Unknown 08/06/2024 10:33 AM EDT 08/06/2024 11:05 AM EDT Sriram Moreland MD LAB BLOOD ORDERABLES Cathleen l Result Performing Organization Address City/[facility]/ZIP Co de Phone Number [facility] [address] [place] [address], [place] [phone] * (ABNORMAL) Bilirubin duplicate procedure to order (07/30/2024 10:04 AM EDT) Total Bilirubin 0.9 0.0 - 1.4 mg/dL LAB CHEMISTRY METHOD 07/30/2024 3:46 PM EDT [facility] Bilirubin, Direct 0.5(H) 0.0 - 0.3 mg/dL LAB CHEMISTRY METHOD 07/30/2024 3:46 PM EDT [facility] Bilirubin, Indirect 0.4 0.0 - 1.1 mg/dL LAB CHEMISTRY METHOD 07/30/2024 3:46 PM EDT [facility] Blood Venous blood specimen / Unknown Venipuncture / Unknown 07/30/2024 10:04 AM EDT 07/30/2024 10:04 AM EDT us Sriram Moreland MD LAB BLOOD ORDERABLES Cathleen l Result [facility] [address] [place] [address], [place] [phone] * Thyroid stimulating hormone with reflex to free t4 and free t3 (07/30/2024 10:04 AM EDT) [facility] TSH 2.18 0.40 - 4.00 mcIU/mL LAB CHEMISTRY METHOD 07/30/2024 3:23 PM EDT [facility] Blood Venous blood specimen / Unknown Venipuncture / Unknown 07/30/2024 10:04 AM EDT 07/30/2024 10:04 AM EDT Lisa [facility] LAB BLOOD ORDERABLES Cathleen l Result Performing Organization Address City/[facility]/ZIP Co de Phone Number [facility] [address] [place] [address], [place] [phone] * (ABNORMAL) Vitamin B12 and folate (07/30/2024 10:04 AM EDT) [facility] Vitamin B-12 934(H) 250 - 900 pcg/mL LAB CHEMISTRY METHOD 07/30/2024 3:46 PM EDT [facility] Folate >20.0(H) 2.8 - 17.0 ng/ml LAB CHEMISTRY METHOD 07/30/2024 3:46 PM EDT [facility] Blood Venous blood specimen / Unknown Venipuncture / Unknown 07/30/2024 10:04 AM EDT 07/30/2024 10:04 AM EDT Lisa [facility] LAB BLOOD ORDERABLES Cathleen l Result [facility] [address] [place] [address], [place] [phone] * (ABNORMAL) CBC auto differential (07/30/2024 10:04 AM EDT) [facility] WBC 3.4(L) 4.8 - 10.8 K/mcL LAB HEMETOLOGY METHOD 07/30/2024 11:33 AM EDT [facility] RBC 3.70(L) 4.50 - 5.50 M/mcL LAB HEMETOLOGY METHOD 07/30/2024 11:33 AM [facility] Hemoglobin 12.8(L) 13.5 - 17.5 g/dL LAB HEMETOLOGY METHOD 07/30/2024 11:33 AM [facility] Hematocrit 38.9(L) 42.0 - 54.0 % LAB HEMETOLOGY METHOD 07/30/2024 11:33 AM [facility] MCV 104.3(H) 79.0 - 98.0 FL LAB HEMETOLOGY METHOD 07/30/2024 11:33 AM [facility] MCH 34.3(H) 27.0 - 32.0 pcg LAB HEMETOLOGY METHOD 07/30/2024 11:33 AM [facility] MCHC 32.9 32.0 - 37.0 g/dL LAB HEMETOLOGY METHOD 07/30/2024 11:33 AM [facility] RDW 12.2 11.0 - 15.0 % LAB HEMETOLOGY METHOD 07/30/2024 11:33 AM [facility] Platelets 140 130 - 400 K/mcL LAB HEMETOLOGY METHOD 07/30/2024 11:33 AM [facility] MPV 11.3(H) 7.0 - 11.0 FL LAB HEMETOLOGY METHOD 07/30/2024 11:33 AM [facility] NRBC 0.0 <1.0 % LAB HEMETOLOGY METHOD 07/30/2024 11:33 AM [facility] NRBC Absolute 0.00 <0.10 K/mcL LAB HEMETOLOGY METHOD 07/30/2024 11:33 AM [facility] Neutrophils Relative 58.9 % LAB HEMETOLOGY METHOD 07/30/2024 11:33 AM [facility] Lymphocytes Relative 26.8 % LAB HEMETOLOGY METHOD 07/30/2024 11:[facility] Monocytes Relative 9.9 % LAB HEMETOLOGY METHOD 07/30/2024 11:33 AM [facility] Eosinophils Relative 3.2 % LAB HEMETOLOGY METHOD 07/30/2024 11:33 AM [facility] Basophils Relative 0.9 % LAB HEMETOLOGY METHOD 07/30/2024 11:33 AM [facility] Immature Granulocytes Relative 0.3 % LAB HEMETOLOGY METHOD 07/30/2024 11:33 AM [facility] Neutrophils Absolute 2.02 1.50 - 7.00 K/mcL LAB HEMETOLOGY METHOD 07/30/2024 11:33 AM [facility] Lymphocytes Absolute 0.92(L) 1.00 - 5.00 K/mcL LAB HEMETOLOGY METHOD 07/30/2024 11:33 AM [facility] Monocytes Absolute 0.34 0.20 - 1.00 K/mcL LAB HEMETOLOGY METHOD 07/30/2024 11:33 AM [facility] Eosinophils Absolute 0.11 0.00 - 0.50 K/mcL LAB HEMETOLOGY METHOD 07/30/2024 11:33 AM [facility] Basophils Absolute 0.03 0.00 - 0.20 K/mcL LAB HEMETOLOGY METHOD 07/30/2024 11:33 AM [facility] Immature Granulocytes Absolute 0.01 0.00 - 0.03 K/mcL LAB HEMETOLOGY METHOD 07/30/2024 11:33 AM [facility] Blood Venous blood specimen / Unknown Venipuncture / Unknown 07/30/2024 10:04 AM EDT 07/30/2024 10:04 AM EDT Lisa Yoo [facility] BLOOD ORDERABLES Cathleen l Result [facility] [address] [place] [address], * Methylmalonic acid, serum (07/30/2024 10:04 AM EDT) Methylmalonic Acid 0.15 <0.40 umol/L 08/04/2024 4:49 AM EDT [facility] Comment: If applicable, any drug confirmation testing reported here was developed and the performance characteristics determined by [facility]. This confirmation testing has not been cleared or approved by the FDA. The laboratory is regulated under CLIA as qualified to perform high-complexity testing. This test is used for patient testing purposes. It should not be regarded as investigational or for research. Test performed at [facility], [address] , [place], [place] ??[address] ? [phone] Marjorie Collins MD, PhD - [employer] Blood Venous blood specimen / Unknown Venipuncture / Unknown 07/30/2024 10:04 AM EDT 07/30/2024 10:04 AM EDT Lisa Yoo [facility] BLOOD ORDERABLES Cathleen l Result [facility] [address] [place] [address] * Vitamin B3 (07/30/2024 10:04 AM EDT) Nicotinic Acid None Detected ng/mL 08/07/2024 4:50 PM EDT [facility] Comment: Reporting Limit: 10 ng/mL Synonym(s): Niacor(R); Niaspan(R); Slo-Niacin(R); Vitamin B3 Nicotinic acid occurs naturally in plants and animals and is also added to many foods as a vitamin supplement. Due to the large variability in the metabolism of nicotinic acid, the dosing preparation used (immediate-release vs. extended-release), and the mg doses used, the serum concentrations may range from less than 10 ng/mL to about [address]284 ng/mL. After oral administration of an immediate-release tablet, peak plasma concentrations are achieved in 30 to 60 min; after oral administration of an extended-release capsule, peak plasma concentrations occur in 4 to 5 hours. The plasma half-life of nicotinic acid is about 1 hour. In one study, fasting plasma concentrations were reported to be approximately 10 ng/mL. In another study it was reported that the administration of a single 1000 mg extended-release tablet resulted in mean nicotinic acid concentrations of less than 50 ng/mL. The administration of multiple oral doses of nicotinic acid (for a total of 2000 mg) resulted in the following mean peak nicotinic acid plasma concentrations: 25 mg every 10 min. for 80 doses (over 13 hours): 1100 ng/mL 50 mg every 10 min. for 40 doses (over 6.5 hours): 5400 ng/mL 100 mg every 10 min. for 20 doses (over 3 hours): 07686 ng/mL This test should be considered as a therapeutic drug monitoring/toxicological test associated with niacin (Vitamin B3) supplementation. Care should be taken in the use of this test for basal Vitamin B3 determination. The supplied reference comment does not reflect normal, endogenous Vitamin B3 concentrations. Analysis by High Performance Liquid Chromatography/ Tandem Mass Spectrometry (LC-MS/MS) Nicotinamide 13 ng/mL 08/07/2024 4:50 PM [facility] Comment: Reporting Limit: 10 ng/mL Synonym(s): Niacinamide; Vitamin B3; Niacin(R) Nicotinamide is a metabolite of nicotinic acid, is the common form of niacin included in vitamin preparations and is also added to many foods as a vitamin supplement. Due to the large variability in the metabolism of nicotinic acid, plasma concentrations of this metabolite also are variable. In one study, fasting plasma concentrations were reported to be approximately 40 ng/mL. In another study it was reported that the administration of a single 1000 mg extended-release tablet of nicotinic acid resulted in a mean peak Nicotinamide concentration of 400 ng/mL between 5 and 10 hours post dose, decreasing to about 100 ng/mL by 16 hours post dose. The administration of multiple oral doses of nicotinic acid (for a total of 2000 mg) resulted in the following mean peak Nicotinamide plasma concentrations: 25 mg every 10 min. for 80 doses (over 13 hours): 1300 ng/mL 50 mg every 10 min. for 40 doses (over 6.5 hours): 2300 ng/mL 100 mg every 10 min. for 20 doses (over 3 hours): 2000 ng/mL This test should be considered as a therapeutic drug monitoring/toxicological test associated with niacin (Vitamin B3) supplementation. Care should be taken in the use of this test for basal Vitamin B3 determination. The supplied reference comment does not reflect normal, endogenous Vitamin B3 concentrations. Analysis by High Performance Liquid Chromatography/ Tandem Mass Spectrometry (LC-MS/MS) Nicotinuric Acid None Detected ng/mL 08/07/2024 4:50 PM EDT [facility] Comment: Reporting Limit: 10 ng/mL Synonym(s): Niacin Metabolite Nicotinuric acid is a metabolite of nicotinic acid and nicotinamide. Due to the large variability in the metabolism of nicotinic acid and nicotinamide, plasma concentrations of this metabolite also are variable. In one study it was reported that the administration of a single 1000 mg extended-release tablet of nicotinic acid resulted in a mean peak nicotinuric acid concentration of over 1000 ng/mL within 2 hours post dose, decreasing to less than 200 ng/mL by 6 hours and less than 50 ng/mL by 12 hours post dose. The administration of multiple oral doses of nicotinic acid (for a total of 2000 mg) resulted in the following mean peak nicotinuric acid plasma concentrations: 25 mg every 10 min. for 80 doses (over 13 hours): 950 ng/mL 50 mg every 10 min. for 40 doses (over 6.5 hours): 2300 ng/mL 100 mg every 10 min. for 20 doses (over 3 hours): 5100 ng/mL This test should be considered as a therapeutic drug monitoring/toxicological test associated with niacin (Vitamin B3) supplementation. Care should be taken in the use of this test for basal Vitamin B3 determination. The supplied reference comment does not reflect normal, endogenous Vitamin B3 concentrations. Analysis by High Performance Liquid Chromatography/ Tandem Mass Spectrometry (LC-MS/MS) This test was developed and its performance characteristics determined by [facility]. ??It has not been cleared or approved by the [place] Food and Drug Administration. Digital data review may have taken place remotely by qualified [facility] staff utilizing a secure VPN connection for some or all of the reported results. This is in accordance with and follows CLIA regulations. Testing performed at [facility] [employer] [address] [place] [phone] CLIA [id number] Blood Venous blood specimen / Unknown Venipuncture / Unknown 07/30/2024 10:04 AM EDT 07/30/2024 10:04 AM EDT Lisa Batistaington [facility] BLOOD ORDERABLES Cathleen l Result [facility] [address] [place] [address] * Vitamin D 25 hydroxy (07/30/2024 10:04 AM EDT) Vit D, 25-Hydroxy 44.7 30.0 - 80.0 ng/mL LAB CHEMISTRY METHOD 07/30/2024 3:23 PM EDT [facility] Blood Venous blood specimen / Unknown Venipuncture / Unknown 07/30/2024 10:04 AM EDT 07/30/2024 10:04 AM EDT Lisa Batistaington [facility] BLOOD ORDERABLES Cathleen l Result Performing Organization Address City/[facility]/ZIP Co de Phone Number [facility] [address] [place] [address], [place] [phone] * Sedimentation rate (07/30/2024 10:04 AM EDT) Pathologist [facility] Sed Rate 10 0 - 20 mm/hr LAB HEMETOLOGY METHOD 07/30/2024 11:37 AM EDT [facility] Blood Venous blood specimen / Unknown Venipuncture / Unknown 07/30/2024 10:04 AM EDT 07/30/2024 10:04 AM EDT Lisa Yoo [facility] BLOOD ORDERABLES Cathleen l Result [facility] [address] [place] [address], [place] [phone] * C reactive protein, high sensitivity (07/30/2024 10:04 AM EDT) CRP, High Sensitivity 0.69 mg/L LAB CHEMISTRY METHOD 07/30/2024 3:23 PM EDT [facility] Comment: Cardio CRP Relative Risk Categories ?? Low ? <1.0 mg/L ?? Average ?? 1.0 - 3.0 mg/L ?? High ?>3.0 mg/L Levels >10.0 mg/L should be ignored and repeated when the patient is stable and infection or inflammation is ruled out. Blood Venous blood specimen / Unknown Venipuncture / Unknown 07/30/2024 10:04 AM EDT 07/30/2024 10:04 AM EDT Lisa Yoo [facility] BLOOD ORDERABLES Cathleen l Result [facility] [address] [place] [address], [place] [phone] * Vitamin B1 (07/30/2024 10:04 AM EDT) [facility] Vitamin B1 Whole Blood 117 38 - 122 ug/L 08/04/2024 9:50 AM EDT [facility] Comment: This test was developed and the performance characteristics determined by [facility]. It has not been cleared or approved by the FDA. The laboratory is regulated under CLIA as qualified to perform high-complexity testing. This test is used for patient testing purposes. It should not be regarded as investigational or for research. Test performed at [facility], [address], [place] ??[address] ? [phone] Marjorie Collins MD, PhD - [employer] Blood Venous blood specimen / Unknown Venipuncture / Unknown 07/30/2024 10:04 AM EDT 07/30/2024 10:04 AM EDT Lisa Yoo [facility] BLOOD ORDERABLES Cathleen l Result Performing Organization Address City/[facility]/ZIP Co de Phone Number [facility] [address] [place] [address] * (ABNORMAL) Vitamin B6 (07/30/2024 10:04 AM EDT) Pathologist [facility] Vitamin B6 (Pyridoxine) Level 60(H) 5 - 50 ug/L 08/04/2024 11:57 AM EDT [facility] Comment: This test was developed and the performance characteristics determined by [facility]. It has not been cleared or approved by the FDA. The laboratory is regulated under CLIA as qualified to perform high-complexity testing. This test is used for patient testing purposes. It should not be regarded as investigational or for research. Test performed at [facility], [address] [facility] [address], [place], [place] ??[address] ? [phone] Marjorie Collins MD, PhD - [employer] Blood Venous blood specimen / Unknown Venipuncture / Unknown 07/30/2024 10:04 AM EDT 07/30/2024 10:04 AM EDT Lisa Yoo [facility] BLOOD ORDERABLES Cathleen l Result Performing Organization Address [facility] Co de Phone Number [facility] [address] [place] [address] * (ABNORMAL) Magnesium (07/30/2024 10:04 AM EDT) [facility] Magnesium 1.6(L) 1.9 - 2.6 mg/dL LAB CHEMISTRY METHOD 07/30/2024 3:23 PM EDT [facility] Blood Venous blood specimen / Unknown Venipuncture / Unknown 07/30/2024 10:04 AM EDT 07/30/2024 10:04 AM EDT Lisa Yoo [facility] BLOOD ORDERABLES Cathleen l Result Performing Organization Address City/[facility]/ZIP Co de Phone Number [facility] [address] [place] [address], [place] [phone] * (ABNORMAL) Homocysteine, total (07/30/2024 10:04 AM EDT) [facility] Homocysteine 19.5(H) 3.2 - 10.7 mcmol/L LAB CHEMISTRY METHOD 07/30/2024 3:46 PM EDT [facility] Blood Venous blood specimen / Unknown Venipuncture / Unknown 07/30/2024 10:04 AM EDT 07/30/2024 10:04 AM EDT Lisa Naila [facility] BLOOD ORDERABLES Cathleen l Result Performing Organization Address [facility]/ZIP Co de Phone Number [facility] [address] [place] [address], [place] [phone] * (ABNORMAL) Folate (07/30/2024 10:04 AM EDT) [facility] Folate >20.0(H) 2.8 - 17.0 ng/ml LAB CHEMISTRY METHOD 07/30/2024 3:46 PM EDT [facility] Blood Venous blood specimen / Unknown Venipuncture / Unknown 07/30/2024 10:04 AM EDT 07/30/2024 10:04 AM EDT Lisa Yoo [facility] BLOOD ORDERABLES Cathleen l Result [facility] [address] [place] [address], [place] [phone] * (ABNORMAL) Comprehensive metabolic panel (07/30/2024 10:04 AM EDT) [facility] Sodium 137 133 - 145 mmol/L LAB CHEMISTRY METHOD 07/30/2024 3:46 PM EDT [facility] Potassium 4.6 3.5 - 5.5 mmol/L LAB CHEMISTRY METHOD 07/30/2024 3:46 PM [facility] Chloride 101 96 - 110 mmol/L LAB CHEMISTRY METHOD 07/30/2024 3:46 PM [facility] CO2 24 21 - 32 mmol/L LAB CHEMISTRY METHOD 07/30/2024 3:46 PM [facility] Anion Gap 12(H) 3 - 11 LAB CHEMISTRY METHOD 07/30/2024 3:46 PM [facility] Glucose 161(H) 70 - 100 mg/dL LAB CHEMISTRY METHOD 07/30/2024 3:46 PM [facility] BUN 6 5 - 25 mg/dL LAB CHEMISTRY METHOD 07/30/2024 3:46 PM [facility] Creatinine 0.85 0.70 - 1.30 mg/dL LAB CHEMISTRY METHOD 07/30/2024 3:46 PM [facility] eGFR 100 >=60 mL/min/1. 73m2 LAB CHEMISTRY METHOD 07/30/2024 3:46 PM [facility] Comment:Calculation based on the??Chronic Kidney Disease Epidemiology Collaboration (CKD-EPI) equation refit??without adjustment for race. BUN/Creatinine Ratio 7.1 LAB CHEMISTRY METHOD 07/30/2024 3:46 PM [facility] Calcium 9.0 8.5 - 10.5 mg/dL LAB CHEMISTRY METHOD 07/30/2024 3:46 PM [facility] AST (SGOT) 39 10 - 42 unit/L LAB CHEMISTRY METHOD 07/30/2024 3:46 PM [facility] ALT (SGPT) 27 10 - 60 unit/L LAB CHEMISTRY METHOD 07/30/2024 3:46 PM [facility] Alkaline Phosphatase 132(H) 42 - 121 unit/L LAB CHEMISTRY METHOD 07/30/2024 3:46 PM [facility] Total Protein 6.6 6.0 - 8.0 g/dL LAB CHEMISTRY METHOD 07/30/2024 3:46 PM EDT [facility] Albumin 2.9(L) 3.2 - 5.0 g/dL LAB CHEMISTRY METHOD 07/30/2024 3:46 PM EDT [facility] Total Bilirubin 0.9 0.0 - 1.4 mg/dL LAB CHEMISTRY METHOD 07/30/2024 3:46 PM EDT [facility] Blood Venous blood specimen / Unknown Venipuncture / Unknown 07/30/2024 10:04 AM EDT 07/30/2024 10:04 AM EDT Lisa Yoo TRAIN ELECTRONIC TECHNICIAN LAB BLOOD ORDERABLES Cathleen l Result [facility] [address] [place] [address], [place] [phone] * Chlamydia trachomatis and Neisseria gonorrhoeae molecular study (06/25/2024 12:00 AM EST) Pathologist [facility] Neisseria gonorrhoeae PCR Negative Negative LAB MOLECULAR DIAGNOSTICS METHOD 06/25/2024 5:36 PM EST [facility] Chlamydia trachomatis PCR Negative Negative LAB MOLECULAR DIAGNOSTICS METHOD 06/25/2024 5:36 PM EST [facility] Urine Urethral structure / Unknown Non-blood Collection / Unknown 06/25/2024 06/25/2024 2:34 PM EST Jose Covarrubias MD LAB MICROBIOLOGY - GENERAL ORDER LAXMI Final Result [facility] [address] [place] [address], [place] [phone] * HM Urine Albumin Creatinine Ratio (12/18/2023) Urine Albumin Creatinine Ratio abstracted Isidro Provider HEALTH MAINTENANCE Final Result * Lipid panel (12/05/2023) [facility] Cholesterol 105 0 - 200 mg/dL Blood Venous blood specimen / Unknown Result [facility] Provider LAB BLOOD ORDERABLES Cathleen l Result * Diabetes Foot Exam (04/02/2023) [facility] Diabetes: Annual Foot Exam abstracted Result [facility] Provider HEALTH MAINTENANCE Final Result * HIV Screening (05/03/2022) [facility] HIV Screening abstracted Result [facility] Provider HEALTH MAINTENANCE Final Result * Colonoscopy (08/03/2021) [facility] Colonoscopy no interpretation , abstracted Anatomical Region Laterality Modality Other Result [facility] Provider HEALTH MAINTENANCE Final Result from Last 3 Months or Most Recently Relevant to Health Maintenance Insurance [employer] Advance Directives Documents on File Type Date Recorded 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
--- OUTSIDE RECORDS SUMMARY | 2024-08-20 14:40 | XMS_ITS | Clinical Summary ---
Author Organization [facility] Address [address] [place] [address] Care Team Providers Care Manufacturing Engineer Machining Name Role Phone Sriram Moreland MD Primary Care Provider [phone] Medications No known medications Active Problems No [...] age to complete this topic Care Teams Manufacturing Engineer Machining Relationship Specialty Start Date End Date Sriram Moreland MD [address] [place] [address] PCP - General Internal Medicine 05/15/22
== END 2024-08-20 13:26 | disposition home or self-care (01) ==
LOC: HO.NEURO 13:25
PROVIDERS: PCP Internal Medicine; Visit Provider Nurse Practitioner Family
DX: G62.89 Other specified polyneuropathies (principal)
CPT/HCPCS: 95860; 95886; 95909

== ENCOUNTER → 2024-08-20 13:28 | Outpatient (BNV) | payer OTHER, SELFPAY | PROVIDERS: PCP Internal Medicine; Visit Provider Physical Medicine & Rehabilitation | DX: G57.93 Unspecified mononeuropathy of bilateral lower limbs (principal); R20.0 Anesthesia of skin; R20.2 Paresthesia of skin | CPT/HCPCS: 95886; 95909 ==

== ENCOUNTER 2024-09-03 08:58 | Outpatient (REF) | payer OTHER, SELFPAY ==
--- OUTSIDE RECORDS SUMMARY | 2024-09-03 09:50 | XMS_ITS | Clinical Summary ---
Author Organization [place] [address] [address] Building Address [address] [place] [phone] Phone Care Team Providers Care Photographer Assistant Name Role Phone Sriram Moreland MD Primary Care Provider [phone] Allergies Active Allergy Reactions Criticality Noted Date Comments Other 11/18/2012 Seasonal Allergies Medications pantoprazole (PROTONIX) 40 mg EC tablet TAKE 1 TAB BY MOUTH DAILY IN THE AM ON EMPTY STOMACH, WAIT 30 MIN & THEN EAT TO ACTIVATE MEDICATION 4 Active metFORMIN XR (GLUCOPHAGE-XR) 500 mg [...] cap before sleep 90 capsule 5 Active allopurinoL (ZYLOPRIM) 300 mg tablet Take 1 tablet (300 mg total) by mouth 1 (one) time each day. 90 tablet 1 5 Active pancrelipase, Inz-Estp-Jxcj, (Creon) 24,000-76,000 -120,000 unit capsule Take 1 capsule (24,000 Units total) by mouth 3 (three) times a day with meals. 270 capsule 1 5 Active cyanocobalamin (VITAMIN B-12) 500 mcg tablet Take 1 tablet (500 mcg total) by mouth 1 (one) time each day. for 30 days 90 tablet 1 5 Active allopurinoL (ZYLOPRIM) 300 mg tablet Take 1 tablet (300 mg total) by mouth 1 (one) time each day. 4 08/21/19 25 Discontin ued(Reord er) gabapentin (NEURONTIN) 300 mg capsule Take 1 cap before sleep 4 08/20/19 25 Discontin ued(Reord er) pancrelipase, Vvk-Kkfm-Rplj, (Creon) 24,000-76,000 -120,000 unit capsule Take 1 Capsule by mouth 3 times daily. 0 08/21/19 25 Discontin ued(Reord er) cyanocobalamin (VITAMIN B-12) 500 mcg tablet Take 1 tablet (500 mcg total) by mouth 1 (one) time each day. for 30 days 4 08/21/19 25 Discontin ued(Reord er) Active Problems Problem [...] no further work-up Type 2 diabetes mellitus wit h microalbuminuria ([facility] V24, [facility] V28) 04/17/2021 Type 2 diabetes mellitus wit h diabetic neuropathy ([facility] V24, [facility] V28) 06/17/2020 Assessment & Plan (04/07/2024 1:39 PM [...] 08/17/2024 2:20 PM EDT Office Visit Gastroenterology [facility] [address] [phone] Jan Hoover PA Fatty liver (Primary Dx); Elevated alkaline phosphatase level; Pancreatic insufficiency 08/11/2024 Telephone Gastroenterology [facility] [address] [phone] Jan Hoover PA 07/11/2024 9:45 AM EST Office Visit Walk-In Clinic [facility] [address] [place] [phone] Jose Ocasio PA Tinea versicolor (Primary Dx) 07/10/2024 Telephone Internal Medicine - [address] [phone] Sriram Moreland MD Rash 07/06/2024 2:30 PM EST Office Visit Internal Medicine - [address] [phone] Ele Lyon, EM Tinea pedis of both feet (Primary Dx); Tinea corporis; Insomnia, unspecified type 06/29/2024 1:45 PM EST Office Visit [facility] Hematology Oncology [address] [place] [phone] Marta Mack MD Anemia, unspecified type; Thrombocytopenia (CMS/HCC V24) 06/25/2024 Lab Requisition [facility] - Main Lab [address] [facility] [place] [phone] Jose Covarrubias MD Dysuria 06/12/2024 1:00 PM EST Office Visit Gastroenterology - [place] [address] [place] [phone] Jan Hoover PA Fatty liver (Primary Dx); Elevated LFTs; Pancreatic insufficiency; Diabetes 1.5, managed as type 2 (CMS/HCC V24, CMS/HCC V28) from Last 3 Months Immunizations Name Administration [...] Surgery Date Site/Laterality Comments VASECTOMY 2002 PROCEDURE: FL VASECTOMY UNI/BI SPX W/POSTOP SEMEN EXAMS COLONOSCOPY 03/12/2014 PROCEDURE: HISTORICAL COLONOSCOPY; COMMENT: Urgent procedure as inpt at [facility]; sub-optimal prep; not an adequate screening exam. COLONOSCOPY 03/21/2010 PROCEDURE: HISTORICAL COLONOSCOPY; COMMENT: Up to cecum, good preparation, 2 rectal polyps removed: hyperplastic UPPER GASTROINTESTINAL ENDOSCOPY 03/09/2014 PROCEDURE: FL UPPER GI ENDOSCOPY PERFORMED; COMMENT: Rickie; normal. [...] 2 diabetes mellitus wit h diabetic neuropathy (CMS/HCC V24, CMS/HCC V28) 06/17/2020 DX:Type 2 diabetes mellitus with diabetic neuropathy (HCC) Type 2 diabetes mellitus wit h microalbuminuria (CMS/HCC V24, CMS/HCC V28) 04/17/2021 DX:Type 2 diabetes mellitus with microalbuminuria (HCC) Weight loss DX:Weight loss Pancreatitis DX:Pancreatitis Gastritis DX:Gastritis Weight loss, abnormal DX:Weight loss, abnormal Decreased appetite DX:Decreased appetite Esophageal reflux DX:Esophageal reflux Chronic pancreatitis (CMS/ C V24, CMS/HCC V28) DX:Chronic pancreatitis (HCC ) Lung nodule 07/23/2023 DX:Lung nodule Family History Medical History Relation Name Comments Asthma Brother 1 Hypertension Brother 2 Colon polyps Father Hypertension Father HTN, 3 adenomat ous transverse colon polyps Stroke Maternal Grandfather Glaucoma Maternal Grandmother CRF-otis lysis Diabetes Mother emphysema, Copd , smoker, normal [id number] level Other: TB Paternal Grandmother Relation Name [...] 09/04/2024 8:15 AM EDT Appointment Ultrasound - [address] [phone] 10/01/2024 11:30 AM EDT Office Visit Internal Medicine - [address] [phone] Sriram Moreland MD [address] [place] [address] 10/05/2024 1:30 PM EDT Office Visit Internal Medicine - [address] [phone] Ele Lyon NP [address] [place] [address] Health Maintenance Due Date Last Done Comments [...] age to complete this topic Meningococcal B Vaccine Aged Out No l onger eligible based on patient's age to complete [...] LAB CHEMISTRY METHOD 08/06/2024 12:54 PM EDT [facility] Hepatitis A Antibody IgM Negative Negative LAB CHEMISTRY METHOD 08/06/2024 12:54 PM EDT [facility] Hep B Core IgM Negative Negative LAB CHEMISTRY METHOD 08/06/2024 12:54 PM EDT [facility] Hepatitis C Antibody Negative Negative LAB CHEMISTRY METHOD 08/06/2024 12:54 PM EDT [facility] Blood Venous blood specimen / Unknown Venipuncture / Unknown 08/06/2024 10:33 AM EDT 08/06/2024 11:05 AM EDT Sriram Moreland MD LAB BLOOD ORDERABLES Cathleen l Result [facility] [address] [place] [address], * Vitamin B5 (08/06/2024 10:33 AM EDT) Pathologist [facility] [place] Vitamin B5 (Panththenic Acid) 197 <275 ng/mL 08/11/2024 1:56 PM EDT [facility] Comment: This test was developed and its analytical performance characteristics have been determined by [employer], [place], [place]. It has not been cleared or approved by the FDA. This assay has been validated pursuant to the CLIA regulations and is used for clinical purposes. Test Performed by [facility], [employer] [facility], [address] [place] [address] Mik Santiago M.D., Ph.D., Director of Laboratories , CLIA [id number] Blood Venous blood specimen / Unknown Venipuncture / Unknown 08/06/2024 10:33 AM EDT 08/06/2024 11:05 AM EDT Lisa ARRINGTONP LAB BLOOD ORDERABLES Cathleen l Result [facility] [address] [place] [address] * Alkaline phosphatase, isoenzymes (08/06/2024 10:33 AM EDT) Alkaline Phosphatase 108 35 - 144 U/L 08/13/2024 4:39 PM EDT [facility] Comment: Test Performed at: [facility] [address] [place] [address] ? I Theresa ALCANTARA, PhD, JAN Alk [...] EDT [facility] Comment: Test Performed at: [facility] [address] [place] [address] ? I Theresa ALCANTARA, PhD, JAN Alk Phos Isoenzyme Macrohepatic TNP 08/13/2024 4:39 PM EDT [facility] Alkaline Phosphatase Isoenzymes Interpretation TNP 08/13/2024 4:39 PM EDT [facility] Blood Venous blood specimen / Unknown Venipuncture / Unknown 08/06/2024 10:33 AM EDT 08/06/2024 11:07 AM EDT us Sriram Moreland MD LAB BLOOD ORDERABLES Edit ed Result - Final [facility] [address] [place] [address] * Hemoglobin A1c (08/06/2024 10:33 AM EDT) Hemoglobin A1C 6.1 <6.5 % LAB CHEMISTRY METHOD 08/06/2024 1:56 PM EDT [facility] Mean Bld Glu Estim. 128 mg/dL LAB CHEMISTRY METHOD 08/06/2024 1:56 PM EDT [facility] Blood Venous blood specimen / Unknown Venipuncture / Unknown 08/06/2024 10:33 AM EDT 08/06/2024 11:06 AM EDT Sriram Moreland MD LAB BLOOD ORDERABLES Cathleen l Result Performing Organization Address City/[facility]/ZIP Co de Phone Number [facility] [address] [place] [address], [place] [phone] * (ABNORMAL) Bilirubin, direct (08/06/2024 10:33 AM EDT) Bilirubin, Direct 0.6(H) 0.0 - 0.3 mg/dL LAB CHEMISTRY METHOD 08/06/2024 11:56 AM EDT [facility] Blood Venous blood specimen / Unknown Venipuncture / Unknown 08/06/2024 10:33 AM EDT 08/06/2024 11:05 AM EDT Sriram Moreland MD LAB BLOOD ORDERABLES Cathleen l Result Performing Organization Address [facility] Co de Phone Number [facility] [address] [place] [address], [place] [phone] * (ABNORMAL) Bilirubin duplicate procedure to order (07/30/2024 10:04 AM EDT) Total Bilirubin 0.9 0.0 - 1.4 mg/dL LAB CHEMISTRY METHOD 07/30/2024 3:46 PM EDT [facility] Bilirubin, Direct 0.5(H) 0.0 - 0.3 mg/dL LAB CHEMISTRY METHOD 07/30/2024 3:46 PM EDT [facility] Bilirubin, Indirect 0.4 0.0 - 1.1 mg/dL LAB CHEMISTRY METHOD 07/30/2024 3:46 PM EDT [facility] Blood Venous blood specimen / Unknown Venipuncture / Unknown 07/30/2024 10:04 AM EDT 07/30/2024 10:04 AM EDT Sriram Moreland MD LAB BLOOD ORDERABLES Cathleen l Result Performing Organization Address City/[facility]/ZIP Co de Phone Number [facility] [address] [place] [address], [place] [phone] * Thyroid stimulating hormone with reflex to free t4 and free t3 (07/30/2024 10:04 AM EDT) Pathologist [facility] [place] TSH 2.18 0.40 - 4.00 mcIU/mL LAB CHEMISTRY METHOD 07/30/2024 3:23 PM EDT [facility] Blood Venous blood specimen / Unknown Venipuncture / Unknown 07/30/2024 10:04 AM EDT 07/30/2024 10:04 AM EDT Lisa FOSTER LAB BLOOD ORDERABLES Cathleen l Result Performing Organization Address [facility] Co de Phone Number [facility] [address] [place] [address], [place] [phone] * (ABNORMAL) Vitamin B12 and folate (07/30/2024 10:04 AM EDT) Vitamin B-12 934(H) 250 - 900 pcg/mL LAB CHEMISTRY METHOD 07/30/2024 3:46 PM EDT [facility] Folate >20.0(H) 2.8 - 17.0 ng/ml LAB CHEMISTRY METHOD 07/30/2024 3:46 PM EDT [facility] Blood Venous blood specimen / Unknown Venipuncture / Unknown 07/30/2024 10:04 AM EDT 07/30/2024 10:04 AM EDT Lisa Batistaington [employer] LAB BLOOD ORDERABLES Cathleen eleuterio Result [facility] [address] [place] [address], * (ABNORMAL) CBC auto differential (07/30/2024 10:04 AM EDT) WBC 3.4(L) 4.8 - 10.8 K/mcL LAB HEMETOLOGY METHOD 07/30/2024 11:33 AM EDT [facility] RBC 3.70(L) 4.50 - 5.50 M/mcL LAB HEMETOLOGY METHOD 07/30/2024 11:33 AM [facility] Hemoglobin 12.8(L) 13.5 - 17.5 g/dL LAB HEMETOLOGY METHOD 07/30/2024 11:33 AM [facility] Hematocrit 38.9(L) 42.0 - 54.0 % LAB HEMETOLOGY METHOD 07/30/2024 11:33 AM [facility] MCV 104.3(H) 79.0 - 98.0 FL LAB HEMETOLOGY METHOD 07/30/2024 11:33 AM [facility] MCH 34.3(H) 27.0 - 32.0 pcg LAB HEMETOLOGY METHOD 07/30/2024 11:33 AM [facility] MCHC 32.9 32.0 - 37.0 g/dL LAB HEMETOLOGY METHOD 07/30/2024 11:33 AM [facility] RDW 12.2 11.0 - 15.0 % LAB HEMETOLOGY METHOD 07/30/2024 11:33 AM [facility] Platelets 140 130 - 400 K/mcL LAB HEMETOLOGY METHOD 07/30/2024 11:33 AM [facility] MPV 11.3(H) 7.0 - 11.0 FL LAB HEMETOLOGY METHOD 07/30/2024 11:33 AM [facility] NRBC 0.0 <1.0 % LAB HEMETOLOGY METHOD 07/30/2024 11:33 AM [facility] NRBC Absolute 0.00 <0.10 K/mcL LAB HEMETOLOGY METHOD 07/30/2024 11:33 AM [facility] Neutrophils Relative 58.9 % LAB HEMETOLOGY METHOD 07/30/2024 11:33 AM [facility] Lymphocytes Relative 26.8 % LAB HEMETOLOGY METHOD 07/30/2024 11:33 AM [facility] Monocytes Relative 9.9 % LAB HEMETOLOGY METHOD 07/30/2024 11:33 AM [facility] Eosinophils Relative 3.2 % LAB HEMETOLOGY METHOD 07/30/2024 11:33 AM [facility] Basophils Relative 0.9 % LAB HEMETOLOGY METHOD 07/30/2024 11:33 AM [facility] Immature Granulocytes Relative 0.3 % LAB HEMETOLOGY METHOD 07/30/2024 11:33 AM [facility] Neutrophils Absolute 2.02 1.50 - 7.00 K/mcL LAB HEMETOLOGY METHOD 07/30/2024 11:33 AM [facility] Lymphocytes Absolute 0.92(L) 1.00 - 5.00 K/mcL LAB HEMETOLOGY METHOD 07/30/2024 11:33 AM [facility] Monocytes Absolute 0.34 0.20 - 1.00 K/mcL LAB HEMETOLOGY METHOD 07/30/2024 11:33 AM [facility] Eosinophils Absolute 0.11 0.00 - 0.50 K/mcL LAB HEMETOLOGY METHOD 07/30/2024 11:33 AM EDT [facility] Basophils Absolute 0.03 0.00 - 0.20 K/mcL LAB HEMETOLOGY METHOD 07/30/2024 11:33 AM EDT [facility] Immature Granulocytes Absolute 0.01 0.00 - 0.03 K/mcL LAB HEMETOLOGY METHOD 07/30/2024 11:33 AM EDT [facility] Blood Venous blood specimen / Unknown Venipuncture / Unknown 07/30/2024 10:04 AM EDT 07/30/2024 10:04 AM EDT Lisa Yoo [facility] BLOOD ORDERABLES Cathleen l Result Performing Organization Address City/[facility]/ZIP Co de Phone Number [facility] [address] [place] [address], [place] [phone] * Methylmalonic acid, serum (07/30/2024 10:04 AM EDT) Methylmalonic Acid 0.15 <0.40 umol/L 08/04/2024 4:[address] [facility] Comment: If applicable, any drug confirmation testing reported here was developed and the performance characteristics determined by [facility]. This confirmation testing has not been cleared or approved by the FDA. The laboratory is regulated under CLIA as qualified to perform high-complexity testing. This test is used for patient testing purposes. It should not be regarded as investigational or for research. Test performed at [facility], [address] , [place], [place] ??[address] ? [phone] Marjorie Collins MD, PhD - Safety Sealer Blood Venous blood specimen / Unknown Venipuncture / Unknown 07/30/2024 10:04 AM EDT 07/30/2024 10:04 AM EDT Lisa Yoo [facility] BLOOD ORDERABLES Cathleen l Result [facility] [address] [place] [address] * Vitamin B3 (07/30/2024 10:04 AM EDT) [facility] Nicotinic Acid None Detected ng/mL 08/07/2024 4:50 [...] from less than 10 ng/mL to about [address]18 ng/mL. After oral administration of an immediate-release [...] min. for 20 doses (over 3 hours): 78144 ng/mL This test should be considered as a therapeutic drug monitoring/toxicological test associated with niacin (Vitamin B3) supplementation. Care should be taken in the use of this test for basal Vitamin B3 determination. The supplied reference comment does not reflect normal, endogenous Vitamin B3 concentrations. Analysis by High Performance Liquid Chromatography/ Tandem Mass Spectrometry (LC-MS/MS) Nicotinamide 13 ng/mL 08/07/2024 4:50 PM EDT [facility] [...] Acid None Detected ng/mL 08/07/2024 4:50 PM EDSh[facility] Comment: Reporting Limit: 10 [...] developed and its performance characteristics determined by [employer]. ??It has not been cleared or approved by the [place] Food and Drug Administration. Digital data review may have taken place remotely by qualified [facility] staff utilizing a secure VPN connection for some or all of the reported results. This is in accordance with and follows CLIA regulations. Testing performed at [facility] [address] [place] [phone] CLIA [id number] Blood Venous blood specimen / Unknown Venipuncture / Unknown 07/30/2024 10:04 AM EDT 07/30/2024 10:04 AM EDT Lisa Yoo [facility] BLOOD ORDERABLES Cathleen l Result [facility] [address] [place] [address] * Vitamin D 25 hydroxy (07/30/2024 10:04 AM EDT) [facility] Vit D, 25-Hydroxy 44.7 30.0 - 80.0 ng/mL LAB CHEMISTRY METHOD 07/30/2024 3:23 PM EDT [facility] Blood Venous blood specimen / Unknown Venipuncture / Unknown 07/30/2024 10:04 AM EDT 07/30/2024 10:04 AM EDT Lisa Yoo FNP LAB BLOOD ORDERABLES Cathleen l Result Performing Organization Address City/[facility]/ZIP Co de Phone Number [facility] [address] [place] [address], [place] [phone] * Sedimentation rate (07/30/2024 10:04 AM EDT) [facility] Sed Rate 10 0 - 20 mm/hr LAB HEMETOLOGY METHOD 07/30/2024 11:37 AM EDT [facility] Blood Venous blood specimen / Unknown Venipuncture / Unknown 07/30/2024 10:04 AM EDT 07/30/2024 10:04 AM EDT us Lisa Yoo [facility] BLOOD ORDERABLES Cathleen l Result Performing Organization Address [facility]/ZIP Co de Phone Number [facility] [address] [place] [address], [place] [phone] * C reactive protein, high sensitivity (07/30/2024 10:04 AM EDT) [facility] CRP, High Sensitivity 0.69 mg/L LAB CHEMISTRY METHOD 07/30/2024 3:23 PM EDT [facility] Comment: Cardio CRP Relative Risk Categories ?? Low ? <1.0 mg/L ?? Average ?? 1.0 - 3.0 mg/L ?? High ?>3.0 mg/L Levels >10.0 mg/L should be ignored and repeated when the patient is stable and infection or inflammation is ruled out. Blood Venous blood specimen / Unknown Venipuncture / Unknown 07/30/2024 10:04 AM EDT 07/30/2024 10:04 AM EDT Lisa Yoo [facility] BLOOD ORDERABLES Cathleen l Result Performing Organization Address [facility] Co de Phone Number [facility] [address] [place] [address], [place] [phone] * Vitamin B1 (07/30/2024 10:04 AM EDT) [facility] Vitamin B1 Whole Blood 117 38 - 122 ug/L 08/04/2024 9:[address] [facility] Comment: This test was developed and the performance characteristics determined by [facility]. It has not been cleared or approved by the FDA. The laboratory is regulated under CLIA as qualified to perform high-complexity testing. This test is used for patient testing purposes. It should not be regarded as investigational or for research. Test performed at [facility], [address] [place], [place] ??[address] ? [phone] Marjorie Collins MD, PhD - Safety Sealer Blood Venous blood specimen / Unknown Venipuncture / Unknown 07/30/2024 10:04 AM EDT 07/30/2024 10:04 AM EDT Lisa Naila [facility] BLOOD ORDERABLES Cathleen l Result Performing Organization Address City/[facility]/ZIP Co de Phone Number [facility] [address] [place] [address] * (ABNORMAL) Vitamin B6 (07/30/2024 10:04 AM EDT) Vitamin B6 (Pyridoxine) Level 60(H) 5 - 50 ug/L 08/04/2024 11:[address] [facility] Comment: This test was developed and the performance characteristics determined by [facility]. It has not been cleared or approved by the FDA. The laboratory is regulated under CLIA as qualified to perform high-complexity testing. This test is used for patient testing purposes. It should not be regarded as investigational or for research. Test performed at [facility], [address] [place], [place] ??[address] ? [phone] Marjorie Collins MD, PhD - Safety Sealer Blood Venous blood specimen / Unknown Venipuncture / Unknown 07/30/2024 10:04 AM EDT 07/30/2024 10:04 AM EDT Lisa Yoo [facility] BLOOD ORDERABLES Cathleen l Result Performing Organization Address City/[facility]/ZIP Co de Phone Number [facility] [address] [place] [address] * (ABNORMAL) Magnesium (07/30/2024 10:04 AM EDT) Magnesium 1.6(L) 1.9 - 2.6 mg/dL LAB CHEMISTRY METHOD 07/30/2024 3:23 PM EDT [facility] Blood Venous blood specimen / Unknown Venipuncture / Unknown 07/30/2024 10:04 AM EDT 07/30/2024 10:04 AM EDT Lisa Naila [facility] BLOOD ORDERABLES Cathleen l Result Performing Organization Address [facility]/ZIP Co de Phone Number [facility] [address] [place] [address], * (ABNORMAL) Homocysteine, total (07/30/2024 10:04 AM EDT) Homocysteine 19.5(H) 3.2 - 10.7 mcmol/L LAB CHEMISTRY METHOD 07/30/2024 3:46 PM EDT [facility] Blood Venous blood specimen / Unknown Venipuncture / Unknown 07/30/2024 10:04 AM EDT 07/30/2024 10:04 AM EDT us Culpie Naila [facility] BLOOD ORDERABLES Cathleen l Result Performing Organization Address [facility]/ZIP Wa de Phone Number [facility] [address] [place] [address], [place] [phone] * (ABNORMAL) Folate (07/30/2024 10:04 AM EDT) Folate >20.0(H) 2.8 - 17.0 ng/ml LAB CHEMISTRY METHOD 07/30/2024 3:46 PM EDT [facility] Blood Venous blood specimen / Unknown Venipuncture / Unknown 07/30/2024 10:04 AM EDT 07/30/2024 10:04 AM EDT Lisa Yoo [facility] BLOOD ORDERABLES Cathleen l Result [facility] [address] [place] [address], * (ABNORMAL) Comprehensive metabolic panel (07/30/2024 10:04 AM EDT) Sodium 137 133 - 145 mmol/L LAB CHEMISTRY METHOD 07/30/2024 3:46 PM EDT [facility] Potassium 4.6 3.5 - 5.5 mmol/L LAB CHEMISTRY METHOD 07/30/2024 3:46 PM [facility] Chloride 101 96 - 110 mmol/L LAB CHEMISTRY METHOD 07/30/2024 3:46 PM [facility] CO2 24 21 - 32 mmol/L LAB CHEMISTRY METHOD 07/30/2024 3:46 PM [facility] Anion Gap 12(H) 3 - 11 LAB CHEMISTRY METHOD 07/30/2024 3:46 PM [facility] Glucose 161(H) 70 - 100 mg/dL LAB CHEMISTRY METHOD 07/30/2024 3:46 PM [facility] BUN 6 5 - 25 mg/dL LAB CHEMISTRY METHOD 07/30/2024 3:46 PM [facility] Creatinine 0.85 0.70 - 1.30 mg/dL LAB CHEMISTRY METHOD 07/30/2024 3:46 PM [facility] eGFR 100 >=60 mL/min/1. 73m2 LAB CHEMISTRY METHOD 07/30/2024 3:46 PM [facility] Comment:Calculation based on the??Chronic Kidney Disease Epidemiology Collaboration (CKD-EPI) equation refit??without adjustment for race. BUN/Creatinine Ratio 7.1 LAB CHEMISTRY METHOD 07/30/2024 3:46 PM [facility] Calcium 9.0 8.5 - 10.5 mg/dL LAB CHEMISTRY METHOD 07/30/2024 3:46 PM EDT [facility] AST (SGOT) 39 10 - 42 unit/L LAB CHEMISTRY METHOD 07/30/2024 3:46 PM EDT [facility] ALT (SGPT) 27 10 - 60 unit/L LAB CHEMISTRY METHOD 07/30/2024 3:46 PM EDT [facility] Alkaline Phosphatase 132(H) 42 - 121 unit/L LAB CHEMISTRY METHOD 07/30/2024 3:46 PM EDT [facility] Total Protein 6.6 6.0 - 8.0 g/dL LAB CHEMISTRY METHOD 07/30/2024 3:46 PM EDT [facility] Albumin 2.9(L) 3.2 - 5.0 g/dL LAB CHEMISTRY METHOD 07/30/2024 3:46 PM EDT [facility] Total Bilirubin 0.9 0.0 - 1.4 mg/dL LAB CHEMISTRY METHOD 07/30/2024 3:46 PM EDT [facility] Blood Venous blood specimen / Unknown Venipuncture / Unknown 07/30/2024 10:04 AM EDT 07/30/2024 10:04 AM EDT Lisa Yoo [employer] LAB BLOOD ORDERABLES Cathleen l Result [facility] [address] [place] [address], * Chlamydia trachomatis and Neisseria gonorrhoeae molecular study (06/25/2024 12:00 AM EST) Neisseria gonorrhoeae PCR Negative Negative LAB MOLECULAR DIAGNOSTICS METHOD 06/25/2024 5:36 PM EST [facility] [facility] Chlamydia trachomatis PCR Negative Negative LAB MOLECULAR DIAGNOSTICS METHOD 06/25/2024 5:36 PM EST [facility] Urine Urethral structure / Unknown Non-blood Collection / Unknown 06/25/2024 06/25/2024 2:34 PM EST Jose Covarrubias MD LAB MICROBIOLOGY - GENERAL ORDER LAXMI Final Result [facility] [address] [place] [address], [place] [phone] * Urine Albumin Creatinine Ratio (12/18/2023) [facility] Urine Albumin Creatinine Ratio abstracted Historical Provider HEALTH MAINTENANCE Final Result * Lipid panel (12/05/2023) [facility] Cholesterol 105 0 - 200 mg/dL Blood Venous blood specimen / Unknown Result [facility] Provider LAB BLOOD ORDERABLES Cathleen l Result * Diabetes Foot Exam (04/02/2023) [facility] Diabetes: Annual Foot Exam abstracted Historical Provider HEALTH MAINTENANCE Final Result * HIV Screening (05/03/2022) [facility] HIV Screening abstracted Result [facility] Provider HEALTH MAINTENANCE Final Result * Colonoscopy (08/03/2021) [facility] Colonoscopy no interpretation , abstracted Anatomical Region Laterality Modality Other Historical Provider HEALTH MAINTENANCE Final Result from Last 3 Months or Most Recently Relevant to Health Maintenance Insurance [id number] Advance Directives Documents on File Type Date Recorded 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
--- OUTSIDE RECORDS SUMMARY | 2024-09-03 09:50 | XMS_ITS | Encounter Summary ---
Author Organization [facility] Address [address] [place] [address] Care Team Providers Care Sas Programmer Name Role Phone Sriram Moreland MD Primary Care Provider [phone] Encounter Details Date Type Department Care Team (Late Contact Info) Description 06/25/2024 Lab Requisition [facility] - Main Lab [address] [facility] [place] [id number] Jose Covarrubias MD [address] [address] Dysuria Social History Tobacco Use [...] EDT Appointment Ultrasound - [address] [place], [place] [phone] 10/01/2024 11:30 AM EDT Office Visit Internal Medicine - [address] [place], [place] [phone] Sriram Moreland MD [address] [place] [address] 10/05/2024 1:30 PM EDT Office Visit Internal Medicine - [address] [phone] Ele Lyon NP [address] [place] [address] documented as of this encounter Procedures Procedure Name Priority Date/Time Associated Diagnosis Comments CHLAMYDIA TRACHOMATIS AND NEISSERIA GONORRHOEAE PCR Routine 06/25/2024 12:00 AM EST Dysuria documented in this encounter Results * Chlamydia trachomatis and Neisseria gonorrhoeae molecular study (06/25/2024 12:00 AM EST) Neisseria gonorrhoeae PCR Negative Negative LAB MOLECULAR DIAGNOSTICS METHOD 06/25/2024 5:36 PM EST [facility] Chlamydia trachomatis PCR Negative Negative LAB MOLECULAR DIAGNOSTICS METHOD 06/25/2024 5:36 PM EST [facility] Urine Urethral structure / Unknown Non-blood Collection / Unknown 06/25/2024 06/25/2024 2:34 PM EST us Jose Covarrubias MD LAB MICROBIOLOGY - GENERAL ORDER LAXMI Final Result [facility] [address] [place] [address], documented in this encounter Visit Diagnoses Diagnosis Dysuria documented in this encounter Care Teams Sas Programmer Relationship Specialty Start Date End Date Sriram Moreland MD [address] [place] [id number] PCP - General Internal Medicine 01/18/20 documented as of this encounter
--- OUTSIDE RECORDS SUMMARY | 2024-09-03 09:50 | XMS_ITS | Clinical Summary ---
Author Organization [facility] Address [address] [place] [address] Care Team Providers Care Cut Off Saw Operator Metal Name Role Phone Sriram Moreland MD Primary Care Provider [phone] Medications No known medications Active Problems No [...] age to complete this topic Care Teams Cut Off Saw Operator Metal Relationship Specialty Start Date End Date Sriram Moreland MD [address] [place] [address] PCP - General Internal Medicine 05/15/22
[2024-09-03 17:43] LABS: MANUAL DIFF FLAG NO
[2024-09-03 17:49] LABS: Basophils Percent Auto 0.8 % (0-2); Eosinophils Absolute Auto 0.1 X10*3/uL (0.0-0.4); Eosinophils Percent Auto 5.2 % (0-4); Hematocrit 36.3 % (42.0-52.0); Hemoglobin 12.2 g/dl (14.0-18.0); Lymphocytes Absolute Auto 0.9 X10*3/uL (1.2-4.9); Lymphocytes Percent Auto 34.9 % (20-40); Mean Corpuscular HGB Conc 33.6 g/dl (31.0-36.0); Mean Corpuscular Hemoglobin 34.8 pg (27.0-33.0); Mean Corpuscular Volume 103.4 fL (80.0-98.0); Mean Platelet Volume 11.3 fL (9.4-12.4); Monocytes Absolute Auto 0.3 X10*3/uL (0.1-1.2); Monocytes Percent Auto 10.7 % (2-11); Neutrophils Absolute Auto 1.2 x10*3/uL (2.0-8.3); Neutrophils Percent Auto 48.4 % (45-73); Platelet Count 119 X10*3/uL (160-400); Red Blood Count 3.51 X10*6/uL (4.60-5.80); Red Cell Distribution Width 12.6 % (11.0-16.0)
[2024-09-03 18:07] LABS: Alanine Aminotransferase 21 U/L (0-40); Anion Gap 15 (12-20); Aspartate Amino Transferase 52 U/L (5-37); Bilirubin Total 0.9 mg/dL (0.0-1.0); Blood Urea Nitrogen 6 mg/dL (9-16); Calcium 8.7 mg/dL (8.4-10.2); Carbon Dioxide 25 mmol/L (22-29); Chloride 101 mmol/L (96-108); Estimated Glomerular Filt Rate > 60; Glucose Random 180 mg/dL (60-115); Magnesium 1.8 mg/dL (1.6-2.6); Potassium 3.9 mmol/L (3.3-5.1); Sodium 137 mmol/L (135-145); Total Protein 6.3 g/dL (6.5-8.0)
[2024-09-03 18:18] LABS: Alkaline Phosphatase 115 U/L (39-117)
[2024-09-03 18:21] LABS: TSH reflex Free T4 1.77 uIU/mL (0.32-4.0)
[2024-09-03 18:46] LABS: White Blood Count 2.5 X10*3/uL (4.8-10.8)
[2024-09-03 18:47] LABS: Folate > 20.0 ng/mL (> or = 4.0); Vitamin B12 795 pg/mL (200-900)
[2024-09-03 19:04] LABS: Erythrocyte Sedimentation Rate 9 MM/HR (0-15)
[2024-09-04 05:37] LABS: CRP High Sensitivity 0.2 mg/L
[2024-09-07 19:48] LABS: Nicotinamide 52 ng/mL (see note); Vit B3 - Nicotinic Acid <20 ng/mL (see note)
[2024-09-08 16:03] LABS: Vitamin D 25-OH, D2 <4 ng/mL; Vitamin D 25-OH, D3 51 ng/mL; Vitamin D 25-OH, Total 51 ng/mL (30-100)
[2024-09-08 19:08] LABS: Prot Elec - Albumin 3.3 g/dL (3.8-4.8); Prot Elec - Alpha1 0.3 g/dL (0.2-0.3); Prot Elec - Alpha2 0.5 g/dL (0.5-0.9); Prot Elec - Beta 1 0.4 g/dL (0.4-0.6); Prot Elec - Beta 2 0.6 g/dL (0.2-0.5); Prot Elec - Gamma 1.1 g/dL (0.8-1.7); Prot Elec - Total Protein 6.2 g/dL (6.1-8.1)
[2024-09-10 02:39] LABS: Methylmalonic Acid 110 nmol/L (55-335)
[2024-09-10 15:09] LABS: Vitamin B6 80.2 ng/mL (2.1-21.7)
== END 2024-09-03 08:59 | disposition home or self-care (01) ==
LOC: HO.HKASLDS 08:58
PROVIDERS: Visit Provider Nurse Practitioner Family
DX: E87.1 Hypo-osmolality and hyponatremia (principal); G60.8 Other hereditary and idiopathic neuropathies; D64.9 Anemia, unspecified; G62.9 Polyneuropathy, unspecified; Z78.9 Other specified health status
CPT/HCPCS: 36415; 80053; 82306; 82607; 82746; 83735; 83921; 84165; 84207; 84443; 84591; 85025; 85652; 86141

== ENCOUNTER 2024-09-28 | Outpatient (REF) | payer OTHER, SELFPAY ==
--- OUTSIDE RECORDS SUMMARY | 2024-09-29 14:07 | XMS_ITS | Encounter Summary ---
Author Organization [facility] Address [address] [place] [address] Care Team Providers Care Electronics Test Engineer Name Role Phone Sriram Moreland MD Primary Care Provider [phone] Encounter Details Date Type Department Care Team (Late Contact Info) Description 06/25/2024 Lab Requisition [facility] - Main Lab [address] [facility] [place] [address] Jose Covarrubias MD [address] [address] Dysuria Social History Tobacco Use [...] AM EDT Office Visit Internal Medicine - [address] [phone] Sriram Moreland MD [address] [place] [address] 10/05/2024 1:30 PM EDT Office Visit Internal Medicine - [address] [phone] Ele Lyon, EM [address] [place] [address] documented as of this encounter Procedures Procedure Name Priority Date/Time Associated Diagnosis Comments CHLAMYDIA TRACHOMATIS AND NEISSERIA GONORRHOEAE PCR Routine 06/25/2024 12:00 AM EST Dysuria documented in this encounter Results * Chlamydia trachomatis and Neisseria gonorrhoeae molecular study (06/25/2024 12:00 AM EST) Neisseria gonorrhoeae PCR Negative Negative LAB MOLECULAR DIAGNOSTICS METHOD 06/25/2024 5:36 PM EST [facility] Chlamydia trachomatis PCR Negative Negative LAB MOLECULAR DIAGNOSTICS METHOD 06/25/2024 5:36 PM EST [facility] Urine Urethral structure / Unknown Non-blood Collection / Unknown 06/25/2024 06/25/2024 2:34 PM EST us Jose Covarrubias MD LAB MICROBIOLOGY - GENERAL ORDER LAXMI Final Result [facility] [address] [place] [address], documented in this encounter Visit Diagnoses Diagnosis Dysuria documented in this encounter Care Teams Electronics Test Engineer Relationship Specialty Start Date End Date Sriram Moreland MD [address] [place] [id number] PCP - General Internal Medicine 01/18/20 documented as of this encounter
--- OUTSIDE RECORDS SUMMARY | 2024-09-29 14:08 | XMS_ITS | Clinical Summary ---
Author Organization [place] [address] [facility] Building Address [address] [place] [address] Phone Care Team Providers Care Minister Of Religion Name Role Phone Sriram Moreland MD Primary Care Provider [phone] Allergies Active Allergy Reactions Criticality Noted Date [...] 1 4 Active mirtazapine (REMERON) 7.5 mg tabletIndication s:Insomnia, unspecified type Take 1 tablet (7.5 mg total) by mouth at bedtime. at bedtime. 90 tablet 3 5 Active ciclopirox (LOPROX) 0.77 % creamIndications :Tinea pedis of both feet,Tinea corporis Apply thin layer to affected area BID for 2 weeks then stop. 30 g 5 Active fluconazole (DIFLUCAN) 150 mg tablet Take 2 tablets by mouth at the same time once weekly until resolution, up to 4 weeks. 8 tablet 5 Active multivitamin with minerals (Multiple Vitamin-Minerals ) tablet Take 1 tablet by mouth 1 (one) time each day. 90 tablet 5 Active gabapentin (NEURONTIN) 300 mg capsule Take 1 cap before sleep 90 capsule 5 Active allopurinoL (ZYLOPRIM) 300 mg tablet Take 1 tablet (300 mg total) by mouth 1 (one) time each day. 90 tablet 1 5 Active pancrelipase, Srj-Jkyn-Ezfk, (Creon) 24,000-76,000 -120,000 unit capsule Take 1 capsule (24,000 Units total) by mouth 3 (three) times a day with meals. 270 capsule 1 5 Active cyanocobalamin (VITAMIN B-12) 500 mcg tablet Take 1 tablet (500 mcg total) by mouth 1 (one) time each day. for 30 days 90 tablet 1 5 Active Active Problems Problem Noted Date Diagnosed Date [...] Type 2 diabetes mellitus wit h microalbuminuria ([facility] V24, [facility] V28) 04/17/2021 Type 2 diabetes mellitus wit h diabetic neuropathy ([facility] V24, [facility] V28) 06/17/2020 Assessment & Plan [...] Encounters Date Type Department Care Team Description 09/04/2024 8:15 AM EDT - 09/04/2024 11:59 PM EDT Hospital Encounter [facility] [address] [place] [id number] Fatty liver Discharge Disposition: Home or Self Care 08/17/2024 2:20 PM EDT Office Visit Gastroenterology - [place] [address] [place] [address] Jan Hoover PA Fatty liver (Primary Dx); Elevated alkaline phosphatase level; Pancreatic insufficiency 08/11/2024 Telephone Gastroenterology - [place] [address] [facility] [address] [place] [address] Jan Hoover PA 07/11/2024 9:45 AM EST Office Visit Walk-In Clinic [facility] [address] [place] [address] Jose Ocasio PA Tinea versicolor (Primary Dx) 07/10/2024 Telephone Internal Medicine - [address] [phone] Sriram Moreland MD Rash 07/06/2024 2:30 PM EST Office Visit Internal Medicine - [address] [phone] Ele Lyon, EM Tinea pedis of both feet (Primary Dx); Tinea corporis; Insomnia, unspecified type from Last 3 Months Immunizations Name Administration [...] Surgery Date Site/Laterality Comments VASECTOMY 2002 PROCEDURE: AK VASECTOMY UNI/BI SPX W/POSTOP SEMEN EXAMS COLONOSCOPY 03/12/2014 PROCEDURE: HISTORICAL COLONOSCOPY; COMMENT: Urgent procedure as inpt at [facility]; sub-optimal prep; not an adequate screening exam. COLONOSCOPY 03/21/2010 PROCEDURE: HISTORICAL COLONOSCOPY; COMMENT: Up to cecum, good preparation, 2 rectal polyps removed: hyperplastic UPPER GASTROINTESTINAL ENDOSCOPY 03/09/2014 PROCEDURE: AK UPPER GI ENDOSCOPY PERFORMED; COMMENT: Rickie; normal. [...] appetite Esophageal reflux DX:Esophageal reflux Chronic pancreatitis (CMS/HC C V24, CMS/HCC V28) DX:Chronic pancreatitis (HCC ) Lung nodule 07/23/2023 DX:Lung nodule Family History Medical History Relation Name Comments Asthma Brother 1 Hypertension Brother 2 Colon polyps Father Hypertension Father HTN, 3 adenomat ous transverse colon polyps Stroke Maternal Grandfather Glaucoma Maternal Grandmother CRF-otis lysis Diabetes Mother emphysema, Copd , smoker, normal pkelx-3-pejapshdmej level Other: TB Paternal Grandmother Relation Name [...] AM EDT Office Visit Internal Medicine - [address] [phone] Sriram Moreland MD [address] [place] [phone] 10/05/2024 1:30 PM EDT Office Visit Internal Medicine - [address] [phone] Ele Lyon NP [address] [place] [address] Health Maintenance Due Date Last Done Comments [...] of Health Screening 04/21/2022 COVID-19 Vaccine ( - season) 2024 06/23/2021, 08/25/2020, 07/29/2020 Diabetes: Annual [...] Procedure Name Priority Date/Time Associated Diagnosis Comments EXTERNAL CLINICAL LAB 09/22/2024 US ABDOMEN LIMITED Routine 09/04/2024 8: 55 AM EDT Fatty liver VITAMIN B5 Routine 08/06/2024 10:33 AM EDT [...] EDT Hypo-osmolality and hyponatremia Anemia, unspecified Polyneuropathy URINE ALBUMIN CREATININE RATIO Routine 12/18/2023 LIPID PANEL Routine 12/05/2023 DIABETES FOOT EXAM Routine 04/02/2023 HIV SCREENING Routine 05/03/2022 COLONOSCOPY Routine 08/03/2021 from Last 3 Months or Most Recently Relevant to Health Maintenance Results * External clinical lab (09/22/2024) us Provider [facility] LAB BLOOD ORDERABLES Fin al Result * US Abdomen Limited (09/04/2024 8:55 AM EDT) Anatomical Region Laterality Modality Body Ultrasound 09/04/2024 11:1 0 AM EDT Impressions 09/04/2024 11:21 AM EDT Hepatomegaly with sonographic features compatible with hepatic steatosis. -------- FINAL REPORT -------- Dictated By: Jazmyne Kumar Dictated Date: 09/04/2024 11:10 ET Assigned Physician: Jazmyne Kumar Reviewed and Electronically Signed By: Jazmyne Kumar Signed Date: 09/04/2024 11:21 ET Workstation ID: [id number] Transcribed By: Self Edit Transcribed Date: 09/04/2024 11:10 ET Narrative 09/04/2024 11:21 AM EDT EXAM: ??US ABDOMEN LIMITED TECHNIQUE: US Abdominal limited right upper quadrant. HISTORY: fatty liver COMPARISON: Abdominal MRI on March 04, 2024. ??Ultrasound on February 12, 2024. FINDINGS: Pancreas: Not well visualized due to overlying bowel gas. ??Visualized portion of the main pancreatic duct measures 0.7 cm, similar to prior study. Liver: ??Hepatomegaly measuring 16.8 cm. ??Diffusely increased echogenicity compatible with hepatic steatosis. ??No focal lesions demonstrated. Main Portal Vein: Patent with normal direction of flow. Gallbladder: Unchanged 0.4 cm echogenic focus that could represent a small polyp. No gallstones or gallbladder wall thickening. Biliary: No biliary ductal dilatation. The common bile duct measures 0.5 cm. Right Kidney: Size: 10.2 cm. No renal stones or hydronephrosis. Upper AORTA and IVC: Visualized upper portions of aorta and inferior vena cava are unremarkable. Procedure Note Jazmyne Kumar MD - 09/04/2024 EXAM: US ABDOMEN LIMITED TECHNIQUE: US Abdominal limited right upper quadrant. HISTORY: fatty liver COMPARISON: Abdominal MRI on March 04, 2024. Ultrasound on 2023. FINDINGS: Pancreas: Not well visualized due to overlying bowel gas. Visualizedportion of the main pancreatic duct measures 0.7 cm, similar to priorstudy. Liver: Hepatomegaly measuring 16.8 cm. Diffusely increased echogenicitycompatible with hepatic steatosis. No focal lesions demonstrated. Main Portal Vein: Patent with normal direction of flow. Gallbladder: Unchanged 0.4 cm echogenic focus that could represent a smallpolyp. No gallstones or gallbladder wall thickening. Biliary: No biliary ductal dilatation. The common bile duct measures 0.5cm. Right Kidney: Size: 10.2 cm. No renal stones or hydronephrosis. Upper AORTA and IVC: Visualized upper portions of aorta and inferior venacava are unremarkable. IMPRESSION: Hepatomegaly with sonographic features compatible with hepaticsteatosis. -------- FINAL REPORT -------- Dictated By: Jazmyne Kumar Dictated Date: 09/04/2024 11:10 ET Assigned Physician: Jazmyne Kumar Reviewed and Electronically Signed By: Jazmyne Kumar Signed Date: 09/04/2024 11:21 ET Workstation ID: [id number] Transcribed By: Self Edit Transcribed Date: 09/04/2024 11:10 ET us Jan [facility] US PROCEDURES Final Result * Hepatitis panel, acute with reflex to confirmation (08/06/2024 10:33 AM EDT) Hepatitis B Surface Ag Negative Negative LAB CHEMISTRY METHOD 08/06/2024 12:54 PM EDT [facility] Hepatitis A Antibody IgM Negative Negative LAB CHEMISTRY METHOD 08/06/2024 12:54 PM EDT [facility] Hep B Core IgM Negative Negative LAB CHEMISTRY METHOD 08/06/2024 12:54 PM EDT [facility] Hepatitis C Antibody Negative Negative LAB CHEMISTRY METHOD 08/06/2024 12:54 PM EDT [facility] Blood Venous blood specimen / Unknown Venipuncture / Unknown 08/06/2024 10:33 AM EDT 08/06/2024 11:05 AM EDT Sriram Moreland MD LAB BLOOD ORDERABLES Cathleen l Result Performing Organization Address City/[facility]/ZIP Co de Phone Number [facility] [address] [place] [address], [place] [phone] * Vitamin B5 (08/06/2024 10:33 AM EDT) Vitamin B5 (Panththenic Acid) 197 <275 ng/mL 08/11/2024 1:56 PM EDT [facility] Comment: This test was developed and its analytical performance characteristics have been determined by [facility] [place]. It has not been cleared or approved by the FDA. This assay has been validated pursuant to the CLIA regulations and is used for clinical purposes. Test Performed by [facility], [place], [address] [place] [address] Mik Santiago M.D., Ph.D., Director of Laboratories , CLIA [id number] Blood Venous blood specimen / Unknown Venipuncture / Unknown 08/06/2024 10:33 AM EDT 08/06/2024 11:05 AM EDT Lisa ARRINGTONP LAB BLOOD ORDERABLES Cathleen l Result [facility] [address] [place] [address] * Alkaline phosphatase, isoenzymes (08/06/2024 10:33 AM EDT) Alkaline Phosphatase 108 35 - 144 U/L 08/13/2024 4:39 PM EDT [facility] Comment: Test Performed at: [facility] [address] [place], [place] ??[phone] ? I Theresa ALCANTARA, PhD, JAN Alk [...] EDT [facility] Comment: Test Performed at: [facility] [address] [place] [address] ??[phone] ? I Theresa ALCANTARA, PhD, JAN Alk Phos Isoenzyme Macrohepatic TNP 08/13/2024 4:39 PM EDT [facility] Alkaline Phosphatase Isoenzymes Interpretation TNP 08/13/2024 4:39 PM EDT [facility] Blood Venous blood specimen / Unknown Venipuncture / Unknown 08/06/2024 10:33 AM EDT 08/06/2024 11:07 AM EDT Sriram Moreland MD LAB BLOOD ORDERABLES Edit ed Result - Final [facility] [address] [place] [address] * Hemoglobin A1c (08/06/2024 10:33 AM EDT) Hemoglobin A1C 6.1 <6.5 % LAB CHEMISTRY METHOD 08/06/2024 1:56 PM EDT [facility] Mean Bld Glu Estim. 128 mg/dL LAB CHEMISTRY METHOD 08/06/2024 1:56 PM EDT [facility] Blood Venous blood specimen / Unknown Venipuncture / Unknown 08/06/2024 10:33 AM EDT 08/06/2024 11:06 AM EDT us Sriram Moreland MD LAB BLOOD ORDERABLES Cathleen l Result Performing Organization Address City/[facility]/ZIP Co de Phone Number [facility] [address] [place] [address], [place] [phone] * (ABNORMAL) Bilirubin, direct (08/06/2024 10:33 AM EDT) Bilirubin, Direct 0.6(H) 0.0 - 0.3 mg/dL LAB CHEMISTRY METHOD 08/06/2024 11:56 AM EDT [facility] Blood Venous blood specimen / Unknown Venipuncture / Unknown 08/06/2024 10:33 AM EDT 08/06/2024 11:05 AM EDT Sriram oMreland MD LAB BLOOD ORDERABLES Cathleen l Result Performing Organization Address City/[facility]/ZIP Co de Phone Number [facility] [address] [place] [address], [place] [phone] * (ABNORMAL) Bilirubin duplicate procedure to order (07/30/2024 10:04 AM EDT) Total Bilirubin 0.9 0.0 - 1.4 mg/dL LAB CHEMISTRY METHOD 07/30/2024 3:46 PM EDT [facility] Bilirubin, Direct 0.5(H) 0.0 - 0.3 mg/dL LAB CHEMISTRY METHOD 07/30/2024 3:46 PM EDT [facility] Bilirubin, Indirect 0.4 0.0 - 1.1 mg/dL LAB CHEMISTRY METHOD 07/30/2024 3:46 PM EDT [facility] Blood Venous blood specimen / Unknown Venipuncture / Unknown 07/30/2024 10:04 AM EDT 07/30/2024 10:04 AM EDT Sriram Moreland MD LAB BLOOD ORDERABLES Cathleen l Result Performing Organization Address City/[facility]/ZIP Co de Phone Number [facility] [address] [place] [address], [place] [phone] * Thyroid stimulating hormone with reflex to free t4 and free t3 (07/30/2024 10:04 AM EDT) [facility] TSH 2.18 0.40 - 4.00 mcIU/mL LAB CHEMISTRY METHOD 07/30/2024 3:23 PM EDT [facility] Blood Venous blood specimen / Unknown Venipuncture / Unknown 07/30/2024 10:04 AM EDT 07/30/2024 10:04 AM EDT Lisa Yoo [facility] LAB BLOOD ORDERABLES Cathleen l Result Performing Organization Address [facility] Co de Phone Number [facility] [address] [place] [address], [place] [phone] * (ABNORMAL) Vitamin B12 and folate (07/30/2024 10:04 AM EDT) [facility] Vitamin B-12 934(H) 250 - 900 pcg/mL LAB CHEMISTRY METHOD 07/30/2024 3:46 PM EDT [facility] Folate >20.0(H) 2.8 - 17.0 ng/ml LAB CHEMISTRY METHOD 07/30/2024 3:46 PM EDT [facility] Blood Venous blood specimen / Unknown Venipuncture / Unknown 07/30/2024 10:04 AM EDT 07/30/2024 10:04 AM EDT Lisa Yoo [facility] BLOOD ORDERABLES Cathleen l Result Performing Organization Address City/[facility]/ZIP Co de Phone Number [facility] [address] [place] [address], [place] [phone] * (ABNORMAL) CBC auto differential (07/30/2024 10:04 AM EDT) [facility] WBC 3.4(L) 4.8 - 10.8 K/mcL LAB HEMETOLOGY METHOD 07/30/2024 11:33 AM [facility] RBC 3.70(L) 4.50 - 5.50 M/mcL LAB HEMETOLOGY METHOD 07/30/2024 11:33 AM [facility] Hemoglobin 12.8(L) 13.5 - 17.5 g/dL LAB HEMETOLOGY METHOD 07/30/2024 11:33 AM [facility] Hematocrit 38.9(L) 42.0 - 54.0 % LAB HEMETOLOGY METHOD 07/30/2024 11:33 AM [facility] MCV 104.3(H) 79.0 - 98.0 FL LAB HEMETOLOGY METHOD 07/30/2024 11:33 AM [facility] MCH 34.3(H) 27.0 - 32.0 pcg LAB HEMETOLOGY METHOD 07/30/2024 11:33 AM [facility] MCHC 32.9 32.0 - 37.0 g/dL LAB HEMETOLOGY METHOD 07/30/2024 11:33 AM [facility] RDW 12.2 11.0 - 15.0 % LAB HEMETOLOGY METHOD 07/30/2024 11:33 AM [facility] Platelets 140 130 - 400 K/mcL LAB HEMETOLOGY METHOD 07/30/2024 11:33 AM [facility] MPV 11.3(H) 7.0 - 11.0 FL LAB HEMETOLOGY METHOD 07/30/2024 11:33 AM [facility] NRBC 0.0 <1.0 % LAB HEMETOLOGY METHOD 07/30/2024 11:33 AM [facility] NRBC Absolute 0.00 <0.10 K/mcL LAB HEMETOLOGY METHOD 07/30/2024 11:33 AM [facility] Neutrophils Relative 58.9 % LAB HEMETOLOGY METHOD 07/30/2024 11:33 AM [facility] Lymphocytes Relative 26.8 % LAB HEMETOLOGY METHOD 07/30/2024 11:33 AM [facility] Monocytes Relative 9.9 % LAB HEMETOLOGY METHOD 07/30/2024 11:33 AM [facility] Eosinophils Relative 3.2 % LAB HEMETOLOGY METHOD 07/30/2024 11:33 AM [facility] Basophils Relative 0.9 % LAB HEMETOLOGY METHOD 07/30/2024 11:33 AM [facility] Immature Granulocytes Relative 0.3 % LAB HEMETOLOGY METHOD 07/30/2024 11:33 AM [facility] Neutrophils Absolute 2.02 1.50 - 7.00 K/mcL LAB HEMETOLOGY METHOD 07/30/2024 11:33 AM [facility] Lymphocytes Absolute 0.92(L) 1.00 - 5.00 K/mcL LAB HEMETOLOGY METHOD 07/30/2024 11:33 AM [facility] Monocytes Absolute 0.34 0.20 - 1.00 K/mcL LAB HEMETOLOGY METHOD 07/30/2024 11:33 AM [facility] Eosinophils Absolute 0.11 0.00 - 0.50 K/mcL LAB HEMETOLOGY METHOD 07/30/2024 11:33 AM [facility] Basophils Absolute 0.03 0.00 - 0.20 K/mcL LAB HEMETOLOGY METHOD 07/30/2024 11:33 AM [facility] Immature Granulocytes Absolute 0.01 0.00 - 0.03 K/[facility] LAB HEMETOLOGY METHOD 07/30/2024 11:33 AM EDT [facility] Blood Venous blood specimen / Unknown Venipuncture / Unknown 07/30/2024 10:04 AM EDT 07/30/2024 10:04 AM EDT Lisa Yoo [facility] BLOOD ORDERABLES Cathleen l Result Performing Organization Address City/[facility]/ZIP Co de Phone Number [facility] [address] [place] [address], [place] [phone] * Methylmalonic acid, serum (07/30/2024 10:04 AM EDT) Methylmalonic Acid 0.15 <0.40 umol/L 08/04/2024 4:49 AM EDT [facility] Comment: If applicable, any drug confirmation testing reported here was developed and the performance characteristics determined by [facility]. This confirmation testing has not been cleared or approved by the FDA. The laboratory is regulated under CLIA as qualified to perform high-complexity testing. This test is used for patient testing purposes. It should not be regarded as investigational or for research. Test performed at [facility], [address] , [place], [place] ??[address] ? [phone] Marjorie Collins MD, PhD - Videogame T[employer] Blood Venous blood specimen / Unknown Venipuncture / Unknown 07/30/2024 10:04 AM EDT 07/30/2024 10:04 AM EDT Lisa Batistaington [facility] BLOOD ORDERABLES Cathleen l Result Performing Organization Address City/[facility]/ZIP Co de Phone Number [facility] [address] [place] [address] * Vitamin B3 (07/30/2024 10:04 AM EDT) Nicotinic Acid None Detected ng/mL 08/07/2024 4:50 PM EDT [facility] Comment: Reporting Limit: 10 ng/mL [...] from less than 10 ng/mL to about [address]168 ng/mL. After oral administration of an immediate-release [...] min. for 20 doses (over 3 hours): 77477 ng/mL This test should be considered as a therapeutic drug monitoring/toxicological test associated with niacin (Vitamin B3) supplementation. Care should be taken in the use of this test for basal Vitamin B3 determination. The supplied reference comment does not reflect normal, endogenous Vitamin B3 concentrations. Analysis by [employer] Performance Liquid Chromatography/ Tandem Mass Spectrometry (LC-MS/MS) Nicotinamide 13 ng/mL 08/07/2024 4:50 PM EDSharon DE LEÓN [...] None Detected ng/mL 08/07/2024 4:50 PM EDT [facility] Comment: Reporting Limit: 10 ng/mL Synonym(s): [...] developed and its performance characteristics determined by [facility]. ??It has not been cleared or approved by the [place] Food and Drug Administration. Digital data review may have taken place remotely by qualified [facility] staff utilizing a secure VPN connection for some or all of the reported results. This is in accordance with and follows CLIA regulations. Testing performed at [facility] [employer] [address] [place] [phone] CLIA [id number] Blood Venous blood specimen / Unknown Venipuncture / Unknown 07/30/2024 10:04 AM EDT 07/30/2024 10:04 AM EDT Lisa Yoo [facility] BLOOD ORDERABLES Cathleen l Result [facility] [address] [place] [address] * Vitamin D 25 hydroxy (07/30/2024 10:04 AM EDT) [facility] Vit D, 25-Hydroxy 44.7 30.0 - 80.0 ng/mL LAB CHEMISTRY METHOD 07/30/2024 3:23 PM EDT [facility] Blood Venous blood specimen / Unknown Venipuncture / Unknown 07/30/2024 10:04 AM EDT 07/30/2024 10:04 AM EDT Lisa Batistaington [facility] BLOOD ORDERABLES Cathleen l Result [facility] [address] [place] [address], [place] [phone] * Sedimentation rate (07/30/2024 10:04 AM EDT) Pathologist [facility] Sed Rate 10 0 - 20 mm/hr LAB HEMETOLOGY METHOD 07/30/2024 11:37 AM EDT [facility] Blood Venous blood specimen / Unknown Venipuncture / Unknown 07/30/2024 10:04 AM EDT 07/30/2024 10:04 AM EDT Lisa Yoo [facility] BLOOD ORDERABLES Cathleen l Result Performing Organization Address [facility]/ZIP Co de Phone Number [facility] [address] [place] [address], [place] [phone] * C reactive protein, high sensitivity (07/30/2024 10:04 AM EDT) [facility] CRP, High Sensitivity 0.69 mg/L LAB CHEMISTRY METHOD 07/30/2024 3:23 PM EDT [facility] Comment: Cardio CRP Relative Risk Categories ?? Low ? <1.0 mg/L ?? Average ?? 1.0 - 3.0 mg/L ?? High ?>3.0 mg/L Levels >10.0 mg/L should be ignored and repeated when the patient is stable and infection or inflammation is ruled out. Blood Venous blood specimen / Unknown Venipuncture / Unknown 07/30/2024 10:04 AM EDT 07/30/2024 10:04 AM EDT Lisa Yoo [facility] BLOOD ORDERABLES Cathleen l Result Performing Organization Address [facility] de Phone Number [facility] [address] [place] [address], [place] [phone] * Vitamin B1 (07/30/2024 10:04 AM EDT) [facility] Vitamin B1 Whole Blood 117 38 - 122 ug/L 08/04/2024 9:50 AM EDT [facility] Comment: This test was developed and the performance characteristics determined by [facility]. It has not been cleared or approved by the FDA. The laboratory is regulated under CLIA as qualified to perform high-complexity testing. This test is used for patient testing purposes. It should not be regarded as investigational or for research. Test performed at [facility], [address] [place], [place] ??[address] ? [phone] Marjorie Collins MD, PhD - Videogame Tester Blood Venous blood specimen / Unknown Venipuncture / Unknown 07/30/2024 10:04 AM EDT 07/30/2024 10:04 AM EDT Lisa Batistaington [facility] BLOOD ORDERABLES Cathleen l Result Performing Organization Address City/[facility]/ZIP Co de Phone Number [facility] [address] [place] [address] * (ABNORMAL) Vitamin B6 (07/30/2024 10:04 AM EDT) Vitamin B6 (Pyridoxine) Level 60(H) 5 - 50 ug/L 08/04/2024 11:57 AM EDT [facility] Comment: This test was developed and the performance characteristics determined by [facility]. It has not been cleared or approved by the FDA. The laboratory is regulated under CLIA as qualified to perform high-complexity testing. This test is used for patient testing purposes. It should not be regarded as investigational or for research. Test performed at [facility], [address] [place], [place] ??[address] ? [phone] Marjorie Collins MD, PhD - Videogame Tester Blood Venous blood specimen / Unknown Venipuncture / Unknown 07/30/2024 10:04 AM EDT 07/30/2024 10:04 AM EDT Lisa Yoo [facility] BLOOD ORDERABLES Cathleen l Result [facility] [address] [place] [address] * (ABNORMAL) Magnesium (07/30/2024 10:04 AM EDT) Magnesium 1.6(L) 1.9 - 2.6 mg/dL LAB CHEMISTRY METHOD 07/30/2024 3:23 PM EDT [facility] Blood Venous blood specimen / Unknown Venipuncture / Unknown 07/30/2024 10:04 AM EDT 07/30/2024 10:04 AM EDT Lisa Yoo [facility] BLOOD ORDERABLES Cathleen l Result Performing Organization Address [facility]/ZIP Co de Phone Number [facility] [address] [place] [address], [place] [phone] * (ABNORMAL) Homocysteine, total (07/30/2024 10:04 AM EDT) Homocysteine 19.5(H) 3.2 - 10.7 mcmol/L LAB CHEMISTRY METHOD 07/30/2024 3:46 PM EDT [facility] Blood Venous blood specimen / Unknown Venipuncture / Unknown 07/30/2024 10:04 AM EDT 07/30/2024 10:04 AM EDT Lisa Yoo [facility] LAB BLOOD ORDERABLES Cathleen l Result Performing Organization Address [facility] Co de Phone Number [facility] [address] [place] [address], [place] [phone] * (ABNORMAL) Folate (07/30/2024 10:04 AM EDT) Folate >20.0(H) 2.8 - 17.0 ng/ml LAB CHEMISTRY METHOD 07/30/2024 3:46 PM EDT [facility] Blood Venous blood specimen / Unknown Venipuncture / Unknown 07/30/2024 10:04 AM EDT 07/30/2024 10:04 AM EDT Lisa Yoo [facility] LAB BLOOD ORDERABLES Cathleen l Result Performing Organization Address City/[facility]/ZIP Co de Phone Number [facility] [address] [place] [address], [place] [phone] * (ABNORMAL) Comprehensive metabolic panel (07/30/2024 10:04 AM EDT) Sodium 137 133 - 145 mmol/L LAB CHEMISTRY METHOD 07/30/2024 3:46 PM [facility] Potassium 4.6 3.5 - 5.5 mmol/L LAB CHEMISTRY METHOD 07/30/2024 3:46 PM [facility] Chloride 101 96 - 110 mmol/L LAB CHEMISTRY METHOD 07/30/2024 3:46 PM [facility] CO2 24 21 - 32 mmol/L LAB CHEMISTRY METHOD 07/30/2024 3:46 PM [facility] Anion Gap 12(H) 3 - 11 LAB CHEMISTRY METHOD 07/30/2024 3:46 PM [facility] Glucose 161(H) 70 - 100 mg/dL LAB CHEMISTRY METHOD 07/30/2024 3:46 PM [facility] BUN 6 5 - 25 mg/dL LAB CHEMISTRY METHOD 07/30/2024 3:46 PM [facility] Creatinine 0.85 0.70 - 1.30 mg/dL LAB CHEMISTRY METHOD 07/30/2024 3:46 PM [facility] eGFR 100 >=60 mL/min/1. 73m2 LAB CHEMISTRY METHOD 07/30/2024 3:46 PM [facility] Comment:Calculation based on the??Chronic Kidney Disease Epidemiology Collaboration (CKD-EPI) equation refit??without adjustment for race. BUN/Creatinine Ratio 7.1 LAB CHEMISTRY METHOD 07/30/2024 3:46 PM [facility] Calcium 9.0 8.5 - 10.5 mg/dL LAB CHEMISTRY METHOD 07/30/2024 3:46 PM [facility] AST (SGOT) 39 10 - 42 unit/L LAB CHEMISTRY METHOD 07/30/2024 3:46 PM [facility] ALT (SGPT) 27 10 - 60 unit/L LAB CHEMISTRY METHOD 07/30/2024 3:46 PM EDT [facility] Alkaline Phosphatase 132(H) 42 - 121 unit/L LAB CHEMISTRY METHOD 07/30/2024 3:46 PM EDT [facility] Total Protein 6.6 6.0 - 8.0 g/dL LAB CHEMISTRY METHOD 07/30/2024 3:46 PM EDT [facility] Albumin 2.9(L) 3.2 - 5.0 g/dL LAB CHEMISTRY METHOD 07/30/2024 3:46 PM EDT [facility] Total Bilirubin 0.9 0.0 - 1.4 mg/dL LAB CHEMISTRY METHOD 07/30/2024 3:46 PM EDT [facility] Blood Venous blood specimen / Unknown Venipuncture / Unknown 07/30/2024 10:04 AM EDT 07/30/2024 10:04 AM EDT Lisa Yoo [employer]IC[employer] LAB BLOOD ORDERABLES Cathleen l Result [facility] [address] [place] [address], * Urine Albumin Creatinine Ratio (12/18/2023) Pathologist [facility] Urine Albumin Creatinine Ratio abstracted Historical Provider HEALTH MAINTENANCE Final Result * Lipid panel (12/05/2023) Pathologist [facility] Cholesterol 105 0 - 200 mg/dL Blood Venous blood specimen / Unknown Historical Provider LAB BLOOD ORDERABLES Cathleen l Result * Diabetes Foot Exam (04/02/2023) Pathologist [facility] Diabetes: Annual Foot Exam abstracted Historical Provider HEALTH MAINTENANCE Final Result * HIV Screening (05/03/2022) HIV Screening abstracted Historical Provider HEALTH MAINTENANCE Final Result * Colonoscopy (08/03/2021) HM Colonoscopy no interpretation , abstracted Anatomical Region Laterality Modality Other us Historical Provider HEALTH MAINTENANCE Final Result from Last 3 Months or Most Recently Relevant to Health Maintenance Insurance [email or web address] Advance Directives Documents on File Type Date Recorded 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
--- OUTSIDE RECORDS SUMMARY | 2024-09-29 14:08 | XMS_ITS | Clinical Summary ---
Author Organization [facility] Address [address] [place] [address] Care Team Providers Care Glassworker Name Role Phone Sriram Moreland MD Primary Care Provider [phone] Medications No known medications Active Problems No [...] age to complete this topic Care Teams Glassworker Relationship Specialty Start Date End Date Sriram Moreland MD [address] [place] [address] PCP - General Internal Medicine 05/15/22
[2024-10-02 12:43] LABS: PEU-PROT/CRE Ratio mg/mg NOTE (<0.100); PEU24-Albumin Urine 0 %; PEU24-Alpha 1 Globulin 0 %; PEU24-Alpha 2 Globulin 0 %; PEU24-Beta Globulin 0 %; PEU24-Gamma Globulin 0 %; Total Protein 24Hr Urine NOTE mg/24 h (<150); Total Protein/Creat Ratio 24h NOTE mg/g creat (<100)
== END 2024-09-28 00:01 | disposition home or self-care (01) ==
LOC: HO.HKASLDS
PROVIDERS: Visit Provider Nurse Practitioner Family
DX: G60.8 Other hereditary and idiopathic neuropathies (principal)
CPT/HCPCS: 82570; 84156; 84166

== ENCOUNTER 2025-01-26 13:52 | Outpatient (AMB) | payer OTHER, SELFPAY ==
[2025-01-26 14:02] VITALS: BP 120/70; PULSE 80; O2SAT 100; BMI 25.0
--- NOTE | 2025-01-26 14:02 | A.OFFVIS_ITS ---
Vital Signs 01/26/25 14:02 Height 5 ft 10 in Weight 174 lb BMI 25.0 BP 120/70 Pulse 80 Pulse Source Pulse Oximeter Pulse Oximetry (%) 100 Oxygen Delivery Method Room Air Intake Visit Reasons: 6 mo follow up Intake Note: Patient presents follow up neuropathy. Labs in chart Ad Compositor Required: No Accompanied by: Self / Same As Patient Allergies No Known Allergies Allergy (Verified 01/26/25 14:02) Medication List - Last Reconciled 01/26/25 by KRISTIN Ernst allopurinol 300 mg PO DAILY chlorpromazine 25 mg PO TID PRN cyanocobalamin (vitamin B-12) 500 mcg PO DAILY 30 days ferrous sulfate (Feosol) 325 mg PO DAILY nhoniu-gyfymvlg-hhamvnp 3,000-9,500- 15,000 unit (Creon) caps PO metformin ER 500 mg PO BID metoclopramide HCl 5 mg PO DAILY thiamine HCl (vitamin B1) 100 mg PO DAILY 30 days HPI Comments Details: 59-year-old male presenting for follow-up of BLE neuropathy and to discuss interval BLE EMG/NCS results. 09/03/2024 lab results showed mild anemia with H&H 12.2/36.3 %, mild thrombocytopenia with platelet count 119, ferritin 241, mildly elevated LFTs with AST/ALT 52/21 and alk-phos 115, low total protein 6.3, albumin 3.0, low vitamin B1 <6, elevated vitamin B6 80, with regular vitamin B12 795, folate > 20, and vitamin-D 51. 08/20/2024 BLE EMG/NCS: Electrodiagnostic evidence for symmetric distal sensorimotor polyneuropathy, predominantly axonal. Patient denies any interval medical history changes. However, he was started on Thorazine by Dr. Horta, an ENT specialist, for the management of recurrent bothersome hiccups. He states he takes the Thorazine only as needed, as he does not like how it makes him feel. His BLE EMG/NCS results were notable for symmetric distal sensory motor, primarily axonal, polyneuropathy. Patient states he has some pains in his bilateral calves through feet, which is stable on gabapentin 300 mg daily. He can be off balance at times. He denies BLE numbness or weakness. He denies interval falls. He continues to work for the [employer], and continues to avoid climbing ladders. Upon review of the above labs, patient was advised to hold any supplements containing vitamin B6, to start vitamin B1, and to continue vitamin B12, ferrous sulfate, and his Creon supplement. Patient encouraged to increase p.o. intake as able. Patient continues to consume alcohol on a regular basis. [facility] Medical History (Updated 01/26/25 @ 15:20 by KRISTIN Ernst) Weight loss Pancreatitis Hyperlipidemia Allergic rhinitis Gout Fatty liver Atypical chest pain Syncope Pancreatic mass Diabetes Surgical History H/O vasectomy Hx of colonoscopy Family History Father HTN (hypertension) Mother HTN (hypertension) Social History Alcohol intake: current Patient Tobacco Use Status: Never used Tobacco Review of Systems Const All systems reviewed & are unremarkable except as noted in HPI and below Physical Exam Vital Signs: Last Vital Signs Pulse 80 01/26/25 14:02 BP 120/70 01/26/25 14:02 Pulse Ox 100 01/26/25 14:02 Oxygen Delivery Method Room Air 01/26/25 14:02 BMI result Body Mass Index 25.0 Const General: cooperative and no acute distress Orientation/consciousness: patient oriented x3 HEENT Head: Yes normocephalic Resp Effort & Inspection: normal respiratory effort and able to speak in complete sentences Neuro Other: No tremor Slow to stand, slightly wider base, overall steady gait General: patient oriented x3, Normal light touch and pain sensation and CN's II- XI intact bilaterally Cognition (Neuro): normal cognition Gait exam (Neuro): Normal gait present Motor exam (neuro): 5/5 motor strength present throughout Deep tendon reflexes (DTR's): Right patellar reflex intensity grade: 1+ and Left patellar reflex intensity grade: 1+ Psych Appearance: grossly normal Mental Status: mental status grossly normal Speech and movement: Normal speech and movement present Affect: normal affect Attitude: cooperative Assessment & Plan Assessment & Plan (1) Peripheral neuropathy: Comment: 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 chronic alcohol intake Code(s): G62.9 - Polyneuropathy, unspecified Category: Medical Qualifiers: Peripheral neuropathy type: polyneuropathy, alcohol-induced Qualified Code(s): G62.1 - Alcoholic polyneuropathy (2) Anemia: Code(s): D64.9 - Anemia, unspecified Category: Medical Qualifiers: Anemia type: unspecified type Qualified Code(s): D64.9 - Anemia, unspecified (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 Continue gabapentin 300 mg daily at bedtime Continue vitamin B12 supplement 500 mcg daily Continue thiamine 100 mg p.o. daily Continue ferrous sulfate and Creon as ordered. Encouraged to eat several small, nutrient-dense meals throughout the day. If the patient is ready to consider reducing or stopping alcohol intake, we can make a referral to an outpatient comprehensive Care Clinic. Follow up with ENT for treatment of chronic hiccups. Pt to follow-up in 6 months or sooner prn. 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
--- OUTSIDE RECORDS SUMMARY | 2025-01-26 16:32 | XMS_ITS | Clinical Summary ---
Author Organization [facility] Address [address] [place] [address] Care Team Providers Care Recovery Engineer Name Role Phone Sriram Moreland MD Primary Care Provider [phone] Medications No known medications Active Problems No [...] 88 05/25/2022 8:10 AM EST Temperature 37.2 C (98.9 F) 05/25/2022 8:10 AM EST Respiratory Rate - - Oxygen Saturation 100% [...] Tdap) 08/04/2023 08/03/2013, 05/01/2006 Influenza Vaccine (#1) 2025 0, 02/29/2012, 02/21/2011, Additional history exists Pneumococcal Vaccine Aged Out 04/18/2021 No long er eligible based on patient's age to complete this topic RSV Ped < 20 months Aged Out No longe r eligible based on patient's age to complete this topic Care Teams Recovery Engineer Relationship Specialty Start Date End Date Sriram Moreland MD [address] [place] [address] PCP - General Internal Medicine 05/15/22
--- OUTSIDE RECORDS SUMMARY | 2025-01-26 16:32 | XMS_ITS | Encounter Summary ---
Author Organization [facility] Address [address] [place] [address] Care Team Providers Care Makeup Artist Name Role Phone Madyson Sanderson MD Primary Care Provider [phone] Reason for Visit * Reason Onset Date Comments Med Refill 12/29/2024 Encounter Details Date Type Department Care Team ([facility] st Contact Info) Description 12/29/2024 Telephone Gastroenterology - [place] 175 [facility] 175 [facility] [address] [place] [address] [phone] Perla Espinoza NP 175 [facility] [address] [place] [address] Social History Tobacco Use Types Packs/Day Years [...] on file documented as of this encounter Ordered Prescriptions Prescription Sig Dispense Quantity Refills Last Filled Start Date End Date pantoprazole (PROTONIX) 40 mg EC tablet Take 1 tablet (40 mg total) by mouth 1 (one) time each day before breakfast. Do not crush, chew, or split. 90 each 12/30/2024 01/26/2025 documented in this encounter Progress Notes * Hannah Ro - 12/29/2024 10:39 AM EDT Medication Refill request fax from [facility] : Medication : Pantoprazole SOD DR 40 MG TAB QTY 90 SIG: Take 1 tab by mouth daily in the am on empty stomach, wait 30 mins and then eat to activate medication TAI: 08/23/2022 -AARTI NOV: 04/02/2025 -Perla documented in this encounter Plan of Treatment Upcoming Encounters Date Type Department Care Team (Late st Contact Info) Description 04/02/2025 2:40 PM EST Office Visit Gastroenterology - [place] 175 [facility] [address] [phone] Perla Espinoza, EM [address] [address] 07/13/2025 9:00 AM EST Office Visit Internal Medicine - [address] [phone] Severino Martinez NP [address] [place] [id number] documented as of this encounter Visit Diagnoses Not on filedocumented in this encounter Discontinued Medications Medication Sig Discontinue Reason Start Date End Da te pantoprazole (PROTONIX) 40 mg EC tablet TAKE 1 TAB BY MOUTH DAILY IN THE AM ON EMPTY STOMACH, WAIT 30 MIN & THEN EAT TO ACTIVATE MEDICATION Reorder 09/23/2023 12/30/2024 documented as of this encounter Care Teams Makeup Artist Relationship Specialty Start Date End Date Madyson Sanderson MD [address] [place] [address] PCP - General Internal Medicine 01/07/25 documented as of this encounter
--- OUTSIDE RECORDS SUMMARY | 2025-01-26 16:32 | XMS_ITS | Encounter Summary ---
Author Organization [facility] Address [address] [place] [address] Care Team Providers Care News Reporter Name Role Phone Madyson Sanderson MD Primary Care Provider [phone] Encounter Details Date Type Department Care Team (Late st Contact Info) Description 06/25/[address] [facility] - Main Lab [address] [facility] [place] [address] Jose Covarrubias MD [address] [facility] [address] [place] [phone] Dysuria Social History Tobacco Use Types Packs/Day [...] Department Care Team (Late Contact Info) Description 04/02/2025 2:40 PM EST Office Visit Gastroenterology - [place] [address] [place] 175 [facility] [address] [place] [address] Perla Espinoza NP 175 [facility] [address] [place], [place] [phone] 07/13/2025 9:00 AM EST Office Visit Internal Medicine - [facility] [address] [place], [place] [phone] Severino Martinez NP [address] [place], [place] documented as of this encounter Procedures Procedure Name Priority Date/Time Associated Diagnosis Comments CHLAMYDIA TRACHOMATIS AND NEISSERIA GONORRHOEAE PCR Routine 06/25/2024 12:00 AM EST Dysuria documented in this encounter Results * Chlamydia trachomatis and Neisseria gonorrhoeae molecular study (06/25/2024 12:00 AM EST) Neisseria gonorrhoeae PCR Negative Negative LAB MOLECULAR DIAGNOSTICS METHOD 06/25/2024 5:36 PM EST [facility] Chlamydia trachomatis PCR Negative Negative LAB MOLECULAR DIAGNOSTICS METHOD 06/25/2024 5:36 PM EST [facility] Urine Urethral structure / Unknown Non-blood Collection / Unknown 06/25/2024 06/25/2024 2:34 PM EST us Jose Covarrubias MD LAB MICROBIOLOGY - GENERAL ORDER LAXMI Final Result [facility] [address] [place] [address], documented in this encounter Visit Diagnoses Diagnosis Dysuria documented in this encounter Care Teams News Reporter Relationship Specialty Start Date End Date Madyson Sanderson MD [address] [place], [place] PCP - General Internal Medicine 01/07/25 documented as of this encounter
--- OUTSIDE RECORDS SUMMARY | 2025-01-26 16:32 | XMS_ITS | Clinical Summary ---
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 at bedtime. 90 tablet 3 07/06/19 25 Active allopurinoL (ZYLOPRIM) 300 mg tablet Take 1 tablet (300 mg total) by mouth 1 (one) time each day. 90 tablet 1 08/21/19 25 Active pancrelipase, Cen-Xtqw-Dwxc, (Creon) 24,000-76,000 -120,000 unit capsule Take 1 capsule (24,000 Units total) by mouth 3 (three) times a day with meals. 270 capsule 1 08/21/19 25 Active cyanocobalamin (VITAMIN B-12) 500 mcg tablet Take 1 tablet (500 mcg total) by mouth 1 (one) time each day. for 30 days 90 tablet 1 08/21/19 25 Active chlorproMAZINE (THORAZINE) 25 mg tablet Take 1 tablet (25 mg total) by mouth 3 (three) times a day. 10/01/19 25 Active thiamine 100 mg tablet Take 1 tablet (100 mg total) by mouth 1 (one) time each day. 09/25/19 25 Active ciclopirox (LOPROX) 0.77 % creamIndicatio ns:Tinea pedis of both feet,Tinea corporis Apply thin layer to affected area BID for 2 weeks then stop. 30 g 10/06/19 25 Active metoprolol succinate (TOPROL-XL) 25 mg 24 hr tablet Take 1 tablet (25 mg total) by mouth 1 (one) time each day. Do not crush or chew. 30 each 5 10/30/19 25 025 Active multivitamin with minerals (Multiple Vitamin-Minera ls) tablet Take 1 tablet by mouth 1 (one) time each day. 90 tablet 1 11/03/19 25 Active gabapentin (NEURONTIN) 300 mg capsule TAKE 1 CAPSULE BY MOUTH EVERYDAY AT BEDTIME 90 capsule 11/17/19 25 Active metFORMIN XR (GLUCOPHAGE-XR ) 500 mg 24 hr tablet TAKE 1 TABLET BY MOUTH TWICE A DAY WITH FOOD 180 tablet 12/30/19 25 Active pantoprazole (PROTONIX) 40 mg EC tablet TAKE 1 TABLET BY MOUTH EVERY DAY BEFORE BREAKFAST DO NOT CRUSH CHEW OR SPLIT 90 tablet 01/27/20 25 Active pantoprazole (PROTONIX) 40 mg EC tablet TAKE 1 TAB BY MOUTH DAILY IN THE AM ON EMPTY STOMACH, WAIT 30 MIN & THEN EAT TO ACTIVATE MEDICATION 09/23/19 24 025 Discontinued(Re order) metFORMIN XR (GLUCOPHAGE-XR ) 500 mg 24 hr tablet TAKE 1 TABLET BY MOUTH TWICE A DAY WITH FOOD 180 tablet 1 04/29/20 24 025 Discontinued pantoprazole (PROTONIX) 40 mg EC tablet Take 1 tablet (40 mg total) by mouth 1 (one) time each day before breakfast. Do not crush, chew, or split. 90 each 12/31/19 25 025 Discontinued Active Problems Problem Noted Date Diagnosed Date Sinus tachycardia 10/29/2024 Lung nodule 07/23/2023 Assessment & Plan (04/07/2024 1:38 PM EST): I have ordered a CT chest again and advised patient to make sure he books appointment to follow-up on his lung nodule. Orders: CT Chest wo Contrast; Future Type 2 diabetes mellitus wit h microalbuminuria (CMS/HCC V24, CMS/HCC V28) 04/17/2021 Type 2 diabetes mellitus wit h diabetic neuropathy ([facility] V24, [facility] V28) 06/17/2020 Assessment & Plan (04/07/2024 1:39 [...] EST): Under control with allopurinol. Hyperlipidemia 06/18/2005 Resolved Problems Problem Noted Date Diagnosed Date Resolved Date Tinea pedis of both feet 07/06/2024 Tinea corporis 07/06/2024 10/05/2024 Insomnia 07/06/2024 10/05/2024 Syncope 08/20/2022 10/05/2024 Overview (02/25/2024): - Recurrent episodes that are [...] his current physiology Atypical chest pain 08/14/2022 10/06/19 25 Overview (02/25/2024): - Exercise stress echocardiogram on 06/06/2022: He exercised for just over 6 minutes to 95% of max predicted heart rate with no echocardiographic evidence of ischemia or infarction. He did not have any resting wall motion abnormalities and had a preserved ejection fraction of 55 to 60%. Last Assessment & Plan: Noncardiac-reassuring exercise stress echo, no further work-up Encounters Date Type Department Care Team Description 01/07/2025 9:45 AM EDT Office Visit Internal Medicine - [address] [phone] Severino Martinez NP Type 2 diabetes mellitus with diabetic neuropathy, without long-term current use of insulin (CMS/[facility] V24, CMS/[facility] V28) (Primary Dx); Lung nodule 12/29/2024 Telephone Gastroenterology - [place] [address] [facility] [place] [address] Perla Espinoza NP 11/13/2024 12:30 PM EDT Office Visit Internal Medicine - [address] [phone] Severino Martinez NP Hypertension, essential (Primary Dx) 10/26/2024 Telephone Internal Medicine - [address] [phone] Chana Barrera MA from Last 3 Months Immunizations Name Administration [...] Surgery Date Site/Laterality Comments VASECTOMY 2002 PROCEDURE: CA VASECTOMY UNI/BI SPX W/POSTOP SEMEN EXAMS COLONOSCOPY 03/12/2014 PROCEDURE: HISTORICAL COLONOSCOPY; COMMENT: Urgent procedure as inpt at [facility]; sub-optimal prep; not an adequate screening exam. COLONOSCOPY 03/21/2010 PROCEDURE: HISTORICAL COLONOSCOPY; COMMENT: Up to cecum, good preparation, 2 rectal polyps removed: hyperplastic UPPER GASTROINTESTINAL ENDOSCOPY 03/09/2014 PROCEDURE: CA UPPER [...] 2 diabetes mellitus wit h diabetic neuropathy ([facility]/HCC V24, [facility]/HCC V28) 06/17/2020 DX:Type 2 diabetes mellitus with diabetic neuropathy (HCC) Type 2 diabetes mellitus wit h microalbuminuria (CMS/HCC V24, [facility]/HCC V28) 04/17/2021 DX:Type 2 diabetes mellitus with microalbuminuria (HCC) Weight loss DX:Weight loss Pancreatitis DX:Pancreatitis Gastritis DX:Gastritis Weight loss, abnormal DX:Weight loss, abnormal Decreased appetite DX:Decreased appetite Esophageal reflux DX:Esophageal reflux Chronic pancreatitis (CMS/ C V24, [facility]/HCC V28) DX:Chronic pancreatitis (HCC ) Lung nodule 07/23/2023 DX:Lung nodule Sinus tachycardia 10/29/2024 Family History Medical History Relation Name Comments Asthma Brother 1 Hypertension Brother 2 Colon polyps Father Hypertension Father HTN, 3 adenomat ous transverse colon polyps Stroke Maternal Grandfather Glaucoma Maternal Grandmother CRF-otis lysis Diabetes Mother emphysema, Copd , smoker, normal hfray-0-qmqhhwoxqsh level Other: TB Paternal Grandmother Relation Name [...] Sign Reading Time Taken Comments Blood Pressure 101/57 01/07/2025 10:03 AM EDT Pulse 84 01/07/2025 10:03 AM EDT Temperature 36.5 C (97.7 F) 10/05/2024 1:27 PM EDT Respiratory Rate - - Oxygen Saturation 99% 07/11/2024 9:47 AM EST Inhaled Oxygen Concentration - - Weight 71.8 kg (158 lb 4.8 oz) 01/07/2025 10:03 AM EDT Height 177.8 cm (5' 10 ) 10/01/2024 11:23 AM EDT Body Mass Index 22.71 10/01/2024 11:23 AM EDT Plan of Treatment Upcoming Encounters Date Type Department Care Team (Late st Contact Info) Description 04/02/2025 2:40 PM EST Office Visit Gastroenterology - [place] [address] [facility] [address] [facility] [address] [place] [address] Perla Espinoza NP [address] [facility] [address] [place] [address] 07/13/2025 9:00 AM EST Office Visit Internal Medicine - [address] [phone] Severino Martinez, EM [address] [place] [phone] Health Maintenance Due Date Last Done Comments Diabetes: Annual Retina Eye Exam 1975 Hepatitis A Vaccines (1 of 2 - Risk 2-dose series) 1984 Hepatitis B Vaccines (1 of 3 - 19+ 3-dose series) 1984 Pneumococcal Vaccine: 50+ Years (2 of 2 - PCV) 04/18/2022 04/18/2021 Social Influencers of Health Screening 04/21/2022 Diabetes: Annual Foot Exam 04/02/2024 04/02/2023 Depression Screening 05/20/2024 COVID-19 Vaccine ( season) 2025 06/23/2021, 08/25/2020, 07/29/2020 Influenza Vaccine (#1) 2025 , 02/29/2012, 02/21/2011, Additional history exists Diabetes: Blood Sugar Control Test (HGBA1C) 07/10/2025 01/07/2025, 08/06/2024, 04/07/2024, Additional history exists Diabetes: Annual Urine Albumin-Creatinine Ratio (uACR) 01/07/2026 01/07/2025, 12/18/2023 Diabetes: Annual GFR (Glomerular Filtration Rate) 01/07/2026 01/07/2025, 07/30/2024, 04/07/2024, Additional history exists Hypertension/CHF/CAD Annual BMP Blood Test 01/07/2026 01/07/2025, 07/30/2024, 04/07/2024, Additional history exists Cholesterol Screening (Lipid Panel) 01/07/2030 01/07/2025, 12/05/2023, 07/01/2023 Colorectal Cancer Screening: Colonoscopy 08/04/2031 [...] Procedure Name Priority Date/Time Associated Diagnosis Comments LIVER FIBROSIS, FIBROTEST-ACTITEST PANEL Routine 01/07/2025 10:56 AM EDT Fatty liver CBC WITH AUTO DIFFERENTIAL Routine 01/07/2025 10:56 AM EDT Fatty liver CBC AND DIFFERENTIAL Routine 01/07/2025 10:56 AM EDT Fatty liver COMPREHENSIVE METABOLIC PANEL Routine 01/07/2025 10:56 AM EDT Fatty liver LIPID PANEL WITH REFLEX TO DIRECT LDL Routine 01/07/2025 10:56 AM EDT Fatty liver MICROALBUMIN CREATININE URINE RATIO Routine 01/07/2025 10:56 AM EDT Type 2 diabetes mellitus with diabetic neuropathy, without long-term current use of insulin (CMS/HCC V24, CMS/HCC V28) HEMOGLOBIN A1C Routine 01/07/2025 10:56 AM EDT Type 2 diabetes mellitus with diabetic neuropathy, without long-term current use of insulin (CMS/HCC V24, CMS/HCC V28) HEPATITIS PANEL, ACUTE WITH REFLEX TO CONFIRMATION Routine 08/06/2024 10:33 AM EDT Elevated LFTs DIABETES FOOT EXAM Routine 04/02/2023 HIV SCREENING Routine 05/03/2022 COLONOSCOPY Routine 08/03/2021 from Last 3 Months or Most Recently Relevant to Health Maintenance Results * (ABNORMAL) Lipid panel with reflex to direct LDL (01/07/2025 10:56 AM EDT) Pathologist [facility] Cholesterol 112 0 - 200 mg/dL LAB CHEMISTRY METHOD 01/07/2025 2:16 PM EDT [facility] Triglycerides 149 0 - 150 mg/dL LAB CHEMISTRY METHOD 01/07/2025 2:16 PM EDT [facility] HDL 19(L) >=40 mg/dL LAB CHEMISTRY METHOD 01/07/2025 2:16 PM T [facility] LDL Calculated 63 0 - 100 mg/dL LAB CHEMISTRY METHOD 01/07/2025 2:16 PM T [facility] Comment:Estimated LDL Calcul ated using equation: Total cholesterol - HDL cholesterol - (Triglycerides/5) VLDL Cholesterol Toan 29.8 mg/dL LAB CHEMISTRY METHOD 01/07/2025 2:16 PM EDT [facility] Non HDL Chol. (LDL+VLDL) 93 <145 mg/dL LAB CHEMISTRY METHOD 01/07/2025 2:16 PM T [facility] Chol/HDL Ratio 5.9(H) 0.0 - 4.4 LAB CHEMISTRY METHOD 01/07/2025 2:16 PM [facility] Blood Venous blood specimen / Unknown Venipuncture / Unknown 01/07/2025 10:56 AM EDT 01/07/2025 10:56 AM EDT us Jan [facility] LAB BLOOD ORDERABLES Final Resu lt [facility] [address] [place] [address], * (ABNORMAL) Liver fibrosis, fibrotest-actitest panel (01/07/2025 10:56 AM EDT) Fibrosis Score 0.91 01/15/2025 1:42 AM EDT [facility] Fibrosis Stage F4 01/15/2025 1:42 AM EDT [facility] Fibrosis Interpretation SEE NOTE 01/15/2025 1:42 AM EDT [facility] Comment: severe fibrosis Fibro Test Score (f) Metavir Score f>=0 and f<=0.21 : F0 (no fibrosis) f>0.21 and f<=0.27 : F0-F1 (no fibrosis) f>0.27 and f<=0.31 : F1 (minimal fibrosis) f>0.31 and f<=0.48 : F1-F2 (minimal fibrosis) f>0.48 and f<=0.58 : F2 (moderate fibrosis) f>0.58 and f<=0.72 : F3 (advanced fibrosis) f>0.72 and f<=0.74 : F3-F4 (advanced fibrosis) f>0.74 and f<=1.00 : F4 (severe fibrosis) Necroinflammat Activity Score 0.16 01/15/2025 1:42 AM EDT [facility] Necroinflammat Activity Grade A0 01/15/2025 1:42 AM EDT [facility] Necroinflammat Interpretation SEE NOTE 01/15/2025 1:42 AM EDT [facility] Comment: no activity ActiTest Score (a) Metavir Score a>=0 and a<=0.17 : A0 (no activity) a>0.17 and a<=0.29 : A0-A1 (no activity) a>0.29 and a<=0.36 : A1 (minimal activity) a>0.36 and a<=0.52 : A1-A2 (minimal activity) a>0.52 and a<=0.60 : A2 (significant activity) a>0.60 and a<=0.62 : A2-A3 (significant activity) a>0.62 and a<=1.00 : A3 (severe activity) Bilirubin Total 1.1 0.2 - 1.2 mg/dL 01/15/2025 1:42 AM EDT [facility] Gamma Glutamyl Transferase (GGT) 1123(H) 3 - 85 U/L 01/15/2025 1:42 AM EDT [facility] Alanine Aminotransferase (ALT) 18 9 - 46 U/L 01/15/2025 1:42 AM EDT [facility] Lxhyd-7-Gqnkdqtxtmiw n 278 106 - 279 mg/dL 01/15/2025 1:42 AM EDT [facility] Haptoglobin 66 43 - 212 mg/dL 01/15/2025 1:42 AM EDT [facility] Apolipoprotein A1 137 94 - 176 mg/dL 01/15/2025 1:42 AM EDT [facility] Reference ID [id number] 01/15/2025 1:42 AM EDT [facility] Footnote SEE NOTE 01/15/2025 1:42 AM EDT [facility] Comment: The reliability of results is dependent on compliance with the preanalytical and analytical conditions recommended by [employer]. The tests have to be deferred for: acute hemolysis, acute hepatitis, acute inflammation, extra hepatic cholestasis. The advice of a specialist should be sought for interpretation in chronic hemolysis and Gilbert's syndrome. The test interpretation is not validated in liver transplant patients. Isolated extreme values of one of the components should lead to caution in interpreting the results. In case of discordance between a biopsy result and a test, it is recommended to seek the advice of a specialist. The causes of these discordances could be due to a flaw of the test or to a flaw in the biopsy: i.e. a liver biopsy has a 33% variability rate for one fibrosis stage. FibroTest is interpretable for chronic hepatitis B and C, alcoholic and non alcoholic steatosis. ActiTest is interpretable for chronic hepatitis B and C. The performance characteristics have been determined by [employer], [place]. It has not been cleared or approved by the U.S. Food and Drug Administration. Performance characteristics refer to the analytical performance of the test. [employer], the associated logo, Parekh Benedict and all associated [employer] bender are the registered trademarks of [employer]. All third democrat bender - (R) and (TM) - are the property of their respective owners. (C) 1495-1303 [employer]. All rights reserved. Test Performed at: [facility] [address] [place] [address] Geovanny Carednas MD, PhD, JAN Blood Venous blood specimen / Unknown Venipuncture / Unknown 01/07/2025 10:56 AM EDT 01/07/2025 10:56 AM EDT us Jan [facility] LAB BLOOD ORDERABLES Final Resu lt [facility]TH[facility] TREJO [address] [place] [address] * (ABNORMAL) CBC auto differential (01/07/2025 10:56 AM EDT) WBC 3.4(L) 4.8 - 10.8 K/mcL LAB HEMETOLOGY [facility] RBC 3.40(L) 4.50 - 5.50 M/mcL LAB HEMETOLOGY METHOD 01/07/2025 1[facility] Hemoglobin 12.4(L) 13.5 - 17.5 g/dL LAB HEMETOLOGY METHOD 01/07/2025 1:27 [facility] Hematocrit 36.5(L) 42.0 - 54.0 % LAB HEMETOLOGY METHOD 01/07/2025 1:27 [facility] MCV 106.4(H) 79.0 - 98.0 FL LAB HEMETOLOGY METHOD 01/07/2025 1:27 [facility] MCH 36.2(H) 27.0 - 32.0 pcg LAB HEMETOLOGY METHOD 01/07/2025 1:27 [facility] MCHC 34.0 32.0 - 37.0 g/dL LAB HEMETOLOGY METHOD 01/07/2025 1:27 PM [facility] RDW 12.3 11.0 - 15.0 % LAB HEMETOLOGY METHOD 01/07/2025 1:27 PM [facility] Platelets 129(L) 130 - 400 K/mcL LAB HEMETOLOGY METHOD 01/07/2025 1:27 PM [facility] MPV 11.0 7.0 - 11.0 FL LAB HEMETOLOGY METHOD 01/07/2025 1:27 PM [facility] NRBC 0.0 <1.0 % LAB HEMETOLOGY METHOD 01/07/2025 1:27 PM [facility] NRBC Absolute 0.00 <0.10 K/mcL LAB HEMETOLOGY METHOD 01/07/2025 1:27 PM [facility] Neutrophils Relative 52.4 % LAB HEMETOLOGY METHOD 01/07/2025 1:27 PM [facility] Lymphocytes Relative 31.8 % LAB HEMETOLOGY METHOD 01/07/2025 1:27 PM [facility] Monocytes Relative 12.5 % LAB HEMETOLOGY METHOD 01/07/2025 1:27 PM [facility] Eosinophils Relative 2.4 % LAB HEMETOLOGY METHOD 01/07/2025 1:27 PM [facility] Basophils Relative 0.6 % LAB HEMETOLOGY METHOD 01/07/2025 1:27 PM [facility] Immature Granulocytes Relative 0.3 % LAB HEMETOLOGY METHOD 01/07/2025 1:27 PM [facility] Neutrophils Absolute 1.77 1.50 - 7.00 K/mcL LAB HEMETOLOGY METHOD 01/07/2025 1:27 PM [facility] Lymphocytes Absolute 1.07 1.00 - 5.00 K/mcL LAB HEMETOLOGY METHOD 01/07/2025 1:27 PM EDT [facility] Monocytes Absolute 0.42 0.20 - 1.00 K/mcL LAB HEMETOLOGY METHOD 01/07/2025 1:27 PM EDT [facility] Eosinophils Absolute 0.08 0.00 - 0.50 K/[facility] LAB HEMETOLOGY METHOD 01/07/2025 1:27 PM EDT [facility] Basophils Absolute 0.02 0.00 - 0.20 K/[facility] LAB HEMETOLOGY METHOD 01/07/2025 1:27 PM EDT [facility] Immature Granulocytes Absolute 0.01 0.00 - 0.03 K/mcL LAB HEMETOLOGY METHOD 01/07/2025 1:27 PM EDT [facility] Blood Venous blood specimen / Unknown Venipuncture / Unknown 01/07/2025 10:56 AM EDT 01/07/2025 10:56 AM EDT us Jan [facility] LAB BLOOD ORDERABLES Final Resu lt [facility] [address] [place] [address], * Microalbumin creatinine urine ratio (01/07/2025 10:56 AM EDT) Creatinine, Urine 87.0 mg/dL LAB CHEMISTRY METHOD 01/07/2025 2:52 PM EDT [facility] Microalb, Ur 8.4 0.0 - 29.0 mg/L LAB CHEMISTRY METHOD 01/07/2025 2:52 PM EDT [facility] Microalb/Creat Ratio 10 <30 mg/g creat LAB CHEMISTRY METHOD 01/07/2025 2:52 PM EDT [facility] Urine Urine specimen obtained by clean catch procedure / Unknown Non-blood Collection / Unknown 01/07/2025 10:56 AM EDT 01/07/2025 10:56 AM EDT us Severino Martinez NP LAB URINE ORDERABLES Final Res ult Performing Organization Address [facility]/ZIP Co de Phone Number [facility] [address] [place] [address], [place] [phone] * Hemoglobin A1c (01/07/2025 10:56 AM EDT) Pathologist [facility] Hemoglobin A1C 5.8 <6.5 % LAB CHEMISTRY METHOD 01/07/2025 11:28 PM EDT [facility] Mean Bld Glu Estim. 120 mg/dL LAB CHEMISTRY METHOD 01/07/2025 11:28 PM EDT [facility] Blood Venous blood specimen / Unknown Venipuncture / Unknown 01/07/2025 10:56 AM EDT 01/07/2025 10:56 AM EDT us Severino Martinez NP LAB BLOOD ORDERABLES Final Res ult Performing Organization Address [facility]/ZIP Co de Phone Number [facility] [address] [place] [address], [place] [phone] * (ABNORMAL) Comprehensive metabolic panel (01/07/2025 10:56 AM EDT) [facility] Sodium 131(L) 133 - 145 mmol/L LAB CHEMISTRY METHOD 01/07/2025 2:18 PM EDT [facility] Potassium 5.4 3.5 - 5.5 mmol/L LAB CHEMISTRY METHOD 01/07/2025 2:18 PM EDT [facility] Chloride 96 96 - 110 mmol/L LAB CHEMISTRY METHOD 01/07/2025 2:18 PM EDT [facility] CO2 24 21 - 32 mmol/L LAB CHEMISTRY METHOD 01/07/2025 2:18 PM [facility] Anion Gap 11 3 - 11 LAB CHEMISTRY METHOD 01/07/2025 2:18 PM [facility] Glucose 107(H) 70 - 100 mg/dL LAB CHEMISTRY METHOD 01/07/2025 2:18 PM [facility] BUN 5 5 - 25 mg/dL LAB CHEMISTRY METHOD 01/07/2025 2:18 PM [facility] Creatinine 0.86 0.70 - 1.30 mg/dL LAB CHEMISTRY METHOD 01/07/2025 2:18 PM [facility] eGFR 100 >=60 mL/min/1. 73m2 LAB CHEMISTRY METHOD 01/07/2025 2:18 PM [facility] Comment:Calculation based on the Chronic Kidney Disease Epidemiology Collaboration (CKD-EPI) equation refit without adjustment for race. BUN/Creatinine Ratio 5.8 LAB CHEMISTRY METHOD 01/07/2025 2:18 PM [facility] Calcium 9.0 8.5 - 10.5 mg/dL LAB CHEMISTRY METHOD 01/07/2025 2:18 PM [facility] AST (SGOT) 76(H) 10 - 42 unit/L LAB CHEMISTRY METHOD 01/07/2025 2:18 PM [facility] ALT (SGPT) 40 10 - 60 unit/L LAB CHEMISTRY METHOD 01/07/2025 2:18 PM [facility] Alkaline Phosphatase 170(H) 42 - 121 unit/L LAB CHEMISTRY METHOD 01/07/2025 2:18 PM [facility] Total Protein 6.5 6.0 - 8.0 g/dL LAB CHEMISTRY METHOD 01/07/2025 2:18 PM [facility] Albumin 2.9(L) 3.2 - 5.0 g/dL LAB CHEMISTRY METHOD 01/07/2025 2:18 PM [facility] Total Bilirubin 1.1 0.0 - 1.4 mg/dL LAB CHEMISTRY METHOD 01/07/2025 2:18 PM EDT [facility] Blood Venous blood specimen / Unknown Venipuncture / Unknown 01/07/2025 10:56 AM EDT 01/07/2025 10:56 AM EDT Jan WOLF LAB BLOOD ORDERABLES Final Resu lt [facility] [address] [place] [address], [place] [phone] * Hepatitis panel, acute with reflex to confirmation (08/06/2024 10:33 AM EDT) [facility] Hepatitis B Surface Ag Negative Negative LAB CHEMISTRY METHOD 08/06/2024 12:54 PM EDT [facility] Hepatitis A Antibody IgM Negative Negative LAB CHEMISTRY METHOD 08/06/2024 12:54 PM EDT [facility] Hep B Core IgM Negative Negative LAB CHEMISTRY METHOD 08/06/2024 12:54 PM EDT [facility] Hepatitis C Antibody Negative Negative LAB CHEMISTRY METHOD 08/06/2024 12:54 PM EDT [facility] Blood Venous blood specimen / Unknown Venipuncture / Unknown 08/06/2024 10:33 AM EDT 08/06/2024 11:05 AM EDT Sriram Moreland MD LAB BLOOD ORDERABLES Cathleen l Result [facility] [address] [place] [address], [place] [phone] * Diabetes Foot Exam (04/02/2023) [facility] Diabetes: Annual Foot Exam abstracted Historical Provider HEALTH MAINTENANCE Final Result * HIV Screening (05/03/2022) HIV Screening abstracted Historical Provider HEALTH MAINTENANCE Final Result * Colonoscopy (08/03/2021) [facility] Colonoscopy no interpretation , abstracted Anatomical Region Laterality Modality Other us Historical Provider HEALTH MAINTENANCE Final Result from Last 3 Months or Most Recently Relevant to Health Maintenance Insurance [employer] Advance Directives Documents on File Type Date Recorded 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
== END 2025-01-26 15:02 | disposition home or self-care (01) ==
LOC: HO.HSMS 13:53
PROVIDERS: PCP Internal Medicine; Visit Provider Nurse Practitioner Family
DX: G62.1 Alcoholic polyneuropathy (principal); D64.9 Anemia, unspecified; E67.2 Megavitamin-B6 syndrome; E51.9 Thiamine deficiency, unspecified; E53.8 Deficiency of other specified B group vitamins
CPT/HCPCS: 99214